=== PATIENT | female | born 1950 | race Caucasian/White ===

== ENCOUNTER 2018-01-22 10:25 | Outpatient (CLI) | payer OTHER, SELFPAY ==
--- NOTE | 2018-01-22 13:00 | SATEXT_ITS ---
Assessment: Ms. Mustafa presents for nutritional counseling s/p multiple bowel surgeries. She has had some unintentional weight loss with loss of muscle mass per Ms. Mustafa and also present on general face to face encounter. Ms. Mustafa reports that she has iron deficiency anemia. She describes that her exercise tolerance has improved but is not at her baseline. Ms. Mustafa also reports that she is working on improving her lipid ratio with her diet. Her dietary recall shows that she has cream of wheat with applesauce and a cup of coffee for breakfast. She drinks water and some jillian juice as well. Lunch varies and she may only have lunch three days per week. She may have a tomato or a yogurt. She eats her dinner meal at home with her . She reports that she is not a big eater, but she may have some protein and a vegetable or some pasta salad with a little protein in it. Ms. Mustafa has been using olive oil and eats tuna and salmon to help with her cholesterol. Nutritional Diagnosis: Inadequate protein intake as evidenced by dietary recall related to history of poor appetite. Inadequate intake of iron as evidenced by iron deficiency anemia per labs in [facility]. Intervention: Acknowledged Ms. Mustafa's excellent efforts at improving her nutritional status with all that has been going on. Reviewed her intake with her and noted that her diet is inadequate in protein. Reviewed the role of protein in healing and building muscle such that her gut will work better and she will build lean body mass. If she builds lean body mass, she will have more strength to do more walking and chores. Ms. Mustafa demonstrated a good understanding of the concepts. We came up with ideas to add protein to her current meal plans. Provided written materials. Also reviewed a high iron nutrition therapy. Suggested that she start an iron supplement in addition to a high iron diet as a high iron diet will often just maintain a good hgb/hct and iron stores but it is difficult to rebuild with a high iron diet. Monitoring and Evaluation: 1. Ms. Mustafa will self monitor her progress on her action plans. She is encouraged to contact me with any questions or concerns regarding her nutrition therapies. 2. Evaluation of her nutrition care plan will be ongoing and she may check in with me and we can adjust it as needed. Thank you for the referral.
== END 2018-01-22 10:26 ==
PROVIDERS: PCP Internal Medicine; Visit Provider Dietitian, Registered
DX: K59.00 Constipation, unspecified (principal); R19.7 Diarrhea, unspecified; Z71.3 Dietary counseling and surveillance
CPT/HCPCS: 97802

== ENCOUNTER 2018-06-04 08:00 | Emergency (ER) | payer OTHER, SELFPAY ==
[2018-06-04 08:07] VITALS: BP 148/65; PULSE 71; RESP 16; TEMP 37; O2SAT 98
--- NOTE | 2018-06-04 08:25 | W.ED.GENAD ---
Discharge Plan Disposition Patient Disposition: HOME Discharge Details Chief Complaint: Laceration Clinical Impression: Laceration of right upper arm, Neck strain Primary Care Provider: Kristen Cline ED Provider: Yong De Santiago Home Meds and New Rx's Prescriptions: Continued Slow Fe 142 mg (45 mg iron) tablet extended release 284 mg PO DAILY Qty: 180 RF: 3 celecoxib 100 mg capsule 100 mg PO BID PRN (Reason: back pain) Qty: 90 RF: 0 estradiol 0.5 mg tablet 0.5 mg PO DAILY Qty: 90 RF: 3 aspirin [Aspirin Low-Strength] 81 MG tablet,chewable 81 mg PO DAILY Qty: 100 RF: 11 nystatin-triamcinolone 15 GM ointment 2 ml Topical BID Qty: 2 RF: 2 cyclobenzaprine 5 MG tablet 5 mg PO TID PRNQty: 30 RF: 1 losartan-hydrochlorothiazide 1 EACH tablet 1 tab PO DAILY Qty: 90 RF: 3 ranitidine HCl 150 MG capsule 150 mg PO BID Qty: 180 RF: 3 dicyclomine 10 mg capsule 20 mg PO TID Qty: 90 RF: 3 ibuprofen 200 MG capsule 400 mg PO PRN PRNRF: 0 melatonin-pyridoxine (vit B6) 1 TAB tablet 2 tab PO HS PRNRF: 0 acetaminophen [Tylenol] 325 MG tablet 650 mg PO Q6H PRN PRNRF: 0 Discharge Instructions Instructions: Cervical Strain (ED), Laceration (ED) Additional Instructions: Please see your doctor return to have suture removal in 10 days. Please contact your primary care physician to arrange follow-up. Return to the ER for any worsening or new concerning symptoms. Referrals: Kristen Cline MD [Primary Care Provider] - Discharge Data Discharge Date/Time-TO BE ENTERED AT DEPARTURE: 06/04/18 09:29 Medical Decision Making 8:30 -- 68-year-old female here with laceration to her right elbow, neurovascular intact distally, no invasion of joint space. -- Wound irrigated with copious sterile saline and closed primarily. Neck nonttp midline, tenderness posterior lateral consistent with strain/sprain. Usual and customary discharge instructions provided. With plan for suture removal in 10 days. HPI General Mode of arrival: ambulatory. Date/Time Provider Initiated Documentation: 06/04/18 08:16. Limitations to Documentation: no limitations. Information obtained by: patient. HPI Narrative: 68-year-old female presents with chief complaint of laceration to her right elbow. This occurred at 530 this morning when she tripped and fell onto a wood pallet. Laceration is moderate with no modifiers. Did not bleed heavily. No associated bony pain or numbness or weakness. She did hit her head during the fall but did not lose consciousness. She has no headache. She does have some neck stiffness right neck that she describes as muscular. Related Data Home Medications Medication Instructions Recorded Confirmed aspirin [Aspirin Low-Strength] 81 mg PO DAILY #100 tab 11/10/12 06/04/18 nystatin-triamcinolone 2 ml TOPICAL BID #2 tube 01/09/16 06/04/18 ibuprofen 400 mg PO PRN PRN 12/28/16 06/04/18 melatonin-pyridoxine (vit B6) 2 tab PO HS PRN 05/21/17 06/04/18 cyclobenzaprine 5 mg PO TID PRN #30 tab-cap 07/01/17 06/04/18 losartan-hydrochlorothiazide 1 tab PO DAILY #90 tab 07/08/17 06/04/18 acetaminophen [Tylenol] 650 mg PO Q6H PRN PRN tab 07/25/17 06/04/18 ranitidine HCl 150 mg PO BID #180 tab-cap 12/16/17 06/04/18 celecoxib 100 mg capsule 100 mg PO BID PRN #90 cap 02/17/18 06/04/18 ferrous sulfate ER 142 mg (45 mg 284 mg PO DAILY #180 tab-cap 02/17/18 06/04/18 iron) tablet,extended release estradiol 0.5 mg tablet 0.5 mg PO DAILY #90 tab 02/23/18 06/04/18 dicyclomine 10 mg capsule 20 mg PO TID #90 tab-cap 05/15/18 06/04/18 Previous Rx's Medication Instructions Recorded losartan-hydrochlorothiazide 1 tab PO DAILY #90 tab 07/08/17 acetaminophen [Tylenol] 650 mg PO Q6H PRN PRN tab 07/25/17 ranitidine HCl 150 mg PO BID #180 tab-cap 12/16/17 celecoxib 100 mg capsule 100 mg PO BID PRN #90 cap 02/17/18 ferrous sulfate ER 142 mg (45 mg 284 mg PO DAILY #180 tab-cap 02/17/18 iron) tablet,extended release estradiol 0.5 mg tablet 0.5 mg PO DAILY #90 tab 02/23/18 dicyclomine 10 mg capsule 20 mg PO TID #90 tab-cap 05/15/18 Allergies Allergy/AdvReac Type Severity Reaction Status Date / Time sumatriptan Allergy Severe Anaphylaxsi Verified 06/04/18 08:10 s ciprofloxacin Allergy Unknown Skin Rash Verified 06/04/18 08:10 morphine AdvReac Severe Nausea Verified 06/04/18 08:10 doxycycline monohydrate AdvReac Intermediate vomiting Verified 06/04/18 08:10 [From Vibramycin] Penicillins AdvReac Intermediate Nausea Verified 06/04/18 08:10 tramadol AdvReac Intermediate dizzyness, Verified 06/04/18 08:10 faintness General Stated Complaint: Laceration RAHEL: 4 Review of Systems Integumentary/Breasts Reports as per HPI Neurologic Reports as per HPI [facility] Medical History Colovaginal fistula Depression Hypercholesterolemia Hypertension Incisional hernia Infertility, female Intestinal anastomotic leak Migraine Ovarian cyst, left Small bowel obstruction due to adhesions Surgical History Abdominal hysterectomy Appendectomy Arthroplasty of knee Colectomy Colostomy Oophrectomy, Both Reduction mammoplasty Right subclavian vein triple lumen central line placement (01/23/16) Rotator Cuff Repair Sigmoidoscopy (05/28/17) Tonsillectomy and adenoidectomy colostomy takedown and MIAK (11/14/15) colostomy takedown and MIKA (07/22/17) colovaginal fistula and abd wall hernia (01/23/16) hernia abdominal wall repair (01/23/16) transforaminal nerve root block (04/27/14) Family History Mother Tuberculosis Hyperlipidemia Breast cancer Father Heart disease Other Diabetes Ovarian cancer Social History Smoking/Tobacco Use Status: Never Exam Const General: cooperative and no acute distress HENMT Head: normocephalic and atraumatic Mouth: moist mucous membranes Eyes Conjunctivae: normal conjunctivae Sclera: normal sclerae EOM: EOM intact bilaterally Neck Neck: normal visual inspection, full ROM, supple, no midline deformity and tender (right posterior lateral with no midline tenderness) Cardio Rate: regular rate and not tachycardic Rhythm: regular rhythm Skin General skin exam: no rashes or lesions noted Trauma: laceration (Right posterior elbow 1 cm with no active bleeding into subcutaneous tissue) Neuro General: alert, awake, oriented x3 and tone normal Cognition: normal cognition Speech: speech normal Motor: muscle tone normal throughout Sensory Exam: no sensory deficits noted (distal RUE) Extrem General: no edema Course Vital Signs Temperature 37 C 06/04/18 08:07 Pulse 71 06/04/18 08:07 Respiratory Rate 16 06/04/18 08:07 Blood Pressure 148/65 H 06/04/18 08:07 Pulse Oximetry 98 06/04/18 08:07 Temperature 37 C 06/04/18 08:07 Temperature Source Skin 06/04/18 08:07 Pulse 71 06/04/18 08:07 Respiratory Rate 16 06/04/18 08:07 Respiratory Effort Non-Labored 06/04/18 08:07 Blood Pressure 148/65 H 06/04/18 08:07 Blood Pressure Position Sitting 06/04/18 08:07 Pulse Oximetry 98 06/04/18 08:07 Oxygen Delivery Method Room Air 06/04/18 08:07 Oxygen Flow Rate 0 06/04/18 08:07 Pain Level 6 06/04/18 08:07 Procedures Laceration Laceration 1: Site: upper extremity Side (If applicable): right Size (cm): 1 Description: linear Depth: simple, single layer Local Anesthetic: Bupivicaine 0.5% Amount of anesthesia used (mL): 1 Pre-repair: wound explored, irrigated extensively and deep structures intact Skin layer closed with: other (prolene) Size (cm): 5-0 Number of sutures: 1 Technique: horizontal mattress
--- NOTE | 2018-06-04 08:33 | ED.GENADUL_ITS ---
Discharge Plan Disposition Patient Disposition: HOME Discharge Details Chief Complaint: Laceration Clinical Impression: Laceration of right upper arm, Neck strain Primary Care Provider: Kristen Cline ED Provider: Yong De Santiago Home Meds and New Rx's Prescriptions: Continued Slow Fe 142 mg (45 mg iron) tablet extended release 284 mg PO DAILY Qty: 180 RF: 3 celecoxib 100 mg capsule 100 mg PO BID PRN (Reason: back pain) Qty: 90 RF: 0 estradiol 0.5 mg tablet 0.5 mg PO DAILY Qty: 90 RF: 3 aspirin [Aspirin Low-Strength] 81 MG tablet,chewable 81 mg PO DAILY Qty: 100 RF: 11 nystatin-triamcinolone 15 GM ointment 2 ml Topical BID Qty: 2 RF: 2 cyclobenzaprine 5 MG tablet 5 mg PO TID PRNQty: 30 RF: 1 losartan-hydrochlorothiazide 1 EACH tablet 1 tab PO DAILY Qty: 90 RF: 3 ranitidine HCl 150 MG capsule 150 mg PO BID Qty: 180 RF: 3 dicyclomine 10 mg capsule 20 mg PO TID Qty: 90 RF: 3 ibuprofen 200 MG capsule 400 mg PO PRN PRNRF: 0 melatonin-pyridoxine (vit B6) 1 TAB tablet 2 tab PO HS PRNRF: 0 acetaminophen [Tylenol] 325 MG tablet 650 mg PO Q6H PRN PRNRF: 0 Discharge Instructions Instructions: Cervical Strain (ED), Laceration (ED) Additional Instructions: Please see your doctor return to have suture removal in 10 days. Please contact your primary care physician to arrange follow-up. Return to the ER for any worsening or new concerning symptoms. Referrals: Kristen Cline MD [Primary Care Provider] - Discharge Data Discharge Date/Time-TO BE ENTERED AT DEPARTURE: 06/04/18 09:29 Medical Decision Making 8:30 -- 68-year-old female here with laceration to her right elbow, neurovascular intact distally, no invasion of joint space. -- Wound irrigated with copious sterile saline and closed primarily. Neck nonttp midline, tenderness posterior lateral consistent with strain/sprain. Usual and customary discharge instructions provided. With plan for suture removal in 10 days. HPI General Mode of arrival: ambulatory . Date/Time Provider Initiated Documentation: 06/04/18 08:16 . Limitations to Documentation: no limitations . Information obtained by: patient . HPI Narrative: 68-year-old female presents with chief complaint of laceration to her right elbow. This occurred at 530 this morning when she tripped and fell onto a wood pallet. Laceration is moderate with no modifiers. Did not bleed heavily. No associated bony pain or numbness or weakness. She did hit her head during the fall but did not lose consciousness. She has no headache. She does have some neck stiffness right neck that she describes as muscular. Related Data Home Medications Medication Instructions Recorded Confirmed aspirin [Aspirin Low-Strength] 81 mg PO DAILY #100 tab 11/10/12 06/04/18 nystatin-triamcinolone 2 ml TOPICAL BID #2 tube 01/09/16 06/04/18 ibuprofen 400 mg PO PRN PRN 12/28/16 06/04/18 melatonin-pyridoxine (vit B6) 2 tab PO HS PRN 05/21/17 06/04/18 cyclobenzaprine 5 mg PO TID PRN #30 tab-cap 07/01/17 06/04/18 losartan-hydrochlorothiazide 1 tab PO DAILY #90 tab 07/08/17 06/04/18 acetaminophen [Tylenol] 650 mg PO Q6H PRN PRN tab 07/25/17 06/04/18 ranitidine HCl 150 mg PO BID #180 tab-cap 12/16/17 06/04/18 celecoxib 100 mg capsule 100 mg PO BID PRN #90 cap 02/17/18 06/04/18 ferrous sulfate ER 142 mg (45 mg 284 mg PO DAILY #180 tab-cap 02/17/18 06/04/18 iron) tablet,extended release estradiol 0.5 mg tablet 0.5 mg PO DAILY #90 tab 02/23/18 06/04/18 dicyclomine 10 mg capsule 20 mg PO TID #90 tab-cap 05/15/18 06/04/18 Previous Rx's Medication Instructions Recorded losartan-hydrochlorothiazide 1 tab PO DAILY #90 tab 07/08/17 acetaminophen [Tylenol] 650 mg PO Q6H PRN PRN tab 07/25/17 ranitidine HCl 150 mg PO BID #180 tab-cap 12/16/17 celecoxib 100 mg capsule 100 mg PO BID PRN #90 cap 02/17/18 ferrous sulfate ER 142 mg (45 mg 284 mg PO DAILY #180 tab-cap 02/17/18 iron) tablet,extended release estradiol 0.5 mg tablet 0.5 mg PO DAILY #90 tab 02/23/18 dicyclomine 10 mg capsule 20 mg PO TID #90 tab-cap 05/15/18 Allergies Allergy/AdvReac Type Severity Reaction Status Date / Time sumatriptan Allergy Severe Anaphylaxsi Verified 06/04/18 08:10 s ciprofloxacin Allergy Unknown Skin Rash Verified 06/04/18 08:10 morphine AdvReac Severe Nausea Verified 06/04/18 08:10 doxycycline monohydrate AdvReac Intermediate vomiting Verified 06/04/18 08:10 [From Vibramycin] Penicillins AdvReac Intermediate Nausea Verified 06/04/18 08:10 tramadol AdvReac Intermediate dizzyness, Verified 06/04/18 08:10 faintness General Stated Complaint: Laceration RAHEL: 4 Review of Systems Integumentary/Breasts Reports as per HPI Neurologic Reports as per HPI [facility] Medical History Colovaginal fistula Depression Hypercholesterolemia Hypertension Incisional hernia Infertility, female Intestinal anastomotic leak Migraine Ovarian cyst, left Small bowel obstruction due to adhesions Surgical History Abdominal hysterectomy Appendectomy Arthroplasty of knee Colectomy Colostomy Oophrectomy, Both Reduction mammoplasty Right subclavian vein triple lumen central line placement (01/23/16) Rotator Cuff Repair Sigmoidoscopy (05/28/17) Tonsillectomy and adenoidectomy colostomy takedown and MIKA (11/14/15) colostomy takedown and MIKA (07/22/17) colovaginal fistula and abd wall hernia (01/23/16) hernia abdominal wall repair (01/23/16) transforaminal nerve root block (04/27/14) Family History Mother Tuberculosis Hyperlipidemia Breast cancer Father Heart disease Other Diabetes Ovarian cancer Social History Smoking/Tobacco Use Status: Never Exam Const General: cooperative and no acute distress HENMT Head: normocephalic and atraumatic Mouth: moist mucous membranes Eyes Conjunctivae: normal conjunctivae Sclera: normal sclerae EOM: EOM intact bilaterally Neck Neck: normal visual inspection, full ROM, supple, no midline deformity and tender (right posterior lateral with no midline tenderness) Cardio Rate: regular rate and not tachycardic Rhythm: regular rhythm Skin General skin exam: no rashes or lesions noted Trauma: laceration (Right posterior elbow 1 cm with no active bleeding into subcutaneous tissue) Neuro General: alert, awake, oriented x3 and tone normal Cognition: normal cognition Speech: speech normal Motor: muscle tone normal throughout Sensory Exam: no sensory deficits noted (distal RUE) Extrem General: no edema Course Vital Signs Temperature 37 C 06/04/18 08:07 Pulse 71 06/04/18 08:07 Respiratory Rate 16 06/04/18 08:07 Blood Pressure 148/65 H 06/04/18 08:07 Pulse Oximetry 98 06/04/18 08:07 Temperature 37 C 06/04/18 08:07 Temperature Source Skin 06/04/18 08:07 Pulse 71 06/04/18 08:07 Respiratory Rate 16 06/04/18 08:07 Respiratory Effort Non-Labored 06/04/18 08:07 Blood Pressure 148/65 H 06/04/18 08:07 Blood Pressure Position Sitting 06/04/18 08:07 Pulse Oximetry 98 06/04/18 08:07 Oxygen Delivery Method Room Air 06/04/18 08:07 Oxygen Flow Rate 0 06/04/18 08:07 Pain Level 6 06/04/18 08:07 Procedures Laceration Laceration 1: Site: upper extremity Side (If applicable): right Size (cm): 1 Description: linear Depth: simple, single layer Local Anesthetic: Bupivicaine 0.5% Amount of anesthesia used (mL): 1 Pre-repair: wound explored, irrigated extensively and deep structures intact Skin layer closed with: other (prolene) Size (cm): 5-0 Number of sutures: 1 Technique: horizontal mattress
[2018-06-04] MEDS: Lidocaine/Epinephri/Tetracaine Topical Gel 3 ML TP (08:35)
[2018-06-04] MEDS: Bupivacaine 0.5% Pres-Free 30 ML VIAL IJ (08:35)
== END 2018-06-04 09:29 | disposition home or self-care (01) ==
PROVIDERS: Emergency Provider Student in an Organized Health Care Education/Training Program; PCP Internal Medicine
DX: S51.011A Laceration without foreign body of right elbow, initial encounter (principal); S16.1XXA Strain of muscle, fascia and tendon at neck level, initial encounter; W01.190A Fall on same level from slipping, tripping and stumbling with subsequent striking against furniture, initial encounter; I10 Essential (primary) hypertension
CPT/HCPCS: 12001; 99282

== ENCOUNTER 2018-06-23 02:17 | Outpatient (CLI) | payer OTHER, SELFPAY ==
[2018-06-23 11:59] LABS: ALT 24 U/L (12-78); AST 18 U/L (15-37); Albumin 3.6 g/dL (3.4-5.0); Alkaline Phosphatase 87 U/L (46-116); Anion Gap 8.6 mmol/L (3-11); BUN 21 mg/dL (7-18); Bilirubin, Total 0.5 mg/dL (0.2-1.0); CO2 29.4 mmol/L (21.0-32.0); CREATININE 0.88 mg/dL (0.55-1.02); Calcium 9.1 mg/dL (8.5-10.1); Chloride 100 mmol/L (98-107); Glucose 93 mg/dL (70-100); Sodium 138 mmol/L (136-145); TSH 0.53 uIU/mL (0.358-3.74); Total Protein 6.9 g/dL (6.4-8.2)
== END 2018-06-23 02:37 ==
PROVIDERS: PCP Internal Medicine; Visit Provider Internal Medicine
DX: E88.09 Other disorders of plasma-protein metabolism, not elsewhere classified (principal); G47.19 Other hypersomnia; I10 Essential (primary) hypertension; D64.9 Anemia, unspecified
CPT/HCPCS: 36415; 80053; 84443

== ENCOUNTER 2018-07-06 00:39 | Outpatient (CLI) | payer OTHER, SELFPAY ==
--- NOTE | 2018-07-06 12:18 | DI.MAMMO_ITS ---
SYMPTOMS/DIAGNOSIS: SCREENING, Z12.31 MAMMOGRAM: Mammograms were interpreted according to the usual protocol including computer analysis with CAD system, tomosynthesis and C view imaging. Comparison is made with exams from 2012 through 2017. The breasts are composed of heterogeneously dense fibroglandular tissue, breast density Category C. No suspicious masses or suspicious microcalcifications are seen. There has been no significant change. IMPRESSION: Category IC, negative mammogram. Yearly screening mammography is recommended. [facility] ASSESSMENT OF FINDINGS: Negative. Category 1. Patient will receive a letter notifying them of these results. Bi-RADS category C. The breasts are heterogeneously dense, which may obscure small masses.
== END 2018-07-06 00:59 ==
PROVIDERS: PCP Internal Medicine; Visit Provider Nurse Practitioner Family
DX: Z12.31 Encounter for screening mammogram for malignant neoplasm of breast (principal)
CPT/HCPCS: 77063; 77067

== ENCOUNTER 2018-08-12 04:22 | Observation (INO) | payer OTHER, SELFPAY ==
[2018-08-12 04:25] VITALS: BP 147/78; PULSE 103; RESP 16; TEMP 36.3; O2SAT 99
--- NOTE | 2018-08-12 04:27 | DI.CT_ITS ---
SYMPTOM/DIAGNOSIS: ABD PAIN, ? OBSTRUCTION ABDOMEN AND PELVIC CT: A history of hernia repair and also colostomy with reversal in this patient with mid abdominal pain. The study was carried out according to the usual protocol with an intravenous administration of 84 cc's of Omnipaque 350. The lower thorax is unremarkable. There are apparent simple cysts in the left hepatic lobe. The liver is otherwise unremarkable with no evidence of a mass. The gallbladder is distended. There are no stones. There is no ductal dilatation. The pancreas, spleen and adrenals are normal. The kidneys are intact with no evidence of hydronephrosis or a mass or cyst. Evaluation of the bowel reveals suture lines in the upper pelvis to the left of the midline in the vicinity of a periventricular ventral hernia. Dilated fluid filled thickened loops of small bowel are noted in the abdomen and upper pelvis. A transition point is probably in the right lower quadrant adjacent to stasis within a dilated small bowel loop. There is no evidence of an acute appendix. The bladder is unremarkable. The reproductive organs as visualized are unremarkable. There is no evidence of free air or free fluid in the intraperitoneal space. No acute bony abnormality is seen. There are degenerative changes involving the lumbar spine with multi level disc narrowing and a vacuum disc identified at L 4-5. Note is made of a ventral hernia in the supra-umbilical wall which contains fat. A ventral hernia is noted in the tri- umbilical wall containing bowel loops with relative decompression presumably representing portions of the transverse colon. There is no abdominal aortic aneurysm. There is no lymphadenopathy or evidence of an intra-abdominal or pelvic mass. SUMMARY: Findings consistent with small bowel obstruction with a presumed transition point in the right lower quadrant. Please see the above discussion.
--- NOTE | 2018-08-12 04:31 | W.ED.GENAD ---
Discharge Plan Disposition Patient Disposition: [facility] INPATIENT Condition: Stable Discharge Details Chief Complaint: Abd Prob Clinical Impression: SBO (small bowel obstruction) Primary Care Provider: Kristen Cline ED Provider: Marlon Anne Home Meds and New Rx's Prescriptions: No Action Slow Fe 142 mg (45 mg iron) tablet extended release 284 mg PO DAILY Qty: 180 RF: 3 celecoxib 100 mg capsule 100 mg PO BID PRN (Reason: back pain) Qty: 90 RF: 0 estradiol 0.5 mg tablet 0.5 mg PO DAILY Qty: 90 RF: 3 aspirin [Aspirin Low-Strength] 81 MG tablet,chewable 81 mg PO DAILY Qty: 100 RF: 11 ranitidine HCl 150 MG capsule 150 mg PO BID Qty: 180 RF: 3 dicyclomine 10 mg capsule 20 mg PO TID Qty: 90 RF: 3 losartan-hydrochlorothiazide 50-12.5 mg tablet 1 tab PO DAILY Qty: 90 RF: 3 melatonin-pyridoxine (vit B6) 1 TAB tablet 2 tab PO HS PRNRF: 0 acetaminophen [Tylenol] 325 MG tablet 650 mg PO Q6H PRN PRNRF: 0 Medical Decision Making 68 yo female with hx of multiple priors surgeries and sbo's, comes in with complaint of I think I have another obstruction. She states she started to have abdominal cramping last night which normally indicates he is developing a sbo. She stopped eating but the symptoms continued and she has nausea, no vomit, so came here. She is in no distress on exam with mild abdominal tenderness of mid and upper abdomen. Will obtain ct to eval for sbo and labs to eval for other potential causes of pain such as pancreatitis. pt remains hd stable, sbo on ct. Spoke with Dr. way who accepts admission Differential Diagnosis sbo, ileus, pancreatitis Imaging Data Radiologic Study: Attestation: I personally reviewed and interpreted this imaging study as follows: Imaging: CT Scan Radiologist's impression: CT Abdomen and Pelvis With Contrast EXAM DATE/TIME: 08/12/2018 4:29 AM CLINICAL HISTORY: 68 years old, female; Pain; Abdominal pain; Localized; Other: Mid abd; Prior surgery; Surgery date: 6+ months; Surgery type: Colostomy and reversal, hernia repair TECHNIQUE: Axial computed tomography images of the abdomen and pelvis with intravenous contrast. All CT scans at this facility use at least one of these dose optimization techniques: automated exposure control; mA and/or kV adjustment per patient size (includes targeted exams where dose is matched to clinical indication); or iterative reconstruction. Coronal and sagittal reformatted images were created and reviewed. CONTRAST: Contrast Material: 84 ml of Omnipaque 350; Contrast Route: IV COMPARISON: CT ABD PELVIS WITH CONTRAST 12/16/2017 11:55 PM FINDINGS: Lower thorax: No acute findings. ABDOMEN: Liver: Simple cyst in the left lobe coronal image 49. Adjacent hypodensity in the left lobe measuring 8 mm is not clearly cystic Gallbladder and bile ducts: Normal. No calcified stones. No ductal dilation. Pancreas: Normal. No ductal dilation. Spleen: Normal. No splenomegaly. CHERRIE CANNON Preliminary Radiology Report REAL ESTATE RECRUITER (QA) DISCREPANCY? If there is a discrepancy between the preliminary and final interpretation, please notify [employer] via [email or web address]. If you do not have access to our QA portal, call our QA team at [phone] CONFIDENTIALITY STATEMENT This report is intended only for the use of the referring physician, and only in accordance with law, If you received this in error, call [phone] Page 2 of 2 Adrenals: Normal. No mass. Kidneys and ureters: Normal. No hydronephrosis. Stomach and bowel: Suture lines noted in the upper pelvis and to the left of midline at the level of the periumbilical ventral hernia Dilated fluid-filled mildly thickened loops of small bowel in the abdomen and upper pelvis. Transition point suspected in the right lower quadrant coronal image 49 adjacent to stasis within a dilated small bowel loop Appendix: No evidence of appendicitis. PELVIS: Bladder: Unremarkable as visualized. Reproductive: Unremarkable as visualized. ABDOMEN and PELVIS: Intraperitoneal space: No free air. No significant fluid collection. Bones/joints: No acute fracture. No dislocation. Degenerative changes in the spine Soft tissues: Ventral hernia in the supraumbilical wall containing fat. Ventral hernia in the periumbilical wall containing bowel loops with relative decompression presumably representing portions of the transverse colon and Vasculature: Normal. No abdominal aortic aneurysm. Lymph nodes: Normal. No enlarged lymph nodes. IMPRESSION: Findings in keeping with small bowel obstruction. Presumed transition point in the right lower quadrant as described Thank you for allowing us to participate in the care of your patient. Lab Data Lab results reviewed: Yes I reviewed the patient's lab results. HPI General Mode of arrival: ambulatory. Date/Time Provider Initiated Documentation: 08/12/18 04:24. Limitations to Documentation: no limitations. Information obtained by: patient. History of Present Illness 68 year old F presents to the emergency department with the chief complaint of abdominal cramping, described as moderate, with intensity rated at 6. Quality is described as sharp, and is localized to the abdomen. Patient reports no radiation. Patient started experiencing this hour(s) (10) and it has been constant. No relieving factors improve symptom(s), No exacerbating factors reported . Patient notes other (nausea). Patient did receive the following treatments prior to arrival, none Related Data Home Medications Medication Instructions Recorded Confirmed aspirin [Aspirin Low-Strength] 81 mg PO DAILY #100 tab 11/10/12 06/17/18 melatonin-pyridoxine (vit B6) 2 tab PO HS PRN 05/21/17 06/17/18 acetaminophen [Tylenol] 650 mg PO Q6H PRN PRN tab 07/25/17 06/17/18 ranitidine HCl 150 mg PO BID #180 tab-cap 12/16/17 06/17/18 celecoxib 100 mg capsule 100 mg PO BID PRN #90 cap 02/17/18 06/17/18 ferrous sulfate ER 142 mg (45 mg 284 mg PO DAILY #180 tab-cap 02/17/18 06/17/18 iron) tablet,extended release estradiol 0.5 mg tablet 0.5 mg PO DAILY #90 tab 02/23/18 06/17/18 dicyclomine 10 mg capsule 20 mg PO TID #90 tab-cap 05/15/18 06/17/18 losartan 50 mg-hydrochlorothiazide 1 tab PO DAILY #90 tab 07/14/18 12.5 mg tablet Previous Rx's Medication Instructions Recorded acetaminophen [Tylenol] 650 mg PO Q6H PRN PRN tab 07/25/17 ranitidine HCl 150 mg PO BID #180 tab-cap 12/16/17 celecoxib 100 mg capsule 100 mg PO BID PRN #90 cap 02/17/18 ferrous sulfate ER 142 mg (45 mg 284 mg PO DAILY #180 tab-cap 02/17/18 iron) tablet,extended release estradiol 0.5 mg tablet 0.5 mg PO DAILY #90 tab 02/23/18 dicyclomine 10 mg capsule 20 mg PO TID #90 tab-cap 05/15/18 losartan 50 mg-hydrochlorothiazide 1 tab PO DAILY #90 tab 07/14/18 12.5 mg tablet Allergies Allergy/AdvReac Type Severity Reaction Status Date / Time sumatriptan Allergy Severe Anaphylaxsi Verified 06/17/18 08:52 s ciprofloxacin Allergy Unknown Skin Rash Verified 06/17/18 08:52 morphine AdvReac Severe Nausea Verified 06/17/18 08:52 doxycycline monohydrate AdvReac Intermediate vomiting Verified 06/17/18 08:52 [From Vibramycin] Penicillins AdvReac Intermediate Nausea Verified 06/17/18 08:52 tramadol AdvReac Intermediate dizzyness, Verified 06/17/18 08:52 faintness General Stated Complaint: Abd Prob RAHEL: 4 Review of Systems Review of Systems All systems reviewed & are unremarkable except as noted in HPI and below Constitutional Denies chills, Denies fever(s) and Denies weakness ENT Denies change in voice Cardiovascular Denies chest pain and Denies dyspnea Respiratory Denies cough and Denies dyspnea Gastrointestinal Denies vomiting Genitourinary Denies dysuria Musculoskeletal Denies joint swelling Integumentary/Breasts Denies rash Neurologic Denies weakness [facility] Medical History Colovaginal fistula Depression Hypercholesterolemia Hypertension Incisional hernia Infertility, female Intestinal anastomotic leak Migraine Ovarian cyst, left Small bowel obstruction due to adhesions Surgical History Abdominal hysterectomy Appendectomy Arthroplasty of knee Colectomy Colostomy Oophrectomy, Both Reduction mammoplasty Right subclavian vein triple lumen central line placement (01/23/16) Rotator Cuff Repair Sigmoidoscopy (05/28/17) Tonsillectomy and adenoidectomy colostomy takedown and MKIA (11/14/15) colostomy takedown and MIKA (07/22/17) colovaginal fistula and abd wall hernia (01/23/16) hernia abdominal wall repair (01/23/16) transforaminal nerve root block (04/27/14) Family History Mother Tuberculosis Hyperlipidemia Breast cancer Father Heart disease Other Diabetes Ovarian cancer Social History Smoking and Tabacco status: Never Exam Const General: no acute distress Orientation: alert HENMT Head: normal to inspection Ears: external ears normal General nose exam: external nose normal Mouth: moist mucous membranes Eyes General: appearance normal, both eyes and all related structures Neck Neck: normal visual inspection Resp Effort & Inspection: normal respiratory effort and able to speak in complete sentences Cardio Rate: regular rate GI Palpation: soft Skin General skin exam: no rashes or lesions noted Neuro General: alert and oriented x3 Extrem General: normal to inspection Psych Mental Status: mental status grossly normal Course Vital Signs Temperature 36.3 C L 08/12/18 04:25 Pulse 103 H 08/12/18 04:25 Respiratory Rate 16 08/12/18 04:25 Blood Pressure 147/78 H 08/12/18 04:25 Pulse Oximetry 99 08/12/18 04:25 Temperature 36.3 C L 08/12/18 04:25 Temperature Source Temporal Artery Scan 08/12/18 04:25 Pulse 103 H 08/12/18 04:25 Respiratory Rate 16 08/12/18 04:25 Respiratory Effort 08/12/18 04:25 Blood Pressure 147/78 H 08/12/18 04:25 Blood Pressure Position Sitting 08/12/18 04:25 Pulse Oximetry 99 08/12/18 04:25 Oxygen Delivery Method Room Air 08/12/18 04:25 Oxygen Flow Rate 0 08/12/18 04:25
--- NOTE | 2018-08-12 04:35 | ED.GENADUL_ITS ---
Discharge Plan Disposition Patient Disposition: [facility] INPATIENT Condition: Stable Discharge Details Chief Complaint: Abd Prob Clinical Impression: SBO (small bowel obstruction) Primary Care Provider: Kristen Cline ED Provider: Marlon Anne Home Meds and New Rx's Prescriptions: No Action Slow Fe 142 mg (45 mg iron) tablet extended release 284 mg PO DAILY Qty: 180 RF: 3 celecoxib 100 mg capsule 100 mg PO BID PRN (Reason: back pain) Qty: 90 RF: 0 estradiol 0.5 mg tablet 0.5 mg PO DAILY Qty: 90 RF: 3 aspirin [Aspirin Low-Strength] 81 MG tablet,chewable 81 mg PO DAILY Qty: 100 RF: 11 ranitidine HCl 150 MG capsule 150 mg PO BID Qty: 180 RF: 3 dicyclomine 10 mg capsule 20 mg PO TID Qty: 90 RF: 3 losartan-hydrochlorothiazide 50-12.5 mg tablet 1 tab PO DAILY Qty: 90 RF: 3 melatonin-pyridoxine (vit B6) 1 TAB tablet 2 tab PO HS PRNRF: 0 acetaminophen [Tylenol] 325 MG tablet 650 mg PO Q6H PRN PRNRF: 0 Medical Decision Making 68 yo female with hx of multiple priors surgeries and sbo's, comes in with complaint of I think I have another obstruction. She states she started to have abdominal cramping last night which normally indicates he is developing a sbo. She stopped eating but the symptoms continued and she has nausea, no vomit, so came here. She is in no distress on exam with mild abdominal tenderness of mid and upper abdomen. Will obtain ct to eval for sbo and labs to eval for other potential causes of pain such as pancreatitis. pt remains hd stable, sbo on ct. Spoke with Dr. way who accepts admission Differential Diagnosis sbo, ileus, pancreatitis Imaging Data Radiologic Study: Attestation: I personally reviewed and interpreted this imaging study as follows: Imaging: CT Scan Radiologist's impression: CT Abdomen and Pelvis With Contrast EXAM DATE/TIME: 08/12/2018 4:29 AM CLINICAL HISTORY: 68 years old, female; Pain; Abdominal pain; Localized; Other: Mid abd; Prior surgery; Surgery date: 6+ months; Surgery type: Colostomy and reversal, hernia repair TECHNIQUE: Axial computed tomography images of the abdomen and pelvis with intravenous contrast. All CT scans at this facility use at least one of these dose optimization techniques: automated exposure control; mA and/or kV adjustment per patient size (includes targeted exams where dose is matched to clinical indication); or iterative reconstruction. Coronal and sagittal reformatted images were created and reviewed. CONTRAST: Contrast Material: 84 ml of Omnipaque 350; Contrast Route: IV COMPARISON: CT ABD PELVIS WITH CONTRAST 12/16/2017 11:55 PM FINDINGS: Lower thorax: No acute findings. ABDOMEN: Liver: Simple cyst in the left lobe coronal image 49. Adjacent hypodensity in the left lobe measuring 8 mm is not clearly cystic Gallbladder and bile ducts: Normal. No calcified stones. No ductal dilation. Pancreas: Normal. No ductal dilation. Spleen: Normal. No splenomegaly. CHERRIE CANNON Preliminary Radiology Report PROPERTY AND CASUALTY INSURANCE AGENT (QA) DISCREPANCY? If there is a discrepancy between the preliminary and final interpretation, please notify [employer] via [email or web address]. If you do not have access to our QA portal, call our QA team at [phone] CONFIDENTIALITY STATEMENT This report is intended only for the use of the referring physician, and only in accordance with law, If you received this in error, call [phone] Page 2 of 2 Adrenals: Normal. No mass. Kidneys and ureters: Normal. No hydronephrosis. Stomach and bowel: Suture lines noted in the upper pelvis and to the left of midline at the level of the periumbilical ventral hernia Dilated fluid-filled mildly thickened loops of small bowel in the abdomen and upper pelvis. Transition point suspected in the right lower quadrant coronal image 49 adjacent to stasis within a dilated small bowel loop Appendix: No evidence of appendicitis. PELVIS: Bladder: Unremarkable as visualized. Reproductive: Unremarkable as visualized. ABDOMEN and PELVIS: Intraperitoneal space: No free air. No significant fluid collection. Bones/joints: No acute fracture. No dislocation. Degenerative changes in the spine Soft tissues: Ventral hernia in the supraumbilical wall containing fat. Ventral hernia in the periumbilical wall containing bowel loops with relative decompression presumably representing portions of the transverse colon and Vasculature: Normal. No abdominal aortic aneurysm. Lymph nodes: Normal. No enlarged lymph nodes. IMPRESSION: Findings in keeping with small bowel obstruction. Presumed transition point in the right lower quadrant as described Thank you for allowing us to participate in the care of your patient. Lab Data Lab results reviewed: Yes I reviewed the patient's lab results. HPI General Mode of arrival: ambulatory . Date/Time Provider Initiated Documentation: 08/12/18 04:24 . Limitations to Documentation: no limitations . Information obtained by: patient . History of Present Illness 68 year old F presents to the emergency department with the chief complaint of abdominal cramping, described as moderate, with intensity rated at 6. Quality is described as sharp, and is localized to the abdomen. Patient reports no radi ation. Patient started experiencing this hour(s) (10) and it has been constant. No relieving factors improve symptom(s), No exacerbating factors reported . Patient notes other (nausea). Patient did receive the following treatments prior to arrival, none Related Data Home Medications Medication Instructions Recorded Confirmed aspirin [Aspirin Low-Strength] 81 mg PO DAILY #100 tab 11/10/12 06/17/18 melatonin-pyridoxine (vit B6) 2 tab PO HS PRN 05/21/17 06/17/18 acetaminophen [Tylenol] 650 mg PO Q6H PRN PRN tab 07/25/17 06/17/18 ranitidine HCl 150 mg PO BID #180 tab-cap 12/16/17 06/17/18 celecoxib 100 mg capsule 100 mg PO BID PRN #90 cap 02/17/18 06/17/18 ferrous sulfate ER 142 mg (45 mg 284 mg PO DAILY #180 tab-cap 02/17/18 06/17/18 iron) tablet,extended release estradiol 0.5 mg tablet 0.5 mg PO DAILY #90 tab 02/23/18 06/17/18 dicyclomine 10 mg capsule 20 mg PO TID #90 tab-cap 05/15/18 06/17/18 losartan 50 mg-hydrochlorothiazide 1 tab PO DAILY #90 tab 07/14/18 12.5 mg tablet Previous Rx's Medication Instructions Recorded acetaminophen [Tylenol] 650 mg PO Q6H PRN PRN tab 07/25/17 ranitidine HCl 150 mg PO BID #180 tab-cap 12/16/17 celecoxib 100 mg capsule 100 mg PO BID PRN #90 cap 02/17/18 ferrous sulfate ER 142 mg (45 mg 284 mg PO DAILY #180 tab-cap 02/17/18 iron) tablet,extended release estradiol 0.5 mg tablet 0.5 mg PO DAILY #90 tab 02/23/18 dicyclomine 10 mg capsule 20 mg PO TID #90 tab-cap 05/15/18 losartan 50 mg-hydrochlorothiazide 1 tab PO DAILY #90 tab 07/14/18 12.5 mg tablet Allergies Allergy/AdvReac Type Severity Reaction Status Date / Time sumatriptan Allergy Severe Anaphylaxsi Verified 06/17/18 08:52 s ciprofloxacin Allergy Unknown Skin Rash Verified 06/17/18 08:52 morphine AdvReac Severe Nausea Verified 06/17/18 08:52 doxycycline monohydrate AdvReac Intermediate vomiting Verified 06/17/18 08:52 [From Vibramycin] Penicillins AdvReac Intermediate Nausea Verified 06/17/18 08:52 tramadol AdvReac Intermediate dizzyness, Verified 06/17/18 08:52 faintness General Stated Complaint: Abd Prob RAHEL: 4 Review of Systems Review of Systems All systems reviewed & are unremarkable except as noted in HPI and below Constitutional Denies chills, Denies fever(s) and Denies weakness ENT Denies change in voice Cardiovascular Denies chest pain and Denies dyspnea Respiratory Denies cough and Denies dyspnea Gastrointestinal Denies vomiting Genitourinary Denies dysuria Musculoskeletal Denies joint swelling Integumentary/Breasts Denies rash Neurologic Denies weakness [facility] Medical History Colovaginal fistula Depression Hypercholesterolemia Hypertension Incisional hernia Infertility, female Intestinal anastomotic leak Migraine Ovarian cyst, left Small bowel obstruction due to adhesions Surgical History Abdominal hysterectomy Appendectomy Arthroplasty of knee Colectomy Colostomy Oophrectomy, Both Reduction mammoplasty Right subclavian vein triple lumen central line placement (01/23/16) Rotator Cuff Repair Sigmoidoscopy (05/28/17) Tonsillectomy and adenoidectomy colostomy takedown and MIKA (11/14/15) colostomy takedown and MIKA (07/22/17) colovaginal fistula and abd wall hernia (01/23/16) hernia abdominal wall repair (01/23/16) transforaminal nerve root block (04/27/14) Family History Mother Tuberculosis Hyperlipidemia Breast cancer Father Heart disease Other Diabetes Ovarian cancer Social History Smoking and Tabacco status: Never Exam Const General: no acute distress Orientation: alert HENMT Head: normal to inspection Ears: external ears normal General nose exam: external nose normal Mouth: moist mucous membranes Eyes General: appearance normal, both eyes and all related structures Neck Neck: normal visual inspection Resp Effort & Inspection: normal respiratory effort and able to speak in complete sentences Cardio Rate: regular rate GI Palpation: soft Skin General skin exam: no rashes or lesions noted Neuro General: alert and oriented x3 Extrem General: normal to inspection Psych Mental Status: mental status grossly normal Course Vital Signs Temperature 36.3 C L 08/12/18 04:25 Pulse 103 H 08/12/18 04:25 Respiratory Rate 16 08/12/18 04:25 Blood Pressure 147/78 H 08/12/18 04:25 Pulse Oximetry 99 08/12/18 04:25 Temperature 36.3 C L 08/12/18 04:25 Temperature Source Temporal Artery Scan 08/12/18 04:25 Pulse 103 H 08/12/18 04:25 Respiratory Rate 16 08/12/18 04:25 Respiratory Effort 08/12/18 04:25 Blood Pressure 147/78 H 08/12/18 04:25 Blood Pressure Position Sitting 08/12/18 04:25 Pulse Oximetry 99 08/12/18 04:25 Oxygen Delivery Method Room Air 08/12/18 04:25 Oxygen Flow Rate 0 08/12/18 04:25
[2018-08-12] MEDS: HYDROmorphone 2 MG/ML VIAL 0.5 MG IVP ×3 (04:55→07:20)
[2018-08-12] MEDS: Normal Saline 1,000 ML 1000 ML IV (04:55)
[2018-08-12] MEDS: Ondansetron 4 MG/2 ML VIAL IVP (04:56)
[2018-08-12 04:57] LABS: Abs Immature Grans 0.04 k/cumm (0.0-0.09); Absolute Basophil Count 0.01 k/cumm (0.0-0.2); Absolute Lymphocyte Count 1.69 k/cumm (1.2-3.4); Absolute Monocyte Count 0.77 k/cumm (0.11-0.7); Absolute Neutrophil Count 11.95 k/cumm (1.2-6.7); Basophils % 0.1; HCT 39.6 % (36.0-46.0); HGB 13.5 g/dL (12.0-15.5); Immature Grans % 0.3; Lymphocytes % 11.7; Mean Corp. HGB Concentration 34.1 g/dL (32.0-36.0); Mean Corpuscular Hemoglobin 32.1 pg (27.0-33.0); Mean Corpuscular Volume 94.1 fL (80-95); Mean Platelet Volume 10.4 fL (8.0-11.0); Monocytes % 5.3; Neutrophils % 82.6; Platelet Count 457 x1000/uL (130-400); RBC 4.21 m/cumm (4.00-5.20); RBC Distribution Width 12.2 % (11.7-14.6); White Blood Cell Count 14.47 k/cumm (4.4-10.8)
[2018-08-12 05:11] LABS: ALT 26 U/L (12-78); AST 20 U/L (15-37); Alkaline Phosphatase 81 U/L (46-116); Anion Gap 13.6 mmol/L (3-11); BUN 19 mg/dL (7-18); Bilirubin, Direct 0.09 mg/dL (0.00-0.20); Bilirubin, Total 0.4 mg/dL (0.2-1.0); CO2 27.4 mmol/L (21.0-32.0); Calcium 9.2 mg/dL (8.5-10.1); Chloride 99 mmol/L (98-107); Glucose 139 mg/dL (70-100); Lipase 163 U/L (73-393); Magnesium 1.9 mg/dL (1.8-2.4); Potassium 3.3 mmol/L (3.5-5.1); Sodium 140 mmol/L (136-145); Total Protein 7.6 g/dL (6.4-8.2)
[2018-08-12] MEDS: Omnipaque 350 MG/ML 100 ML BTL IJ (06:46)
--- NOTE | 2018-08-12 06:49 | DI.VRAD_ITS ---
Addendum created by Cullen Hernandez MD on 08/12/2018 6:51:42 AM EDT THIS REPORT CONTAINS FINDINGS THAT MAY BE CRITICAL TO PATIENT CARE. The findings were verbally communicated via telephone conference with Marlon Anne at 6:51 AM EST on 08/12/2018. The findings were acknowledged and understood. Initial report created on 08/12/2018 6:49:11 AM EDT EXAM: CT Abdomen and Pelvis With Contrast EXAM DATE/TIME: 08/12/2018 4:29 AM CLINICAL HISTORY: 68 years old, female; Pain; Abdominal pain; Localized; Other: Mid abd; Prior surgery; Surgery date: 6+ months; Surgery type: Colostomy and reversal, hernia repair TECHNIQUE: Axial computed tomography images of the abdomen and pelvis with intravenous contrast. All CT scans at this facility use at least one of these dose optimization techniques: automated exposure control; mA and/or kV adjustment per patient size (includes targeted exams where dose is matched to clinical indication); or iterative reconstruction. Coronal and sagittal reformatted images were created and reviewed. CONTRAST: Contrast Material: 84 ml of Omnipaque 350; Contrast Route: IV COMPARISON: CT ABD PELVIS WITH CONTRAST 12/16/2017 11:55 PM FINDINGS: Lower thorax: No acute findings. ABDOMEN: Liver: Simple cyst in the left lobe coronal image 49. Adjacent hypodensity in the left lobe measuring 8 mm is not clearly cystic Gallbladder and bile ducts: Normal. No calcified stones. No ductal dilation. Pancreas: Normal. No ductal dilation. Spleen: Normal. No splenomegaly. Adrenals: Normal. No mass. Kidneys and ureters: Normal. No hydronephrosis. Stomach and bowel: Suture lines noted in the upper pelvis and to the left of midline at the level of the periumbilical ventral hernia Dilated fluid-filled mildly thickened loops of small bowel in the abdomen and upper pelvis. Transition point suspected in the right lower quadrant coronal image 49 adjacent to stasis within a dilated small bowel loop Appendix: No evidence of appendicitis. PELVIS: Bladder: Unremarkable as visualized. Reproductive: Unremarkable as visualized. ABDOMEN and PELVIS: Intraperitoneal space: No free air. No significant fluid collection. Bones/joints: No acute fracture. No dislocation. Degenerative changes in the spine Soft tissues: Ventral hernia in the supraumbilical wall containing fat. Ventral hernia in the periumbilical wall containing bowel loops with relative decompression presumably representing portions of the transverse colon and Vasculature: Normal. No abdominal aortic aneurysm. Lymph nodes: Normal. No enlarged lymph nodes. IMPRESSION: Findings in keeping with small bowel obstruction. Presumed transition point in the right lower quadrant as described Dictated and Authenticated by: Cullen Hernandez MD. Ordering:CRISTY Mason MD
[2018-08-12] MEDS: Normal Saline 1,000 ML 150 ML IV (07:20)
[2018-08-12 07:40] VITALS: BP 136/79; PULSE 85; RESP 16; TEMP 36.9; O2SAT 97
[2018-08-12 07:45] VITALS: BP 120/59; PULSE 85; RESP 16; TEMP 36.3; O2SAT 96
--- NOTE | 2018-08-12 09:59 | PGE_ITS ---
Date of Service Date of service: 08/12/18 Time of Service: 09:56 Subjective Interval history since last seen: pt has long standing hx of surgery and SBO. I did spend about 30 mins reviewing all her Op reports from the last 3 yrs. 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 She has long hx of SBO and is in the hosp about every 6m. She has bentyl which she uses when she feels one coming on. last pn she started having pain and felt very nauseated. the pain progressed and she came into the ED. She had no BS last night. Thi am she does have good BS, nausea has passed. She had pain relief and has been sleeping. No flatus yet no fever chills. no CP or SOB or cough. no dysuria. no leg pain or swelling. She has had no further vaginal d/c. Objective Objective Clinical Data: Abnormal lab results 08/12/18 08/12/18 Range/Units 04:51 04:51 WBC 14.47 H (4.4-10.8) k/cumm Plt Count 457 H (130-400) x1000/uL Absolute Neutrophils 11.95 H (1.2-6.7) k/cumm Absolute Monocytes 0.77 H (0.11-0.7) k/cumm Potassium 3.3 L (3.5-5.1) mmol/L Anion Gap 13.6 H (3-11) mmol/L BUN 19 H (7-18) mg/dL Glucose 139 H (70-100) mg/dL Vital Signs Temperature 36.3 C L 08/12/18 07:45 Temperature Source Temporal Artery Scan 08/12/18 04:25 Pulse 85 08/12/18 07:45 Respiratory Rate 16 08/12/18 07:45 Respiratory Effort 08/12/18 04:25 Blood Pressure 120/59 L 08/12/18 07:45 Blood Pressure Position Sitting 08/12/18 04:25 Pulse Oximetry 96 08/12/18 07:45 Oxygen Delivery Method Room Air 08/12/18 04:25 Oxygen Flow Rate 0 08/12/18 04:25 Pain Level 2 08/12/18 07:45 Intake & Output 03/05/2008/11/18 08/12/18 11:59 23:59 11:59 Weight 58.513 kg Laboratory Results WBC 14.47 k/cumm (4.4-10.8) H 08/12/18 04:51 RBC 4.21 m/cumm (4.00-5.20) 08/12/18 04:51 Hgb 13.5 g/dL (12.0-15.5) 08/12/18 04:51 Hct 39.6 % (36.0-46.0) 08/12/18 04:51 MCV 94.1 fL (80-95) 08/12/18 04:51 MCH 32.1 pg (27.0-33.0) 08/12/18 04:51 MCHC 34.1 g/dL (32.0-36.0) 08/12/18 04:51 RDW 12.2 % (11.7-14.6) 08/12/18 04:51 Plt Count 457 x1000/uL (130-400) H 08/12/18 04:51 MPV 10.4 fL (8.0-11.0) 08/12/18 04:51 Immature Gran % 0.3 08/12/18 04:51 Neutrophils % 82.6 08/12/18 04:51 Lymphocytes % 11.7 08/12/18 04:51 Monocytes % 5.3 08/12/18 04:51 Eosinophils % 0.0 08/12/18 04:51 Basophils % 0.1 08/12/18 04:51 Absolute Neutrophils 11.95 k/cumm (1.2-6.7) H 08/12/18 04:51 Absolute Lymphocytes 1.69 k/cumm (1.2-3.4) 08/12/18 04:51 Absolute Monocytes 0.77 k/cumm (0.11-0.7) H 08/12/18 04:51 Absolute Eosinophils 0.00 k/cumm (0.0-0.7) 08/12/18 04:51 Absolute Basophils 0.01 k/cumm (0.0-0.2) 08/12/18 04:51 Sodium 140 mmol/L (136-145) 08/12/18 04:51 Potassium 3.3 mmol/L (3.5-5.1) L 08/12/18 04:51 Chloride 99 mmol/L (98-107) 08/12/18 04:51 Carbon Dioxide 27.4 mmol/L (21.0-32.0) 08/12/18 04:51 Anion Gap 13.6 mmol/L (3-11) H 08/12/18 04:51 BUN 19 mg/dL (7-18) H 08/12/18 04:51 Creatinine 1.00 mg/dL (0.55-1.02) 08/12/18 04:51 Estimated GFR/1.73 m2 55.30 (mL/min/1.73m2) 08/12/18 04:51 Glucose 139 mg/dL (70-100) H 08/12/18 04:51 Calcium 9.2 mg/dL (8.5-10.1) 08/12/18 04:51 Magnesium 1.9 mg/dL (1.8-2.4) 08/12/18 04:51 Total Bilirubin 0.4 mg/dL (0.2-1.0) 08/12/18 04:51 Conjugated Bilirubin 0.09 mg/dL (0.00-0.20) 08/12/18 04:51 AST 20 U/L (15-37) 08/12/18 04:51 ALT 26 U/L (12-78) 08/12/18 04:51 Alkaline Phosphatase 81 U/L (46-116) 08/12/18 04:51 Total Protein 7.6 g/dL (6.4-8.2) 08/12/18 04:51 Albumin 4.0 g/dL (3.4-5.0) 08/12/18 04:51 Lipase 163 U/L (73-393) 08/12/18 04:51
--- NOTE | 2018-08-12 10:04 | W.PM.HP.N ---
Assessment and Plan (1) Abdominal adhesions: Current visit: No Status: Acute pt has extensive Hx of prior Sx - chart reviewed -she is feeling better after fluids and pain meds She has no N/V currently adn would prefer not to have NGT supportive care pt encouraged to walk (2) SBO (small bowel obstruction): Current visit: Yes Status: Acute (3) Essential hypertension: Current visit: Yes Status: Acute (4) Lumbosacral neuritis: Current visit: No Status: Acute (5) GERD (gastroesophageal reflux disease): Current visit: Yes Status: Chronic History of Present Illness Chief Complaint: sbo Consults Consult date: 08/12/18 Narrative: Interval history since last seen: pt has long standing hx of surgery and SBO. I did spend about 30 mins reviewing all her Op reports from the last 3 yrs. 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 She has long hx of SBO and is in the hosp about every 6m. She has bentyl which she uses when she feels one coming on. last pn she started having pain and felt very nauseated. the pain progressed and she came into the ED. She had no BS last night. Thi am she does have good BS, nausea has passed. She had pain relief and has been sleeping. No flatus yet no fever chills. no CP or SOB or cough. no dysuria. no leg pain or swelling. She has had no further vaginal d/c. Review of Systems Review of Systems All systems reviewed & are unremarkable except as noted in HPI and below Constitutional Reports as per HPI, Reports anorexia, Denies fever(s) and Reports weakness Eyes Reports as per HPI and Denies change in vision ENT Reports system reviewed and no additional complaints, except as docu, Denies dental pain and Denies dysphagia Comments: hx of GERD Cardiovascular Reports as per HPI, Denies chest pain with activity and Denies syncope Comments: hx of htn Respiratory Denies as per HPI, Denies chest congestion and Denies cough Gastrointestinal Reports as per HPI, Reports abdominal pain, Reports cramping, Denies dysphagia and Denies vomiting Comments: no flatus no vaginal discharge Genitourinary Reports system reviewed and no additional complaints, except as docu and Denies dysuria Musculoskeletal Comments: chronic back pain- in part is due to loss of ant abdominal wall Integumentary/Breasts Comments: no lesions or breakdown Neurologic Denies syncope and Reports weakness Endocrine Comments: no DM PFSH Medical History SBO (small bowel obstruction) (Acute) Colovaginal fistula Depression Hypercholesterolemia Hypertension Incisional hernia Infertility, female Intestinal anastomotic leak Migraine Ovarian cyst, left Small bowel obstruction due to adhesions Surgical History Abdominal hysterectomy Appendectomy Arthroplasty of knee Colectomy Colostomy Oophrectomy, Both Reduction mammoplasty Right subclavian vein triple lumen central line placement (01/23/16) Rotator Cuff Repair Sigmoidoscopy (05/28/17) Tonsillectomy and adenoidectomy colostomy takedown and MIKA (11/14/15) colostomy takedown and MIKA (07/22/17) colovaginal fistula and abd wall hernia (01/23/16) hernia abdominal wall repair (01/23/16) transforaminal nerve root block (04/27/14) Family History Mother Tuberculosis Hyperlipidemia Breast cancer Father Heart disease Other Diabetes Ovarian cancer Social History Smoking and Tabacco status: Never Female Reproductive History Menstrual Menopause type: surgical Meds Home Medications Medication Instructions Recorded Confirmed Type aspirin [Aspirin Low-Strength] 81 mg PO DAILY #100 tab 11/10/12 06/17/18 History melatonin-pyridoxine (vit B6) 2 tab PO HS PRN 05/21/17 06/17/18 History acetaminophen [Tylenol] 650 mg PO Q6H PRN PRN tab 07/25/17 06/17/18 Rx ranitidine HCl 150 mg PO BID #180 tab-cap 12/16/17 06/17/18 Rx celecoxib 100 mg capsule 100 mg PO BID PRN #90 cap 02/17/18 06/17/18 Rx ferrous sulfate ER 142 mg (45 mg 284 mg PO DAILY #180 tab-cap 02/17/18 06/17/18 Rx iron) tablet,extended release estradiol 0.5 mg tablet 0.5 mg PO DAILY #90 tab 02/23/18 06/17/18 Rx dicyclomine 10 mg capsule 20 mg PO TID #90 tab-cap 05/15/18 06/17/18 Rx losartan 50 mg-hydrochlorothiazide 1 tab PO DAILY #90 tab 07/14/18 Rx 12.5 mg tablet Allergies Allergy/AdvReac Type Severity Reaction Status Date / Time sumatriptan Allergy Severe Anaphylaxsi Verified 06/17/18 08:52 s ciprofloxacin Allergy Unknown Skin Rash Verified 06/17/18 08:52 morphine AdvReac Severe Nausea Verified 06/17/18 08:52 doxycycline monohydrate AdvReac Intermediate vomiting Verified 06/17/18 08:52 [From Vibramycin] Penicillins AdvReac Intermediate Nausea Verified 06/17/18 08:52 tramadol AdvReac Intermediate dizzyness, Verified 06/17/18 08:52 faintness Exam Const General: cooperative, healthy appearing, comfortable, no acute distress and well developed Nutritional Appearance: average body habitus and well nourished Orientation: awake and oriented x3 HENMT Head: normal to inspection, normocephalic and atraumatic Ears: hearing grossly normal bilaterally General nose exam: external nose normal Face and sinus: normal facial exam Mouth: oral mucosae normal and moist mucous membranes abnormal Teeth and gingiva: dentition normal Eyes General: appearance normal, both eyes and all related structures Conjunctivae: conjunctivae normal Sclera: sclerae normal Pupils: PERRL Chest Chest: normal inspection of the chest Resp Effort & Inspection: normal respiratory effort and able to speak in complete sentences Auscultation: clear to auscultation bilaterally, no rales, no rhonchi and no wheezes Cardio Jugular venous pressure: no JVD Rate: regular rate Rhythm: regular rhythm GI Inspection: scar Palpation: soft Auscultation: abnormal bowel sounds and hyperactive bowel sounds Other: no peritonitis. no R/R/G. +BS- hyperactive. Few are high pitched. loss of domain/lg herniation/retraction of fascia on CT Skin General skin exam: no rashes or lesions noted Other: no open sores or breakdown Extrem General: normal to inspection and no clubbing, cyanosis or edema Results Labs : 08/12/18 04:51 08/12/18 04:51 Laboratory Results - last 24 hr 08/12/18 08/12/18 04:51 04:51 WBC 14.47 H RBC 4.21 Hgb 13.5 Hct 39.6 MCV 94.1 MCH 32.1 MCHC 34.1 RDW 12.2 Plt Count 457 H MPV 10.4 Immature Gran % 0.3 Neutrophils % 82.6 Lymphocytes % 11.7 Monocytes % 5.3 Eosinophils % 0.0 Basophils % 0.1 Absolute Neutrophils 11.95 H Absolute Lymphocytes 1.69 Absolute Monocytes 0.77 H Absolute Eosinophils 0.00 Absolute Basophils 0.01 Sodium 140 Potassium 3.3 L Chloride 99 Carbon Dioxide 27.4 Anion Gap 13.6 H BUN 19 H Creatinine 1.00 Estimated GFR/1.73 m2 55.30 Glucose 139 H Calcium 9.2 Magnesium 1.9 Total Bilirubin 0.4 Conjugated Bilirubin 0.09 AST 20 ALT 26 Alkaline Phosphatase 81 Total Protein 7.6 Albumin 4.0 Lipase 163 Last Vital Signs Temp 36.3 C L 08/12/18 07:45 Pulse 85 08/12/18 07:45 Resp 16 08/12/18 07:45 BP 120/59 L 08/12/18 07:45 Pulse Ox 96 08/12/18 07:45
[2018-08-12] MEDS: ACETAMINOPHEN 1,000 MG/100 ML BTL 400 MG IVPB ×2 (10:28→18:21)
[2018-08-12] MEDS: Lactated Ringers 1,000 ML 125 ML IV ×2 (10:29→19:45)
[2018-08-12] MEDS: FAMOTIDINE 20 MG/50 ML BAG 200 MG IVPB ×2 (11:02→21:41)
[2018-08-12 11:24] VITALS: BP 128/77; PULSE 75; RESP 20; TEMP 36.6; O2SAT 98
[2018-08-12] MEDS: Enoxaparin 30 MG/0.3 ML SYR SC (11:33)
[2018-08-12] MEDS: POTASSIUM CHLORIDE 10 MEQ/100 ML BAG 100 MEQ IVPB (11:34)
[2018-08-12 15:35] VITALS: BP 108/65; PULSE 67; RESP 17; TEMP 36.9; O2SAT 98
[2018-08-12 23:35] VITALS: BP 119/70; PULSE 70; RESP 17; TEMP 36.7; O2SAT 96
[2018-08-13] MEDS: ACETAMINOPHEN 1,000 MG/100 ML BTL 400 MG IVPB ×3 (01:42→19:30)
[2018-08-13] MEDS: Lactated Ringers 1,000 ML 125 ML IV ×2 (03:31→11:14)
[2018-08-13 07:45] VITALS: BP 151/75; PULSE 77; RESP 16; TEMP 36.7; O2SAT 98
--- NOTE | 2018-08-13 09:19 | PHARADMIT ---
Addendum entered by Jovon Carbajal III 08/14/18 11:43: assing Flatus & BM, trying solid foods, possible discharge later today. BP-159/89 pain: 0/10 No Labs Original Note: Admission Pharmacy Clinical Review SMALL BOWEL OBSTRUCTION Code Status Full Code Current Weight Wgt- 58.5 kg Renally Cleared and Narrow Therapeutic Index Meds CrCl~ 50.43 mL/min Meds-OK QTc Value / Action Taken QTc-422 NA BP Control, Fever BP- 151/75 Tmax- 36.7C Electrolytes reviewed Na-139 K+3.3 Mag-1.9 DVT Prophylaxis Lovenox 30MG ?? Opiate Usage / Scheduled Bowel Regimen Ordered Yes No Plt/SCr for Heparin / Enoxaparin Plts- 457 SCr-1.0 INR for Warfarin na H/H stable, WBC/Bands H&H- 13.5/39.6 WBC- 14.47 Antibiotic appropriateness none Cultures and Sensitivities none Surgical ABX d/c within 24 hr na DM control / Insulin Dosing BG- 139 Heart Failure (Check EF%) (HILARY's, B-Block, Diuretics) Losartan, IV to PO Switch No Home Meds Reviewed Yes Home Meds Not Ordered Celebrex, Flexeril, Dicyclomine, Slow-Fe,HCTZ Mycoog-II, Melatonin, Ranitidine Comments
--- NOTE | 2018-08-13 09:21 | W.PM.PROGNOT ---
Date of Service Date of service: 08/13/18 Time of Service: 09:21 Assessment and Plan (1) GERD (gastroesophageal reflux disease): Current visit: Yes Status: Chronic cont H2 blockers (2) SBO (small bowel obstruction): Current visit: Yes Status: Acute pt feeling better today. Bowels are more active and less pain. Passing gas and had a small BM. Will advance diet to CL liq. pt knows what foods she can tolerate adn how her GI system reacts. will hold am labs as no further vomiting and she has been able to tolerate liquids will see how she is tolerating liquids feeling later on this afternoon and poss s/c home is still doing well (3) Ventral hernia: Current visit: Yes Status: Chronic as above Qualifiers: Obstruction and gangrene presence: with obstruction but without gangrene Qualified Code(s): K43.6 - Other and unspecified ventral hernia with obstruction, without gangrene Subjective Patient reports: feels better, voiding w/o difficulty, flatus, bowel movement and afebrile; denies nausea, vomiting and shortness of breath Exam HENMT Head: normal to inspection Ears: hearing grossly normal bilaterally General nose exam: external nose normal Face and sinus: normal facial exam Mouth: oral mucosae normal and tongue normal Teeth and gingiva: dentition normal Eyes Conjunctivae: conjunctivae normal Sclera: sclerae normal Chest Chest: normal inspection of the chest Resp Effort & Inspection: normal respiratory effort Auscultation: clear to auscultation bilaterally, no rales, no rhonchi and no wheezes Cardio Palpation: normal PMI Rate: regular rate GI Inspection: normal to inspection, scaphoid and visible herniation Palpation: soft Auscultation: normal bowel sounds Other: pt is passing gas and had small BM Objective Objective Clinical Data: Vital Signs Temperature 36.7 C 08/13/18 07:45 Temperature Source Tympanic 08/13/18 07:45 Pulse 77 08/13/18 07:45 Pulse Rhythm Regular 08/13/18 00:08 Respiratory Rate 16 08/13/18 07:45 Respiratory Effort 08/13/18 00:08 Respiratory Depth Normal 08/13/18 00:08 Respiratory Pattern Normal 08/13/18 00:08 Blood Pressure 151/75 H 08/13/18 07:45 Blood Pressure Position Sitting 08/12/18 04:25 Pulse Oximetry 98 08/13/18 07:45 Oxygen Delivery Method Room Air 08/13/18 07:45 Oxygen Flow Rate 0 08/13/18 07:45 Pain Level 1 08/13/18 07:45 Intake & Output 08/12/18 08/12/18 08/13/18 11:59 23:59 11:59 Intake Total 625 / 1260.031 0662.333 / 1376.474 4051.833 / 1100.833 Output Total 400 / 900 500 / 900 450 / 450 Balance 225 / 918.333 693.333 / 918.333 650.833 / 650.833 Weight 58.513 kg Intake: IV 625 / 6253.317 9664.333 / 9608.673 3143.833 / 1070.833 Oral 30 / 30 Output: Urine 400 / 900 500 / 900 450 / 450 Other: Urine Color Light Kristina Straw Dark Kristina Urine Appearance Clear Clear Clear Urine Odor Normal Normal Voiding Methods Toilet Toilet Toilet Laboratory Results WBC 14.47 k/cumm (4.4-10.8) H 08/12/18 04:51 RBC 4.21 m/cumm (4.00-5.20) 08/12/18 04:51 Hgb 13.5 g/dL (12.0-15.5) 08/12/18 04:51 Hct 39.6 % (36.0-46.0) 08/12/18 04:51 MCV 94.1 fL (80-95) 08/12/18 04:51 MCH 32.1 pg (27.0-33.0) 08/12/18 04:51 MCHC 34.1 g/dL (32.0-36.0) 08/12/18 04:51 RDW 12.2 % (11.7-14.6) 08/12/18 04:51 Plt Count 457 x1000/uL (130-400) H 08/12/18 04:51 MPV 10.4 fL (8.0-11.0) 08/12/18 04:51 Immature Gran % 0.3 08/12/18 04:51 Neutrophils % 82.6 08/12/18 04:51 Lymphocytes % 11.7 08/12/18 04:51 Monocytes % 5.3 08/12/18 04:51 Eosinophils % 0.0 08/12/18 04:51 Basophils % 0.1 08/12/18 04:51 Absolute Neutrophils 11.95 k/cumm (1.2-6.7) H 08/12/18 04:51 Absolute Lymphocytes 1.69 k/cumm (1.2-3.4) 08/12/18 04:51 Absolute Monocytes 0.77 k/cumm (0.11-0.7) H 08/12/18 04:51 Absolute Eosinophils 0.00 k/cumm (0.0-0.7) 08/12/18 04:51 Absolute Basophils 0.01 k/cumm (0.0-0.2) 08/12/18 04:51 Sodium 140 mmol/L (136-145) 08/12/18 04:51 Potassium 3.3 mmol/L (3.5-5.1) L 08/12/18 04:51 Chloride 99 mmol/L (98-107) 08/12/18 04:51 Carbon Dioxide 27.4 mmol/L (21.0-32.0) 08/12/18 04:51 Anion Gap 13.6 mmol/L (3-11) H 08/12/18 04:51 BUN 19 mg/dL (7-18) H 08/12/18 04:51 Creatinine 1.00 mg/dL (0.55-1.02) 08/12/18 04:51 Estimated GFR/1.73 m2 55.30 (mL/min/1.73m2) 08/12/18 04:51 Glucose 139 mg/dL (70-100) H 08/12/18 04:51 Calcium 9.2 mg/dL (8.5-10.1) 08/12/18 04:51 Magnesium 1.9 mg/dL (1.8-2.4) 08/12/18 04:51 Total Bilirubin 0.4 mg/dL (0.2-1.0) 08/12/18 04:51 Conjugated Bilirubin 0.09 mg/dL (0.00-0.20) 08/12/18 04:51 AST 20 U/L (15-37) 08/12/18 04:51 ALT 26 U/L (12-78) 08/12/18 04:51 Alkaline Phosphatase 81 U/L (46-116) 08/12/18 04:51 Total Protein 7.6 g/dL (6.4-8.2) 08/12/18 04:51 Albumin 4.0 g/dL (3.4-5.0) 08/12/18 04:51 Lipase 163 U/L (73-393) 08/12/18 04:51
--- NOTE | 2018-08-13 09:57 | PDOC.CMIN ---
- If Service Date Differs Date of service: 08/13/18 Time of Service: 09:59 Care Management Initial Assess REASON FOR HOSPITALIZATION:: Abdominal adhesions PAST MEDICAL HISTORY/PAST SURGICAL HISTORY:: SBO (small bowel obstruction) (Acute). Colovaginal fistula. Depression. Hypercholesterolemia. Hypertension. Incisional hernia. Infertility, female. Intestinal anastomotic leak. Migraine. Ovarian cyst, left. Small bowel obstruction due to adhesions. Abdominal hysterectomy. Appendectomy. Arthroplasty of knee. Colectomy. Colostomy. Oophrectomy, Both. Reduction mammoplasty. Right subclavian vein triple lumen central line placement (01/23/16). Rotator Cuff Repair. Sigmoidoscopy (05/28/17). Tonsillectomy and adenoidectomy. colostomy takedown and MIKA (11/14/15). colostomy takedown and MIKA (07/22/17). colovaginal fistula and abd wall hernia (01/23/16). hernia abdominal wall repair (01/23/16). transforaminal nerve root block (04/27/14) PREVIOUS FUNCTIONAL STATUS/SOCIAL/FAMILY SUPPORTS:: Debo resides in [place] with her LINA Salazar. 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 She reports being independent at baseline, drives, and manages ADL's CURRENT FUNCTIONAL STATUS:: Currently Debo is ambulating in her room when this insurance underwriter visits, she is pleasant and receptive to discussion. ADVANCE DIRECTIVES:: On file - Oz Wood is agent, Riana Suazo is alternate Has patient been provided with information about the portal?: Yes Did the patient sign up for the portal?: No (Already signed up) CODE STATUS:: Full Code INSURANCE COVERAGE / FINANCIAL ISSUES:: [employer] CURRENT HOME/COMMUNITY SERVICES/EQUIPMENT:: Currently Debo has no services or medical equipment in the community. PRIMARY CARE PHYSICIAN:: Dr. Cline POTENTIAL DISCHARGE NEEDS:: F/U appointment with Dr. Dent PATIENT/FAMILY EDUCATION NEEDS:: Review DC instructions, any limitations, and ongoing DC planning discussion. Discuss 'ask me three' ANTICIPATED BARRIERS TO DISCHARGE:: None identified at this time TRANSPORTATION:: via private vehicle with LINA Salazar PLAN:: Debo will return home with no anticipated services. She will F/U with Dr. Dent and plan of care as prescribed. Her SO Martin will transport her when ready.
[2018-08-13] MEDS: Losartan 25 MG TAB 50 MG PO (10:00)
[2018-08-13] MEDS: FAMOTIDINE 20 MG/50 ML BAG 200 MG IVPB ×2 (10:00→22:04)
[2018-08-13] MEDS: Enoxaparin 30 MG/0.3 ML SYR SC (10:00)
--- NOTE | 2018-08-13 10:20 | INITIAL_ITS ---
- If Service Date Differs Date of service: 08/13/18 Time of Service: 09:59 Care Management Initial Assess REASON FOR HOSPITALIZATION:: Abdominal adhesions PAST MEDICAL HISTORY/PAST SURGICAL HISTORY:: SBO (small bowel obstruction) (Acute). Colovaginal fistula. Depression. Hypercholesterolemia. Hypertension. Incisional hernia. Infertility, female. Intestinal anastomotic leak. Migraine. Ovarian cyst, left. Small bowel obstruction due to adhesions. Abdominal hysterectomy. Appendectomy. Arthroplasty of knee. Colectomy. Colostomy. Oophrectomy, Both. Reduction mammoplasty. Right subclavian vein triple lumen central line placement (01/23/16). Rotator Cuff Repair. Sigmoidoscopy (05/28/17). Tonsillectomy and adenoidectomy. colostomy takedown and MIKA (11/14/15). colostomy takedown and MIKA (07/22/17). colovaginal fistula and abd wall hernia (01/23/16). hernia abdominal wall repair (01/23/16). transforaminal nerve root block (04/27/14) PREVIOUS FUNCTIONAL STATUS/SOCIAL/FAMILY SUPPORTS:: Debo resides in [place] with her LINA Salazar. 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 She reports being independent at baseline, drives, and manages ADL's CURRENT FUNCTIONAL STATUS:: Currently Debo is ambulating in her room when this fiction and nonfiction writer prose visits, she is pleasant and receptive to discussion. ADVANCE DIRECTIVES:: On file - Oz Wood is agent, Riana Suazo is alternate Has patient been provided with information about the portal?: Yes Did the patient sign up for the portal?: No (Already signed up) CODE STATUS:: Full Code INSURANCE COVERAGE / FINANCIAL ISSUES:: [employer] CURRENT HOME/COMMUNITY SERVICES/EQUIPMENT:: Currently Debo has no services or medical equipment in the community. PRIMARY CARE PHYSICIAN:: Dr. Cline POTENTIAL DISCHARGE NEEDS:: F/U appointment with Dr. Dent PATIENT/FAMILY EDUCATION NEEDS:: Review DC instructions, any limitations, and ongoing DC planning discussion. Discuss 'ask me three' ANTICIPATED BARRIERS TO DISCHARGE:: None identified at this time TRANSPORTATION:: via private vehicle with LINA Salazar PLAN:: Debo will return home with no anticipated services. She will F/U with Dr. Dent and plan of care as prescribed. Her SO Martin will transport her when ready.
[2018-08-13] MEDS: Normal Saline Flush 10 ML SYR IVP ×3 (15:36→22:04)
[2018-08-13] MEDS: Dicyclomine 10 MG CAP 20 MG PO ×2 (15:37→19:30)
[2018-08-13 16:06] VITALS: BP 137/71; PULSE 60; RESP 18; TEMP 36.7; O2SAT 98
[2018-08-13 20:40] VITALS: BP 137/84; PULSE 62; RESP 15; TEMP 36.7; O2SAT 98
[2018-08-14 02:52] VITALS: BP 158/97; PULSE 60; RESP 16; TEMP 36.8; O2SAT 97
[2018-08-14] MEDS: Normal Saline Flush 10 ML SYR IVP ×2 (02:52→11:03)
[2018-08-14] MEDS: ACETAMINOPHEN 1,000 MG/100 ML BTL 400 MG IVPB ×2 (02:52→09:57)
[2018-08-14 07:30] VITALS: BP 159/89; PULSE 67; RESP 18; TEMP 36.3; O2SAT 98
--- NOTE | 2018-08-14 08:09 | PGE_ITS ---
Date of Service Date of service: 08/14/18 Time of Service: 08:03 Assessment and Plan (1) SBO (small bowel obstruction): Current visit: Yes Status: Acute resolving at this point. +flatus and BM feels better will try some more solid foods and see how she feels. possible dc later on today Subjective Patient reports: feels better, pain is less, tolerating liquids well, voiding w/o difficulty, flatus, bowel movement and afebrile; denies vomiting and shortness of breath Interval history since last seen: had BM and gas. feels less bloated and nauseated. no cough. no dysuria. no leg pain or swelling. feels better Exam Const General: cooperative, healthy appearing, comfortable, no acute distress, well developed and well groomed Nutritional Appearance: average body habitus and well nourished Orientation: alert, awake and oriented x3 HENMT Head: normal to inspection, normocephalic and atraumatic Ears: hearing grossly normal bilaterally and external ears normal General nose exam: external nose normal Face and sinus: normal facial exam and sinuses nontender Mouth: oral mucosae normal, lip normal, tongue normal and moist mucous membranes Teeth and gingiva: dentition normal Eyes General: appearance normal, both eyes and all related structures Conjunctivae: conjunctivae normal Sclera: sclerae normal Pupils: PERRL Neck Neck: normal visual inspection and full ROM Chest Chest: normal inspection of the chest Resp Effort & Inspection: normal respiratory effort, able to speak in complete sentences, no cough, no nasal flaring, not tachypneic and no use of accessory muscles Auscultation: clear to auscultation bilaterally, no rales, no rhonchi and no w heezes Cardio Jugular venous pressure: no JVD Rate: regular rate Rhythm: regular rhythm GI Inspection: normal to inspection, no edema, non-distended, incision, scar and visible herniation Palpation: soft, no masses, nontender and No ascites Auscultation: normal bowel sounds Other: good bs. min pain Skin General skin exam: no rashes or lesions noted Trauma: no lacerations or abrasions Neuro General: alert, oriented x3, oriented, gait normal, moves all extremities, no focal motor deficits and CN's II-XI intact bilaterally Cognition: normal cognition Speech: speech normal Gait: normal gait Motor: muscle tone normal throughout Extrem General: normal to inspection, full ROM and no clubbing, cyanosis or edema Psych Appearance: grossly normal and well kempt Mental Status: mental status grossly normal Speech and Movement: speech and movement normal Affect: normal affect Objective Objective Clinical Data: Vital Signs Temperature 36.8 C 08/14/18 02:52 Temperature Source Tympanic 08/14/18 02:52 Pulse 60 08/14/18 02:52 Pulse Rhythm Regular 08/13/18 20:48 Respiratory Rate 16 08/14/18 02:52 Respiratory Effort Non-Labored 08/13/18 20:48 Respiratory Depth Normal 08/13/18 20:48 Respiratory Pattern Normal 08/13/18 20:48 Blood Pressure 158/97 H 08/14/18 02:52 Blood Pressure Position Sitting 08/12/18 04:25 Pulse Oximetry 97 08/14/18 02:52 Oxygen Delivery Method Room Air 08/14/18 02:52 Oxygen Flow Rate 0 08/14/18 02:52 Pain Level 0 08/14/18 07:48 Intake & Output 08/13/18 08/13/18 08/14/18 11:59 23:59 11:59 Intake Total 2115.416 / 4575.416 2460 / 4575.416 470 / 470 Output Total 800 / 1800 1000 / 1800 1150 / 1150 Balance 1315.416 / 2775.416 1460 / 2775.416 -680 / -680 Intake: IV 2085.416 / 3245.416 1160 / 3245.416 110 / 110 Oral 30 / 1330 1300 / 1330 360 / 360 Output: Urine 800 / 1800 1000 / 1800 1150 / 1150 Other: Urine Color Yellow Yellow Yellow Urine Appearance Clear Clear Cloudy Urine Odor Normal Normal Comment Pt voids ind. Voiding Methods Toilet Toilet Toilet Laboratory Results WBC 14.47 k/cumm (4.4-10.8) H 08/12/18 04:51 RBC 4.21 m/cumm (4.00-5.20) 08/12/18 04:51 Hgb 13.5 g/dL (12.0-15.5) 08/12/18 04:51 Hct 39.6 % (36.0-46.0) 08/12/18 04:51 MCV 94.1 fL (80-95) 08/12/18 04:51 MCH 32.1 pg (27.0-33.0) 08/12/18 04:51 MCHC 34.1 g/dL (32.0-36.0) 08/12/18 04:51 RDW 12.2 % (11.7-14.6) 08/12/18 04:51 Plt Count 457 x1000/uL (130-400) H 08/12/18 04:51 MPV 10.4 fL (8.0-11.0) 08/12/18 04:51 Immature Gran % 0.3 08/12/18 04:51 Neutrophils % 82.6 08/12/18 04:51 Lymphocytes % 11.7 08/12/18 04:51 Monocytes % 5.3 08/12/18 04:51 Eosinophils % 0.0 08/12/18 04:51 Basophils % 0.1 08/12/18 04:51 Absolute Neutrophils 11.95 k/cumm (1.2-6.7) H 08/12/18 04:51 Absolute Lymphocytes 1.69 k/cumm (1.2-3.4) 08/12/18 04:51 Absolute Monocytes 0.77 k/cumm (0.11-0.7) H 08/12/18 04:51 Absolute Eosinophils 0.00 k/cumm (0.0-0.7) 08/12/18 04:51 Absolute Basophils 0.01 k/cumm (0.0-0.2) 08/12/18 04:51 Sodium 140 mmol/L (136-145) 08/12/18 04:51 Potassium 3.3 mmol/L (3.5-5.1) L 08/12/18 04:51 Chloride 99 mmol/L (98-107) 08/12/18 04:51 Carbon Dioxide 27.4 mmol/L (21.0-32.0) 08/12/18 04:51 Anion Gap 13.6 mmol/L (3-11) H 08/12/18 04:51 BUN 19 mg/dL (7-18) H 08/12/18 04:51 Creatinine 1.00 mg/dL (0.55-1.02) 08/12/18 04:51 Estimated GFR/1.73 m2 55.30 (mL/min/1.73m2) 08/12/18 04:51 Glucose 139 mg/dL (70-100) H 08/12/18 04:51 Calcium 9.2 mg/dL (8.5-10.1) 08/12/18 04:51 Magnesium 1.9 mg/dL (1.8-2.4) 08/12/18 04:51 Total Bilirubin 0.4 mg/dL (0.2-1.0) 08/12/18 04:51 Conjugated Bilirubin 0.09 mg/dL (0.00-0.20) 08/12/18 04:51 AST 20 U/L (15-37) 08/12/18 04:51 ALT 26 U/L (12-78) 08/12/18 04:51 Alkaline Phosphatase 81 U/L (46-116) 08/12/18 04:51 Total Protein 7.6 g/dL (6.4-8.2) 08/12/18 04:51 Albumin 4.0 g/dL (3.4-5.0) 08/12/18 04:51 Lipase 163 U/L (73-393) 08/12/18 04:51
[2018-08-14] MEDS: Losartan 25 MG TAB 50 MG PO (08:38)
[2018-08-14] MEDS: Dicyclomine 10 MG CAP 20 MG PO ×2 (08:38→15:07)
[2018-08-14] MEDS: Enoxaparin 30 MG/0.3 ML SYR SC (09:57)
[2018-08-14] MEDS: Normal Saline 500 ML 200 ML IV (09:57)
[2018-08-14] MEDS: FAMOTIDINE 20 MG/50 ML BAG 200 MG IVPB (10:26)
--- NOTE | 2018-08-14 11:46 | PDOC.CMDIS ---
- If Service Date Differs Date of service: 08/14/18 Time of Service: 11:46 LACE Index Scoring Tool - Questions: Length of Stay (in days): 2 Acuity (Admit via E.D.?): Yes E.D. Visits: 3 - Answers: Total Score: 8 Risk of Readmission: Low Risk Care Management Discharge Reason for Hospitalization: Abdominal adhesions Discharge Plan: Debo will return home with no services. She will F/U with Dr. Dent and plan of care as prescribed. Debo's SO Martin to transport home. Patient/Family Education Needs: Review DC instructions, any limitations, and discuss 'Ask Me Three'
--- NOTE | 2018-08-14 13:27 | W.PM.PROGNOT ---
Date of Service Date of service: 08/14/18 Time of Service: 13:27 Assessment and Plan (1) SBO (small bowel obstruction): Current visit: Yes Status: Acute pt is doing well. She is tolerating a soft diet and not having any pain. no n/v. she did have a BM this am and she is passing gas. no CP or SOB or cough. no leg pain or swelling. no dysuria. She will be d/alvin to home. f/u PCP prn. same home medications. use bentyl prn for cramps- she says she has enough of this medication. Pt is given a note for work. return to ED if increase in pain/nausea Subjective Interval history since last seen: pt doing well and will be d/c to home Exam GI Inspection: normal to inspection Other: soft and non tender. multiple herniations. Objective Objective Clinical Data: Vital Signs Temperature 36.3 C L 08/14/18 07:30 Temperature Source Tympanic 08/14/18 07:30 Pulse 67 08/14/18 07:30 Pulse Rhythm Regular 08/14/18 07:48 Respiratory Rate 18 08/14/18 07:30 Respiratory Effort Non-Labored 08/14/18 07:48 Respiratory Depth Normal 08/14/18 07:48 Respiratory Pattern Normal 08/14/18 07:48 Blood Pressure 159/89 H 08/14/18 07:30 Blood Pressure Position Sitting 08/12/18 04:25 Pulse Oximetry 98 08/14/18 07:30 Oxygen Delivery Method Room Air 08/14/18 07:30 Oxygen Flow Rate 0 08/14/18 07:30 Pain Level 0 08/14/18 09:57 Intake & Output 08/13/18 08/14/18 08/14/18 23:59 11:59 23:59 Intake Total 2460 / 4575.416 1113.333 / 1353.333 240 / 1353.333 Output Total 1000 / 1800 1650 / 1650 Balance 1460 / 2775.416 -536.667 / -296.667 240 / -296.667 Intake: IV 1160 / 3245.416 393.333 / 393.333 Oral 1300 / 1330 720 / 960 240 / 960 Output: Urine 1000 / 1800 1650 / 1650 Other: Urine Color Yellow Straw Urine Appearance Clear Clear Urine Odor None Comment Pt voids ind. Void x1 in the toilet. Voiding Methods Toilet Toilet Laboratory Results WBC 14.47 k/cumm (4.4-10.8) H 08/12/18 04:51 RBC 4.21 m/cumm (4.00-5.20) 08/12/18 04:51 Hgb 13.5 g/dL (12.0-15.5) 08/12/18 04:51 Hct 39.6 % (36.0-46.0) 08/12/18 04:51 MCV 94.1 fL (80-95) 08/12/18 04:51 MCH 32.1 pg (27.0-33.0) 08/12/18 04:51 MCHC 34.1 g/dL (32.0-36.0) 08/12/18 04:51 RDW 12.2 % (11.7-14.6) 08/12/18 04:51 Plt Count 457 x1000/uL (130-400) H 08/12/18 04:51 MPV 10.4 fL (8.0-11.0) 08/12/18 04:51 Immature Gran % 0.3 08/12/18 04:51 Neutrophils % 82.6 08/12/18 04:51 Lymphocytes % 11.7 08/12/18 04:51 Monocytes % 5.3 08/12/18 04:51 Eosinophils % 0.0 08/12/18 04:51 Basophils % 0.1 08/12/18 04:51 Absolute Neutrophils 11.95 k/cumm (1.2-6.7) H 08/12/18 04:51 Absolute Lymphocytes 1.69 k/cumm (1.2-3.4) 08/12/18 04:51 Absolute Monocytes 0.77 k/cumm (0.11-0.7) H 08/12/18 04:51 Absolute Eosinophils 0.00 k/cumm (0.0-0.7) 08/12/18 04:51 Absolute Basophils 0.01 k/cumm (0.0-0.2) 08/12/18 04:51 Sodium 140 mmol/L (136-145) 08/12/18 04:51 Potassium 3.3 mmol/L (3.5-5.1) L 08/12/18 04:51 Chloride 99 mmol/L (98-107) 08/12/18 04:51 Carbon Dioxide 27.4 mmol/L (21.0-32.0) 08/12/18 04:51 Anion Gap 13.6 mmol/L (3-11) H 08/12/18 04:51 BUN 19 mg/dL (7-18) H 08/12/18 04:51 Creatinine 1.00 mg/dL (0.55-1.02) 08/12/18 04:51 Estimated GFR/1.73 m2 55.30 (mL/min/1.73m2) 08/12/18 04:51 Glucose 139 mg/dL (70-100) H 08/12/18 04:51 Calcium 9.2 mg/dL (8.5-10.1) 08/12/18 04:51 Magnesium 1.9 mg/dL (1.8-2.4) 08/12/18 04:51 Total Bilirubin 0.4 mg/dL (0.2-1.0) 08/12/18 04:51 Conjugated Bilirubin 0.09 mg/dL (0.00-0.20) 08/12/18 04:51 AST 20 U/L (15-37) 08/12/18 04:51 ALT 26 U/L (12-78) 08/12/18 04:51 Alkaline Phosphatase 81 U/L (46-116) 08/12/18 04:51 Total Protein 7.6 g/dL (6.4-8.2) 08/12/18 04:51 Albumin 4.0 g/dL (3.4-5.0) 08/12/18 04:51 Lipase 163 U/L (73-393) 08/12/18 04:51
--- NOTE | 2018-08-20 09:47 | DSE_ITS ---
DS: Diagnosis Discharge Diagnosis (1) SBO (small bowel obstruction): Status: Acute Discharge Plan Disposition Patient Disposition: HOME Condition: Stable Discharge Details Chief Complaint: Abd Prob Reason For Visit: SMALL BOWEL OBSTRUCTION Admit Date/Time: 08/12/18 06:56 Admit Provider: Lia Dent Attending Provider: Lia Dent Primary Care Provider: Kristen Cline ED Provider: Marlon Anne Hospital Course Hospital Course: pt admitted for hydraton and pain control. After 48 hrs she is able to tolerate a soft diet. She had a BM. no cp or sob. no productive cough. no leg pain or swelling. no dysuria. able to tolerate food and no abdom pain. Home Meds and New Rx's Prescriptions: Continued celecoxib 100 mg capsule 100 mg PO BID PRN (Reason: back pain) Qty: 90 RF: 0 estradiol 0.5 mg tablet 0.5 mg PO DAILY Qty: 90 RF: 3 aspirin [Aspirin Low-Strength] 81 MG tablet,chewable 81 mg PO DAILY Qty: 100 RF: 11 ranitidine HCl 150 MG capsule 150 mg PO BID Qty: 180 RF: 3 dicyclomine 10 mg capsule 20 mg PO TID Qty: 90 RF: 3 losartan-hydrochlorothiazide 50-12.5 mg tablet 1 tab PO DAILY Qty: 90 RF: 3 melatonin-pyridoxine (vit B6) 1 TAB tablet 2 tab PO HS PRNRF: 0 acetaminophen [Tylenol] 325 MG tablet 650 mg PO Q6H PRN PRNRF: 0 Discharge Instructions Instructions: Bowel Obstruction (DC) Additional Instructions: push fluids soft diet return to ED if any vomiting Stand Alone Forms: Nursing Discharge Form Referrals: Lia Dent DO [OSTEOPATHIC DOCTOR] - (Call office on Friday for a Follow- up appt) Activity:: Activity as Tolerated Equipment/Supplies:: No Equipment Needed Diet:: soft diet Discharge Orders Discharge Orders: Discharge Order (Routine); Ordered 08/14/18 Ordered By: Lia Dent Discharge Data Discharge Date/Time-TO BE ENTERED AT DEPARTURE: 08/14/18 15:30 Exam Const General: cooperative, healthy appearing, comfortable, no acute distress, well developed and well groomed Nutritional Appearance: average body habitus and well nourished Orientation: alert, awake and oriented x3 HENMT Head: normal to inspection, normocephalic and atraumatic Ears: hearing grossly normal bilaterally and external ears normal General nose exam: external nose normal Face and sinus: normal facial exam and sinuses nontender Mouth: oral mucosae normal, lip normal, tongue normal and moist mucous membranes Teeth and gingiva: dentition normal Eyes General: appearance normal, both eyes and all related structures Conjunctivae: conjunctivae normal Sclera: sclerae normal Pupils: PERRL Neck Neck: normal visual inspection and full ROM Chest Chest: normal inspection of the chest Resp Effort & Inspection: normal respiratory effort, able to speak in complete sentences, no cough, no nasal flaring, not tachypneic and no use of accessory muscles Auscultation: clear to auscultation bilaterally, no rales, no rhonchi and no wheezes Cardio Jugular venous pressure: no JVD Rate: regular rate Rhythm: regular rhythm GI Inspection: normal to inspection, no edema, non-distended and visible herniation Palpation: soft, no masses, nontender and No ascites Auscultation: normal bowel sounds Skin General skin exam: no rashes or lesions noted Trauma: no lacerations or abrasions Neuro General: alert, oriented x3, oriented, gait normal, moves all extremities, no focal motor deficits and CN's II-XI intact bilaterally Cognition: normal cognition Speech: speech normal Gait: normal gait Motor: muscle tone normal throughout Extrem General: normal to inspection, full ROM and no clubbing, cyanosis or edema Psych Appearance: grossly normal and well kempt Mental Status: mental status grossly normal Speech and Movement: speech and movement normal Affect: normal affect DS: Data Vitals/I&O Vitals and I&O: Vital Signs Temperature 36.3 C L 08/14/18 07:30 Temperature Source Tympanic 08/14/18 07:30 Pulse 67 08/14/18 07:30 Pulse Rhythm Regular 08/14/18 07:48 Respiratory Rate 18 08/14/18 07:30 Respiratory Effort Non-Labored 08/14/18 07:48 Respiratory Depth Normal 08/14/18 07:48 Respiratory Pattern Normal 08/14/18 07:48 Blood Pressure 159/89 H 08/14/18 07:30 Blood Pressure Position Sitting 08/12/18 04:25 Pulse Oximetry 98 08/14/18 07:30 Oxygen Delivery Method Room Air 08/14/18 07:30 Oxygen Flow Rate 0 08/14/18 07:30 Pain Level 0 08/14/18 09:57 PFSH Medical History Ventral hernia (Chronic) GERD (gastroesophageal reflux disease) (Chronic) SBO (small bowel obstruction) (Acute) Colovaginal fistula Depression Hypercholesterolemia Hypertension Incisional hernia Infertility, female Intestinal anastomotic leak Migraine Ovarian cyst, left Small bowel obstruction due to adhesions Surgical History Abdominal hysterectomy Appendectomy Arthroplasty of knee Colectomy Colostomy Oophrectomy, Both Reduction mammoplasty Right subclavian vein triple lumen central line placement (01/23/16) Rotator Cuff Repair Sigmoidoscopy (05/28/17) Tonsillectomy and adenoidectomy colostomy takedown and MIKA (11/14/15) colostomy takedown and MIKA (07/22/17) colovaginal fistula and abd wall hernia (01/23/16) hernia abdominal wall repair (01/23/16) transforaminal nerve root block (04/27/14) Family History Mother Tuberculosis Hyperlipidemia Breast cancer Father Heart disease Other Diabetes Ovarian cancer Social History Smoking/Tobacco Use Status: Never Alcohol Intake: never Drug use: Never Substance use type: does not use Do you feel safe at home: Yes Do you feel safe in your relationship?: Yes Female Reproductive History Menstrual Menopause type: surgical
== END 2018-08-14 15:30 | disposition home or self-care (01) ==
LOC: ER 07:17 → MS 07:43
PROVIDERS: Admitting Provider Surgery; Emergency Provider Emergency Medicine; PCP Internal Medicine; Visit Provider Surgery
DX: K56.50 Intestinal adhesions [bands], unspecified as to partial versus complete obstruction (principal); I10 Essential (primary) hypertension; M54.17 Radiculopathy, lumbosacral region; K21.9 Gastro-esophageal reflux disease without esophagitis; K43.6 Other and unspecified ventral hernia with obstruction, without gangrene
CPT/HCPCS: 36415; 80048; 80053; 80076; 83690; 96361; 96374; 99222; 99232; 99238; 99285; NC; 74177; 83735; 85025; 99284; G0378; J0131; J1650; J2405; J3480; J3490

== ENCOUNTER 2018-08-16 11:28 | Emergency (ER) | payer OTHER, SELFPAY ==
[2018-08-16] VITALS (18 sets, daily range): BP systolic 125–177; BP diastolic 67–101; PULSE 60–79; RESP 16; TEMP 37.1; O2SAT 90–99
--- NOTE | 2018-08-16 11:32 | NUR.NOTE ---
pt was seen for and admitted for a bowl obstruction last week at [facility]. PT presents today with nausea and 10/10 abdominal pain URQ ULQ
[2018-08-16 12:05] LABS: Abs Immature Grans 0.02 k/cumm (0.0-0.09); Absolute Basophil Count 0.02 k/cumm (0.0-0.2); Absolute Lymphocyte Count 1.62 k/cumm (1.2-3.4); Absolute Monocyte Count 0.49 k/cumm (0.11-0.7); Absolute Neutrophil Count 9.68 k/cumm (1.2-6.7); Basophils % 0.2; HCT 37.4 % (36.0-46.0); HGB 12.6 g/dL (12.0-15.5); Immature Grans % 0.2; Lymphocytes % 13.7; Mean Corp. HGB Concentration 33.7 g/dL (32.0-36.0); Mean Corpuscular Hemoglobin 32.1 pg (27.0-33.0); Mean Corpuscular Volume 95.2 fL (80-95); Mean Platelet Volume 10.6 fL (8.0-11.0); Monocytes % 4.1; Neutrophils % 81.8; Platelet Count 496 x1000/uL (130-400); RBC 3.93 m/cumm (4.00-5.20); RBC Distribution Width 12.5 % (11.7-14.6); White Blood Cell Count 11.83 k/cumm (4.4-10.8)
--- NOTE | 2018-08-16 12:13 | DI.RAD_ITS ---
SYMPTOM/DIAGNOSIS: ABD PAIN ACUTE ABDOMINAL SERIES; Heart size and pulmonary vasculature are within normal limits. The lungs are clear. No evidence of bowel obstruction, organomegaly or pneumoperitoneum is seen. No acute osseous abnormality is identified. IMPRESSION: No evidence of an acute abdomen.
[2018-08-16 12:15] LABS: ALT 46 U/L (12-78); AST 28 U/L (15-37); Albumin 4.1 g/dL (3.4-5.0); Alkaline Phosphatase 94 U/L (46-116); Anion Gap 9.1 mmol/L (3-11); BUN 13 mg/dL (7-18); Bilirubin, Total 0.4 mg/dL (0.2-1.0); CO2 27.9 mmol/L (21.0-32.0); CREATININE 1.02 mg/dL (0.55-1.02); Calcium 9.8 mg/dL (8.5-10.1); Chloride 102 mmol/L (98-107); Estimated GFR 54.05 (mL/min/1.73m2); Glucose 117 mg/dL (70-100); Lipase 105 U/L (73-393); Potassium 4.4 mmol/L (3.5-5.1); Sodium 139 mmol/L (136-145); Total Protein 7.6 g/dL (6.4-8.2)
--- NOTE | 2018-08-16 12:16 | ED.GENADUL_ITS ---
Discharge Plan Disposition Patient Disposition: [facility] Condition: Serious Discharge Details Chief Complaint: Abd Prob Clinical Impression: Small bowel obstruction Primary Care Provider: Kristen Cline ED Provider: Yong De Santiago Home Meds and New Rx's Prescriptions: No Action celecoxib 100 mg capsule 100 mg PO BID PRN (Reason: back pain) Qty: 90 RF: 0 estradiol 0.5 mg tablet 0.5 mg PO DAILY Qty: 90 RF: 3 aspirin [Aspirin Low-Strength] 81 MG tablet,chewable 81 mg PO DAILY Qty: 100 RF: 11 ranitidine HCl 150 MG capsule 150 mg PO BID Qty: 180 RF: 3 dicyclomine 10 mg capsule 20 mg PO TID Qty: 90 RF: 3 losartan-hydrochlorothiazide 50-12.5 mg tablet 1 tab PO DAILY Qty: 90 RF: 3 melatonin-pyridoxine (vit B6) 1 TAB tablet 2 tab PO HS PRNRF: 0 acetaminophen [Tylenol] 325 MG tablet 650 mg PO Q6H PRN PRNRF: 0 Discharge Data Discharge Date/Time-TO BE ENTERED AT DEPARTURE: 08/16/18 16:05 Medical Decision Making 12:20 --68-year-old female with complicated past surgical history including multiple ostomies with 3 anastomosis, episodic small bowel obstructions, last small bowel obstruction was last week, here today with recurrent diffuse abdominal pain. Tender mid abdomen. Concern for acute surgical pathology including small bowel obstruction versus other pathology. Plan to obtain xray abdominal series. Dilaudid 0.5 mg IV administered for pain. Zofran 4 mg IV administered for pain. IV fluid initiated. I called and spoke with Dr. Horne who knows the patient from prior treatment. She agrees with xray and plan to admit the patient. 14:00 --x-ray of the abdomen reviewed and interpreted by radiology: No acute abnormality. Patient reassessed and notes pain again returned and worsening. We will give a second dose of Dilaudid IV. Plan to CT abdomen and pelvis to assess for acute surgical pathology. --CT interpreted by radiology: IMPRESSION: 1. Small bowel obstruction. Possibility of a closed-loop obstruction. 2. Ventral hernia containing transverse colon without colonic obstruction. Labs reviewed: Leukocytosis noted. Normal lactate 0.7. --Spoke with Dr. Ko and reviewed CT results and she recommends transfer to [facility] [place] given findings and patient complexity. --Patient reassessed and having recurrent pain requiring additional dose of Dilaudid. 15:30 -- Spoke with Dr. Bergman at [facility] [place] who will accept patient in transfer. HPI General Mode of arrival: ambulatory . Date/Time Provider Initiated Documentation: 08/16/18 11:31 . Limitations to Documentation: no limitations . Information obtained by: patient . HPI Narrative: 68-year-old female with complicated surgical history including multiple ostomies and re-anastomosis, seen here last week for small bowel obstruction that was treated nonoperatively, returns today with severe abdominal pain and concern for recurrence of small bowel obstruction. Pain feels similar to prior flare of SBO. Pain is severe. Sharp. Localized mid abdomen. She is associated nausea. She did vomit once this morning. She did have a soft nonbloody bowel movement this morning. Related Data Home Medications Medication Instructions Recorded Confirmed aspirin [Aspirin Low-Strength] 81 mg PO DAILY #100 tab 11/10/12 08/28/18 melatonin-pyridoxine (vit B6) 2 tab PO HS PRN 05/21/17 08/28/18 acetaminophen [Tylenol] 650 mg PO Q6H PRN PRN tab 07/25/17 08/28/18 ranitidine HCl 150 mg PO BID #180 tab-cap 12/16/17 08/28/18 celecoxib 100 mg capsule 100 mg PO BID PRN #90 cap 02/17/18 08/28/18 estradiol 0.5 mg tablet 0.5 mg PO DAILY #90 tab 02/23/18 08/28/18 dicyclomine 10 mg capsule 20 mg PO TID #90 tab-cap 05/15/18 08/28/18 losartan 50 mg-hydrochlorothiazide 1 tab PO DAILY #90 tab 07/14/18 08/28/18 12.5 mg tablet Previous Rx's Medication Instructions Recorded acetaminophen [Tylenol] 650 mg PO Q6H PRN PRN tab 07/25/17 ranitidine HCl 150 mg PO BID #180 tab-cap 12/16/17 celecoxib 100 mg capsule 100 mg PO BID PRN #90 cap 02/17/18 estradiol 0.5 mg tablet 0.5 mg PO DAILY #90 tab 02/23/18 dicyclomine 10 mg capsule 20 mg PO TID #90 tab-cap 05/15/18 losartan 50 mg-hydrochlorothiazide 1 tab PO DAILY #90 tab 07/14/18 12.5 mg tablet Allergies Allergy/AdvReac Type Severity Reaction Status Date / Time sumatriptan Allergy Severe Anaphylaxsi Verified 08/28/18 11:29 s ciprofloxacin Allergy Unknown Skin Rash Verified 08/28/18 11:29 morphine AdvReac Severe Nausea Verified 08/28/18 11:29 doxycycline monohydrate AdvReac Intermediate vomiting Verified 08/28/18 11:29 [From Vibramycin] Penicillins AdvReac Intermediate Nausea Verified 08/28/18 11:29 tramadol AdvReac Intermediate dizzyness, Verified 08/28/18 11:29 faintness General Stated Complaint: Abd Prob RAHEL: 3 Review of Systems Review of Systems All systems reviewed & are unremarkable except as noted in HPI and below Constitutional Denies fever(s) Cardiovascular Denies dyspnea Respiratory Denies cough and Denies dyspnea Gastrointestinal Reports abdominal pain, Reports nausea and Reports vomiting PFSH Medical History Ventral hernia (Chronic) GERD (gastroesophageal reflux disease) (Chronic) SBO (small bowel obstruction) (Acute) Colovaginal fistula Depression Hypercholesterolemia Hypertension Incisional hernia Infertility, female Intestinal anastomotic leak Migraine Ovarian cyst, left Small bowel obstruction due to adhesions Surgical History Abdominal hysterectomy Appendectomy Arthroplasty of knee Colectomy Colostomy Oophrectomy, Both Reduction mammoplasty Right subclavian vein triple lumen central line placement (01/23/16) Rotator Cuff Repair Sigmoidoscopy (05/28/17) Tonsillectomy and adenoidectomy colostomy takedown and MIKA (11/14/15) colostomy takedown and MIKA (07/22/17) colovaginal fistula and abd wall hernia (01/23/16) hernia abdominal wall repair (01/23/16) transforaminal nerve root block (04/27/14) Family History Mother Tuberculosis Hyperlipidemia Breast cancer Father Heart disease Other Diabetes Ovarian cancer Social History Smoking/Tobacco Use Status: Never Alcohol Intake: never Drug use: Never Substance use type: does not use Do you feel safe at home: Yes Do you feel safe in your relationship?: Yes Female Reproductive History Menstrual Menopause type: surgical Exam Const General: cooperative and no acute distress HENOR Head: normocephalic Mouth: moist mucous membranes Eyes Conjunctivae: normal conjunctivae Sclera: normal sclerae Neck Neck: trachea midline and supple Resp Auscultation: clear to auscultation bilaterally, no rales, no rhonchi and no wheezes Cardio Jugular venous pressure: no JVD Rate: regular rate and not tachycardic Rhythm: regular rhythm GI Inspection: non-distended Palpation: soft, not firm, no guarding, no masses, not rigid and tender (mid abdomen) with no rebound tenderness Auscultation: hypoactive bowel sounds Skin General skin exam: no rashes or lesions noted Neuro General: alert, awake and tone normal Extrem General: no edema Course Vital Signs Temperature 37.1 C 08/16/18 11:33 Pulse 70 08/16/18 11:33 Respiratory Rate 16 08/16/18 11:33 Blood Pressure 177/74 H 08/16/18 11:33 Pulse Oximetry 99 08/16/18 11:33 Temperature 37.1 C 08/16/18 11:33 Temperature Source Skin 08/16/18 11:33 Pulse 70 08/16/18 11:33 Respiratory Rate 16 08/16/18 11:33 Respiratory Effort 08/16/18 12:07 Blood Pressure 177/74 H 08/16/18 11:33 Blood Pressure Position Sitting 08/16/18 11:33 Pulse Oximetry 99 08/16/18 11:33 Oxygen Delivery Method Room Air 08/16/18 11:33 Oxygen Flow Rate 0 08/16/18 11:33 Pain Level 10 08/16/18 11:33 Lab/Test Results Lab/Test Results: Laboratory Tests Range/Units 08/16/18 11:50 WBC (4.4-10.8) k/cumm 11.83 H RBC (4.00-5.20) m/cumm 3.93 L Hgb (12.0-15.5) g/dL 12.6 Hct (36.0-46.0) % 37.4 MCV (80-95) fL 95.2 H MCH (27.0-33.0) pg 32.1 MCHC (32.0-36.0) g/dL 33.7 RDW (11.7-14.6) % 12.5 Plt Count (130-400) x1000/uL 496 H MPV (8.0-11.0) fL 10.6 Immature Gran % 0.2 Neutrophils % 81.8 Lymphocytes % 13.7 Monocytes % 4.1 Eosinophils % 0.0 Basophils % 0.2 Absolute Neutrophils (1.2-6.7) k/cumm 9.68 H Absolute Lymphocytes (1.2-3.4) k/cumm 1.62 Absolute Monocytes (0.11-0.7) k/cumm 0.49 Absolute Eosinophils (0.0-0.7) k/cumm 0.00 Absolute Basophils (0.0-0.2) k/cumm 0.02
[2018-08-16] MEDS: HYDROmorphone 2 MG/ML VIAL 0.5 MG IVP ×2 (12:18→13:49)
[2018-08-16] MEDS: Normal Saline 1,000 ML 1000 ML IV (12:19)
[2018-08-16] MEDS: Ondansetron 4 MG/2 ML VIAL IVP (12:19)
--- NOTE | 2018-08-16 13:02 | DI.VRAD_ITS ---
EXAM: XR Abdomen 2 Views with XR Chest 1 View EXAM DATE/TIME: 08/16/2018 12:14 PM CLINICAL HISTORY: 68 years old, female; Signs and symptoms; Other: Abdominal pain; Patient HX: Patient states long history of bowel obstructions TECHNIQUE: XR of the abdomen (2 views) with XR chest (1 view). COMPARISON: CR PORTABLE CHEST ONE VIEW 01/23/2016 3:30 PM FINDINGS: Lungs: No acute lung consolidation or pulmonary edema. Pleural space: No pleural effusion or pneumothorax. Heart/Mediastinum: The heart is not enlarged. The mediastinal contours are normal. Gastrointestinal tract: No dilated gas-filled loops of bowel. No suspicious air-fluid levels. Intraperitoneal space: No pneumoperitoneum. Organs: No radiopaque renal or ureteral calculi. Bones/joints: No acute osseous abnormality. Multilevel facet arthropathy is present in the lower lumbar spine. Soft tissues: Normal. IMPRESSION: No acute abnormality. Dictated and Authenticated by: Santiago Lehman MD. Ordering:NATALIE Beach MD
[2018-08-16] MEDS: Omnipaque 350 MG/ML 100 ML BTL IJ (14:02)
--- NOTE | 2018-08-16 14:10 | DI.CT_ITS ---
SYMPTOM/DIAGNOSIS: ABD PAIN, TENDER MID ABDOMEN ABDOMEN AND PELVIC CT: CT scan of the abdomen and pelvis was performed following the uneventful administration of intravenous contrast material. Comparison is made with 08/12/18. The visualized lung bases are clear. The liver is normal in size. There are hepatic cysts. No suspicious hepatic masses are seen. The portal, superior mesenteric and splenic veins are patent. The gallbladder is negative. No biliary ductal dilatation is seen. The pancreas, spleen and adrenal glands are unremarkable. The kidneys show normal and symmetric enhancement. No evidence of a solid renal mass or obstruction. The urinary bladder is intact. The reproductive organs are unremarkable. The abdominal aorta is of normal caliber without evidence of aneurysmal dilatation. No significant abdominal or pelvic adenopathy, ascites or pneumoperitoneum is seen. Post surgical changes are seen in the small bowel. There are dilated loops of small bowel seen predominantly in the lower abdomen and pelvis. The proximal small bowel appears of relatively normal caliber. The distal ileum is of normal caliber. There are a few areas of bowel wall thickening seen in the distal ileum. The colon is of normal caliber with a moderate amount of stool. There is again seen an anterior abdominal wall hernia containing an unremarkable loop of transverse colon. No acute osseous abnormality is seen. Degenerative changes are present in the spine. IMPRESSION: Findings most suspicious for a small bowel obstruction with moderately dilated loops of bowel predominantly in the lower abdomen and pelvis. Mild bowel wall thickening seen in several loops of small bowel and an inflammatory or infectious enteritis cannot be excluded. Ventral hernia containing an unremarkable loop of transverse colon.
--- NOTE | 2018-08-16 14:37 | DI.VRAD_ITS ---
Addendum created by Santiago Lehman MD on 08/16/2018 2:52:25 PM EDT THIS REPORT CONTAINS FINDINGS THAT MAY BE CRITICAL TO PATIENT CARE. The findings were verbally communicated via telephone conference with Yong De Santiago at 2:50 PM EDT on 08/16/2018. The findings were acknowledged and understood. Initial report created on 08/16/2018 2:36:53 PM EDT EXAM: CT Abdomen and Pelvis With Contrast EXAM DATE/TIME: 08/16/2018 2:05 PM CLINICAL HISTORY: 68 years old, female; Pain; Abdominal pain; Generalized; Patient HX: Abdominal pain, tender mid abd. TECHNIQUE: Axial computed tomography images of the abdomen and pelvis with intravenous contrast. All CT scans at this facility use at least one of these dose optimization techniques: automated exposure control; mA and/or kV adjustment per patient size (includes targeted exams where dose is matched to clinical indication); or iterative reconstruction. Coronal and sagittal reformatted images were created and reviewed. CONTRAST: Contrast Material: 100 ml of omnipaque 350; Contrast Route: iv COMPARISON: CT ABDOMEN PELVIS W 08/12/2018 5:04 AM FINDINGS: Lower thorax: No acute basilar lung consolidation. ABDOMEN: Liver: The liver is not enlarged. There are hepatic cysts. Gallbladder and bile ducts: No calcified gallstones, gallbladder wall thickening, or pericholecystic inflammation. No biliary ductal dilation. Pancreas: No peripancreatic inflammation or pancreatic ductal dilation. Spleen: The spleen is homogeneous and is not enlarged. Adrenals: No adrenal mass. Kidneys and ureters: No hydronephrosis. Cannot exclude nonobstructing renal calculi as there is excreted contrast in the collecting systems. No renal mass. Stomach and bowel: Prior bowel surgery with bowel sutures involving the small bowel in the left pelvis and the distal transverse colon. There are dilated fluid-filled loops of small bowel in the lower abdomen and pelvis. There is a small bowel feces sign compatible with small bowel stasis. The proximal small bowel is not distended. The distal small bowel likewise is not distended. Some of the loops of small bowel have a radial or U-shaped appearance. There are some loops of small bowel with thickened low. There is associated mesenteric edema or inflammation. No pneumatosis intestinalis. The colon is not obstructed. No diverticulitis. Appendix: The appendix is not visualized. PELVIS: Bladder: No urinary bladder calculus or wall thickening. Reproductive: Unremarkable as visualized. ABDOMEN and PELVIS: Intraperitoneal space: No ascites or pneumoperitoneum. Bones/joints: There is disc degeneration with vacuum disc at L4-L5. There is multilevel facet arthropathy in the lumbar spine. Soft tissues: A wide-mouth ventral hernia is redemonstrated. This contains primarily transverse colon and the near edge of one or 2 loops of small bowel. Vasculature: No abdominal aortic aneurysm. No iliac or common femoral artery aneurysm. The mesenteric arteries are patent. The mesenteric, portal, and hepatic veins are patent. Lymph nodes: No pathologically enlarged lymph nodes. IMPRESSION: 1. Small bowel obstruction. Possibility of a closed-loop obstruction. 2. Ventral hernia containing transverse colon without colonic obstruction. Dictated and Authenticated by: Santiago Lehman MD. Ordering:NATALIE Beach MD
[2018-08-16 15:15] LABS: Lactate-non-spesis 0.7 mmol/l (0.6-1.4)
[2018-08-16] MEDS: HYDROmorphone 2 MG/ML VIAL (15:41)
[2018-08-16] MEDS: Lactated Ringers 1,000 ML 125 ML IV (15:41)
== END 2018-08-16 16:05 | disposition short-term general hospital (02) ==
PROVIDERS: Emergency Provider Student in an Organized Health Care Education/Training Program; PCP Internal Medicine
DX: K56.609 Unspecified intestinal obstruction, unspecified as to partial versus complete obstruction (principal); Z93.2 Ileostomy status; I10 Essential (primary) hypertension
CPT/HCPCS: 36415; 80053; 83690; 96361; 96374; 96375; 96376; 99285; 74022; 74177; 83605; 85025; J2405; J3490

== ENCOUNTER 2018-11-06 16:50 | Observation (INO) | payer OTHER, SELFPAY ==
[2018-11-06] VITALS (8 sets, daily range): BP systolic 124–156; BP diastolic 70–84; PULSE 73–98; RESP 16–20; TEMP 36.6–36.7; O2SAT 96–99
--- NOTE | 2018-11-06 17:13 | W.ED.GENAD ---
Discharge Plan Disposition Patient Disposition: [facility] INPATIENT Condition: Fair Discharge Details Chief Complaint: Abd Prob Clinical Impression: Small bowel obstruction due to adhesions Admit Date/Time: 11/06/18 19:11 Admit Provider: Bora Schulte Attending Provider: Bora Schulte Primary Care Provider: Kristen Cline ED Provider: Norma Sanches Discharge Instructions Activity:: Activity as Tolerated Equipment/Supplies:: No Equipment Needed Diet:: Low residue Discharge Orders Discharge Orders: Discharge Order (Routine); Ordered 11/07/18 Ordered By: Bora Schulte Discharge Data Discharge Date/Time-TO BE ENTERED AT DEPARTURE: 11/06/18 20:20 Medical Decision Making Patient is 68-year-old female presenting today with concern for small bowel obstruction. Patient has had multiple obstructions in the past, reports that typically she has been every 4 to 6 months. Last obstruction was in July of this year. At that time, she was transferred to [facility] with concern for surgical abdomen. She reports that she did not in fact undergo surgery while there and cleared while in the hospital. She denies any fevers or chills. Reported symptoms against a few hours ago. States that typically her obstructions begin more on the right side but this is more central abdomen. She reports that otherwise this feels classic for 1 of her small bowel obstructions. Patient endorses nausea but no vomiting. States that she had multiple loose bowel movements a day which is typical for her on the onset of her obstructions. Patient I discussed approach to treatment and she prefers to be more conservative. We will begin with KUB and labs. Reviewed labs, labs are reassuring. She does have some blood cells in the urine. No leukocytosis, lactate is normal. Reexamined the patient. She reports that her pain is increasing. She is having some tenderness in the left lower quadrant. She reports that this is typical for her SBO she is experienced in the past. Denies any history of diverticulitis or diverticulosis. Again, the patient I discussed imaging and she would continue to prefer to hold off on this at this time. Patient I discussed treatment options. With her history, despite a reassuring gas pattern on x-ray and reassuring laboratory evaluation, I remain concern for possible developing SBO. Consulted with Dr. Schulte who agrees to admit the patient for observation. I discussed this plan with the patient who is in agreement. Patient is receiving IV hydration. Pain persists and has responded well to narcotics. HPI General Mode of arrival: ambulatory. Date/Time Provider Initiated Documentation: 11/06/18 17:12. Limitations to Documentation: no limitations. Information obtained by: patient, family and RN notes reviewed. History of Present Illness 68 year old F presents to the emergency department with the chief complaint of abdominal pain, described as moderate and similar to prior episodes, with intensity rated at 8. Quality is described as other (cramping), and is localized to the abdomen. Patient reports no radiation. Patient started experiencing this hour(s) (2) and it has been constant. No relieving factors improve symptom(s), No exacerbating factors reported . Patient notes loss of appetite and nausea/vomiting; denies chest pain, cough, fever/chills, headaches, rash, shortness of breath and weakness. Patient did receive the following treatments prior to arrival, none Related Data Home Medications Medication Instructions Recorded Confirmed aspirin [Aspirin Low-Strength] 81 mg PO DAILY #100 tab 11/10/12 11/06/18 melatonin-pyridoxine (vit B6) 2 tab PO HS PRN 05/21/17 11/06/18 acetaminophen [Tylenol] 650 mg PO Q6H PRN PRN tab 07/25/17 11/06/18 ranitidine HCl 150 mg PO BID #180 tab-cap 12/16/17 11/06/18 celecoxib 100 mg capsule 100 mg PO BID PRN #90 cap 02/17/18 08/28/18 estradiol 0.5 mg tablet 0.5 mg PO DAILY #90 tab 02/23/18 11/06/18 losartan 50 mg-hydrochlorothiazide 1 tab PO DAILY #90 tab 07/14/18 11/06/18 12.5 mg tablet dicyclomine 10 mg capsule 20 mg PO TID #90 tab-cap 10/30/18 11/06/18 sulfamethoxazole-trimethoprim 1 tab PO Q12H #6 tab 11/07/18 Previous Rx's Medication Instructions Recorded acetaminophen [Tylenol] 650 mg PO Q6H PRN PRN tab 07/25/17 ranitidine HCl 150 mg PO BID #180 tab-cap 12/16/17 celecoxib 100 mg capsule 100 mg PO BID PRN #90 cap 09/18/18 estradiol 0.5 mg tablet 0.5 mg PO DAILY #90 tab 02/23/18 losartan 50 mg-hydrochlorothiazide 1 tab PO DAILY #90 tab 07/14/18 12.5 mg tablet dicyclomine 10 mg capsule 20 mg PO TID #90 tab-cap 10/30/18 sulfamethoxazole-trimethoprim 1 tab PO Q12H #6 tab 11/07/18 Allergies Allergy/AdvReac Type Severity Reaction Status Date / Time sumatriptan Allergy Severe Anaphylaxsi Verified 11/06/18 17:02 s ciprofloxacin Allergy Unknown Skin Rash Verified 11/06/18 17:02 morphine AdvReac Severe Nausea Verified 11/06/18 17:02 doxycycline monohydrate AdvReac Intermediate vomiting Verified 11/06/18 17:02 [From Vibramycin] Penicillins AdvReac Intermediate Nausea Verified 11/06/18 17:02 tramadol AdvReac Intermediate dizzyness, Verified 11/06/18 17:02 faintness General Stated Complaint: Abd Prob RAHEL: 3 Review of Systems Constitutional Reports as per HPI, Denies chills, Denies fatigue, Denies fever(s) and Denies headache(s) ENT Denies headache(s) Cardiovascular Reports as per HPI, Denies chest pain and Denies dyspnea Respiratory Reports as per HPI, Denies cough and Denies dyspnea Gastrointestinal Reports as per HPI Genitourinary Reports system reviewed and no additional complaints, except as docu (Patient denies change in urinary habit) Musculoskeletal Reports as per HPI and Denies back pain Integumentary/Breasts Reports as per HPI and Denies rash Neurologic Reports as per HPI and Denies headache(s) Endocrine Denies fatigue [facility] Medical History Ventral hernia (Chronic) GERD (gastroesophageal reflux disease) (Chronic) SBO (small bowel obstruction) (Acute) Colovaginal fistula Depression Hypercholesterolemia Hypertension Incisional hernia Infertility, female Intestinal anastomotic leak Migraine Ovarian cyst, left Small bowel obstruction due to adhesions Surgical History Abdominal hysterectomy Appendectomy Arthroplasty of knee Colectomy Colostomy Oophrectomy, Both Reduction mammoplasty Right subclavian vein triple lumen central line placement (01/23/16) Rotator Cuff Repair Sigmoidoscopy (05/28/17) Tonsillectomy and adenoidectomy colostomy takedown and MIKA (11/14/15) colostomy takedown and MIKA (07/22/17) colovaginal fistula and abd wall hernia (01/23/16) hernia abdominal wall repair (01/23/16) transforaminal nerve root block (04/27/14) Family History Mother Tuberculosis Hyperlipidemia Breast cancer Father Heart disease Other Diabetes Ovarian cancer Social History Smoking/Tobacco Use Status: Never Alcohol Intake: current Alcohol Intake frequency: a few times a week Alcohol type: wine Drug use: Never Substance use type: does not use Do you feel safe at home: Yes Do you feel safe in your relationship?: Yes Female Reproductive History Menstrual Menopause type: surgical Exam Const General: cooperative, healthy appearing, comfortable, no acute distress and well developed Nutritional Appearance: average body habitus and well nourished Orientation: alert and awake HENMO Head: normal to inspection Mouth: mucous membranes dry (appears slightly dry) Resp Effort & Inspection: normal respiratory effort, able to speak in complete sentences and no respiratory distress Auscultation: clear to auscultation bilaterally, no rales, no rhonchi and no wheezes Cardio Rate: regular rate Rhythm: regular rhythm Heart Sounds: S1 normal and S2 normal GI Inspection: distended and no large pannus Palpation: soft, no hepatosplenomegaly and guarding (periumbilical) in the LLQ Percussion: dullness to percussion Auscultation: hypoactive bowel sounds Back/Spine/Pelvis Back: no CVA tenderness Skin General skin exam: no rashes or lesions noted Trauma: no lacerations or abrasions Neuro General: alert and awake Cognition: normal cognition Speech: speech normal Gait: normal gait Extrem General: no pedal edema and no calf tenderness Psych Appearance: grossly normal and well kempt Mental Status: mental status grossly normal Speech and Movement: speech and movement normal Course Vital Signs Temperature 36.6 C 11/06/18 16:58 Pulse 98 H 11/06/18 16:58 Respiratory Rate 20 11/06/18 16:58 Blood Pressure 156/84 H 11/06/18 16:58 Pulse Oximetry 98 11/06/18 16:58 Temperature 36.6 C 11/06/18 16:58 Temperature Source Skin 11/06/18 16:58 Pulse 98 H 11/06/18 16:58 Respiratory Rate 20 11/06/18 16:58 Blood Pressure 156/84 H 11/06/18 16:58 Blood Pressure Position Supine 11/06/18 16:58 Pulse Oximetry 98 11/06/18 16:58 Oxygen Delivery Method Room Air 11/06/18 16:58 Oxygen Flow Rate 0 11/06/18 16:58 Pain Level 8 11/06/18 16:58
[2018-11-06] MEDS: Normal Saline 1,000 ML 500 ML IV (17:40)
--- NOTE | 2018-11-06 17:41 | ED.GENADUL_ITS ---
Discharge Plan Disposition Patient Disposition: [facility] INPATIENT Condition: Fair Discharge Details Chief Complaint: Abd Prob Clinical Impression: Small bowel obstruction due to adhesions Admit Date/Time: 11/06/18 19:11 Admit Provider: Bora Schulte Attending Provider: Bora Schulte Primary Care Provider: Kristen Cline ED Provider: Norma Sanches Discharge Instructions Activity:: Activity as Tolerated Equipment/Supplies:: No Equipment Needed Diet:: Low residue Discharge Orders Discharge Orders: Discharge Order (Routine); Ordered 11/07/18 Ordered By: Bora Schulte Discharge Data Discharge Date/Time-TO BE ENTERED AT DEPARTURE: 11/06/18 20:20 Medical Decision Making Patient is 68-year-old female presenting today with concern for small bowel obstruction. Patient has had multiple obstructions in the past, reports that typically she has been every 4 to 6 months. Last obstruction was in July of this year. At that time, she was transferred to [facility] with concern for surgical abdomen. She reports that she did not in fact undergo surgery while there and cleared while in the hospital. She denies any fevers or chills. Reported symptoms against a few hours ago. States that typically her obstructions begin more on the right side but this is more central abdomen. She reports that otherwise this feels classic for 1 of her small bowel obstructions. Patient endorses nausea but no vomiting. States that she had multiple loose bowel movements a day which is typical for her on the onset of her obstructions. Patient I discussed approach to treatment and she prefers to be more conservative. We will begin with KUB and labs. Reviewed labs, labs are reassuring. She does have some blood cells in the urine. No leukocytosis, lactate is normal. Reexamined the patient. She reports that her pain is increasing. She is having some tenderness in the left lower quadrant. She reports that this is typical for her SBO she is experienced in the past. Denies any history of diverticulitis or diverticulosis. Again, the patient I discussed imaging and she would continue to prefer to hold off on this at this time. Patient I discussed treatment options. With her history, despite a reassuring gas pattern on x-ray and reassuring laboratory evaluation, I remain concern for possible developing SBO. Consulted with Dr. Schulte who agrees to admit the patient for observation. I discussed this plan with the patient who is in agreement. Patient is receiving IV hydration. Pain persists and has responded well to narcotics. HPI General Mode of arrival: ambulatory . Date/Time Provider Initiated Documentation: 11/06/18 17:12 . Limitations to Documentation: no limitations . Information obtained by: patient, family and RN notes reviewed . History of Present Illness 68 year old F presents to the emergency department with the chi ef complaint of abdominal pain, described as moderate and similar to prior episodes, with intensity rated at 8. Quality is described as other (cramping), and is localized to the abdomen. Patient reports no radiation. Patient started experiencing this hour(s) (2) and it has been constant. No relieving factors improve symptom(s), No exacerbating factors reported . Patient notes loss of appetite and nausea/vomiting; denies chest pain, cough, fever/chills, headaches, rash, shortness of breath and weakness. Patient did receive the following treatments prior to arrival, none Related Data Home Medications Medication Instructions Recorded Confirmed aspirin [Aspirin Low-Strength] 81 mg PO DAILY #100 tab 11/10/12 11/06/18 melatonin-pyridoxine (vit B6) 2 tab PO HS PRN 05/21/17 11/06/18 acetaminophen [Tylenol] 650 mg PO Q6H PRN PRN tab 07/25/17 11/06/18 ranitidine HCl 150 mg PO BID #180 tab-cap 12/16/17 11/06/18 celecoxib 100 mg capsule 100 mg PO BID PRN #90 cap 02/17/18 08/28/18 estradiol 0.5 mg tablet 0.5 mg PO DAILY #90 tab 02/23/18 11/06/18 losartan 50 mg-hydrochlorothiazide 1 tab PO DAILY #90 tab 07/14/18 11/06/18 12.5 mg tablet dicyclomine 10 mg capsule 20 mg PO TID #90 tab-cap 10/30/18 11/06/18 sulfamethoxazole-trimethoprim 1 tab PO Q12H #6 tab 11/07/18 Previous Rx's Medication Instructions Recorded acetaminophen [Tylenol] 650 mg PO Q6H PRN PRN tab 07/25/17 ranitidine HCl 150 mg PO BID #180 tab-cap 12/16/17 celecoxib 100 mg capsule 100 mg PO BID PRN #90 cap 02/17/18 estradiol 0.5 mg tablet 0.5 mg PO DAILY #90 tab 02/23/18 losartan 50 mg-hydrochlorothiazide 1 tab PO DAILY #90 tab 07/14/18 12.5 mg tablet dicyclomine 10 mg capsule 20 mg PO TID #90 tab-cap 10/30/18 sulfamethoxazole-trimethoprim 1 tab PO Q12H #6 tab 11/07/18 Allergies Allergy/AdvReac Type Severity Reaction Status Date / Time sumatriptan Allergy Severe Anaphylaxsi Verified 11/06/18 17:02 s ciprofloxacin Allergy Unknown Skin Rash Verified 11/06/18 17:02 morphine AdvReac Severe Nausea Verified 11/06/18 17:02 doxycycline monohydrate AdvReac Intermediate vomiting Verified 11/06/18 17:02 [From Vibramycin] Penicillins AdvReac Intermediate Nausea Verified 11/06/18 17:02 tramadol AdvReac Intermediate dizzyness, Verified 11/06/18 17:02 faintness General Stated Complaint: Abd Prob RAHEL: 3 Review of Systems Constitutional Reports as per HPI, Denies chills, Denies fatigue, Denies fever(s) and Denies headache(s) ENT Denies headache(s) Cardiovascular Reports as per HPI, Denies chest pain and Denies dyspnea Respiratory Reports as per HPI, Denies cough and Denies dyspnea Gastrointestinal Reports as per HPI Genitourinary Reports system reviewed and no additional complaints, except as docu (Patient denies change in urinary habit) Musculoskeletal Reports as per HPI and Denies back pain Integumentary/Breasts Reports as per HPI and Denies rash Neurologic Reports as per HPI and Denies headache(s) Endocrine Denies fatigue [facility] Medical History Ventral hernia (Chronic) GERD (gastroesophageal reflux disease) (Chronic) SBO (small bowel obstruction) (Acute) Colovaginal fistula Depression Hypercholesterolemia Hypertension Incisional hernia Infertility, female Intestinal anastomotic leak Migraine Ovarian cyst, left Small bowel obstruction due to adhesions Surgical History Abdominal hysterectomy Appendectomy Arthroplasty of knee Colectomy Colostomy Oophrectomy, Both Reduction mammoplasty Right subclavian vein triple lumen central line placement (01/23/16) Rotator Cuff Repair Sigmoidoscopy (05/28/17) Tonsillectomy and adenoidectomy colostomy takedown and MIKA (11/14/15) colostomy takedown and MIKA (07/22/17) colovaginal fistula and abd wall hernia (01/23/16) hernia abdominal wall repair (01/23/16) transforaminal nerve root block (04/27/14) Family History Mother Tuberculosis Hyperlipidemia Breast cancer Father Heart disease Other Diabetes Ovarian cancer Social History Smoking/Tobacco Use Status: Never Alcohol Intake: current Alcohol Intake frequency: a few times a week Alcohol type: wine Drug use: Never Substance use type: does not use Do you feel safe at home: Yes Do you feel safe in your relationship?: Yes Female Reproductive History Menstrual Menopause type: surgical Exam Const General: cooperative, healthy appearing, comfortable, no acute distress and well developed Nutritional Appearance: average body habitus and well nourished Orientation: alert and awake HENKY Head: normal to inspection Mouth: mucous membranes dry (appears slightly dry) Resp Effort & Inspection: normal respiratory effort, able to speak in complete sentences and no respiratory distress Auscultation: clear to auscultation bilaterally, no rales, no rhonchi and no wheezes Cardio Rate: regular rate Rhythm: regular rhythm Heart Sounds: S1 normal and S2 normal GI Inspection: distended and no large pannus Palpation: soft, no hepatosplenomegaly and guarding (periumbilical) in the LLQ Percussion: dullness to percussion Auscultation: hypoactive bowel sounds Back/Spine/Pelvis Back: no CVA tenderness Skin General skin exam: no rashes or lesions noted Trauma: no lacerations or abrasions Neuro General: alert and awake Cognition: normal cognition Speech: speech normal Gait: normal gait Extrem General: no pedal edema and no calf tenderness Psych Appearance: grossly normal and well kempt Mental Status: mental status grossly normal Speech and Movement: speech and movement normal Course Vital Signs Temperature 36.6 C 11/06/18 16:58 Pulse 98 H 11/06/18 16:58 Respiratory Rate 20 11/06/18 16:58 Blood Pressure 156/84 H 11/06/18 16:58 Pulse Oximetry 98 11/06/18 16:58 Temperature 36.6 C 11/06/18 16:58 Temperature Source Skin 11/06/18 16:58 Pulse 98 H 11/06/18 16:58 Respiratory Rate 20 11/06/18 16:58 Blood Pressure 156/84 H 11/06/18 16:58 Blood Pressure Position Supine 11/06/18 16:58 Pulse Oximetry 98 11/06/18 16:58 Oxygen Delivery Method Room Air 11/06/18 16:58 Oxygen Flow Rate 0 11/06/18 16:58 Pain Level 8 11/06/18 16:58
[2018-11-06] MEDS: Ondansetron 4 MG/2 ML VIAL IVP (17:42)
[2018-11-06 17:44] LABS: Bilirubin Negative (Negative); Blood Small (Negative); Clarity Clear; Glucose Negative (Negative); Ketones Negative (Negative); Leukocyte Esterase Negative (Negative); Nitrite Negative (Negative); Specific Gravity <= 1.005 (1.005-1.025); Urobilinogen 0.2 EU/dL (Up TO 0.2); pH 5.5 (5-8)
[2018-11-06 17:51] LABS: Lactate-non-spesis 1.4 mmol/l (0.6-1.4)
[2018-11-06 18:05] LABS: ALT 21 U/L (12-78); AST 17 U/L (15-37); Albumin 3.8 g/dL (3.4-5.0); Alkaline Phosphatase 77 U/L (46-116); Anion Gap 10.5 mmol/L (3-11); BUN 21 mg/dL (7-18); Bilirubin, Total 0.1 mg/dL (0.2-1.0); CO2 29.5 mmol/L (21.0-32.0); CREATININE 0.81 mg/dL (0.55-1.02); Chloride 99 mmol/L (98-107); Glucose 107 mg/dL (70-100); Lipase 172 U/L (73-393); Potassium 3.8 mmol/L (3.5-5.1); Sodium 139 mmol/L (136-145); Total Protein 7.1 g/dL (6.4-8.2); Troponin I < 0.02 ng/mL (0.00-0.06)
[2018-11-06 18:09] LABS: Bacteria Few HPF (Negative); Epithelial Cells Few HPF (Negative); RBC 0-2 (0-2)
[2018-11-06 18:10] LABS: C & S Indicated? Yes; Casts Negative LPF (Negative); Crystals Negative HPF (Negative); Mucus Negative (Negative)
--- NOTE | 2018-11-06 18:15 | DI.RAD_ITS ---
SYMPTOM/DIAGNOSIS: ? OBSTRUCTION, ABD PAIN FLAT AND UPRIGHT ABDOMEN: Comparison is made with 08/16/18. The visualized lung bases are clear. No evidence of bowel obstruction, organomegaly or pneumoperitoneum is seen. The bones appear intact with mild degenerative changes in the lumbar spine. IMPRESSION: No evidence of an acute abdomen.
[2018-11-06 18:16] LABS: Abs Immature Grans 0.02 k/cumm (0.0-0.09); Absolute Basophil Count 0.03 k/cumm (0.0-0.2); Absolute Monocyte Count 0.47 k/cumm (0.11-0.7); Absolute Neutrophil Count 7.68 k/cumm (1.2-6.7); Basophils % 0.3; HCT 38.2 % (36.0-46.0); HGB 12.7 g/dL (12.0-15.5); Immature Grans % 0.2; Lymphocytes % 13.7; Mean Corp. HGB Concentration 33.2 g/dL (32.0-36.0); Mean Corpuscular Hemoglobin 31.7 pg (27.0-33.0); Mean Corpuscular Volume 95.3 fL (80-95); Monocytes % 4.9; Neutrophils % 80.9; Platelet Count 385 x1000/uL (130-400); RBC 4.01 m/cumm (4.00-5.20); RBC Distribution Width 13.1 % (11.7-14.6)
[2018-11-06] MEDS: HYDROmorphone 2 MG/ML VIAL 0.5 MG IVP (18:40)
[2018-11-06] MEDS: Lactated Ringers 1,000 ML 125 ML IV (18:49)
--- NOTE | 2018-11-06 19:00 | DI.VRAD_ITS ---
EXAM: XR Abdomen, 2 Views EXAM DATE/TIME: 11/06/2018 6:16 PM CLINICAL HISTORY: 68 years old, female; Pain and signs and symptoms; Other: Obstruction? ; Abdominal pain TECHNIQUE: Imaging protocol: Frontal view of the abdomen/pelvis with upright view of the abdomen. COMPARISON: CR XR ABD FLAT UPRIGHT PA CHEST 08/16/2018 12:31 PM FINDINGS: Gastrointestinal tract: This a normal bowel gas pattern present. Intraperitoneal space: Normal. No free air. Bones/joints: Degenerative changes of lower lumbar spine without evidence of acute osseous abnormality. IMPRESSION: Currently normal bowel gas pattern. Dictated and Authenticated by: Benji Phillips MD. Ordering:EVELYN Green MD
[2018-11-06] MEDS: Ondansetron 4 MG/2 ML VIAL (20:19)
--- NOTE | 2018-11-06 21:15 | HPE_ITS ---
Date of service: 11/06/18 Time of Service: 21:13 Assessment and Plan (1) SBO (small bowel obstruction): Current visit: No Status: Acute 68 y/o female with symptoms suggestive of early, recurrent SBO. Labs and imaging reviewed and essentially unremarkable on this admit. Her previous episodes have all resolved with conservative management per records. Hold off on NG. Encouraged ambulation. Bowel rest. May have ice chips. Hold off on additional imaging unless she is not improving. Follow-up in am. Discussed plans with patient. She is agreeable. History of Present Illness Chief Complaint: Abdominal pain Narrative: 68 y/o female who presented to the ED this afternoon with crampy abdominal pain which began around 2 pm. The crampiness worsened and was associated with nausea but no emesis. (+) chills associated with the pain but no fever. She has an extensive history of prior abdominal surgeries and small bowel obstructions. She notes that this is how her bowel obstructions usually present. She was passing flatus and having some bowel movements this afternoon. She notes that her abdomen has been making whooshing sounds. She had unremarkable labs and AXR in the ED. She was last hospitalized for this in July and her symptoms resolved with conservative management. Her last surgery was in July 2017. Her first surgery was as a child for a ruptured appendicitis. In the interim, she has had numerous surgeries including a total hysterectomy, ventral hernia repair, excision of cystic mass, colon resection and colostomy with subsequent reversal, diverting colostomy for colovaginal fistula with subsequent reversal, and ventral hernia repair. She has a known recurrent ventral hernia. Review of Systems Review of Systems All systems reviewed & are unremarkable except as noted in HPI and below Constitutional Reports chills (with cramping) and Denies fever(s) Cardiovascular Denies chest pain, Denies rapid heart rate and Denies dyspnea Respiratory Denies cough and Denies dyspnea Gastrointestinal Reports cramping, Reports nausea and Denies vomiting Genitourinary Denies hematuria and Denies dysuria [facility] Medical History Ventral hernia (Chronic) GERD (gastroesophageal reflux disease) (Chronic) SBO (small bowel obstruction) (Acute) Colovaginal fistula Depression Hypercholesterolemia Hypertension Incisional hernia Infertility, female Intestinal anastomotic leak Migraine Ovarian cyst, left Small bowel obstruction due to adhesions Surgical History Abdominal hysterectomy Appendectomy Arthroplasty of knee Colectomy Colostomy Oophrectomy, Both Reduction mammoplasty Right subclavian vein triple lumen central line placement (01/23/16) Rotator Cuff Repair Sigmoidoscopy (05/28/17) Tonsillectomy and adenoidectomy colostomy takedown and MIKA (11/14/15) colostomy takedown and MIKA (07/22/17) colovaginal fistula and abd wall hernia (01/23/16) hernia abdominal wall repair (01/23/16) transforaminal nerve root block (04/27/14) Family History Mother Tuberculosis Hyperlipidemia Breast cancer Father Heart disease Other Diabetes Ovarian cancer Social History Smoking/Tobacco Use Status: Never Alcohol Intake: current Alcohol Intake frequency: a few times a week Alcohol type: wine Drug use: Never Substance use type: does not use Do you feel safe at home: Yes Do you feel safe in your relationship?: Yes Female Reproductive History Menstrual Menopause type: surgical Meds Home Medications Medication Instructions Recorded Confirmed Type aspirin [Aspirin Low-Strength] 81 mg PO DAILY #100 tab 11/10/12 11/06/18 History melatonin-pyridoxine (vit B6) 2 tab PO HS PRN 05/21/17 11/06/18 History acetaminophen [Tylenol] 650 mg PO Q6H PRN PRN tab 07/25/17 11/06/18 Rx ranitidine HCl 150 mg PO BID #180 tab-cap 12/16/17 11/06/18 Rx celecoxib 100 mg capsule 100 mg PO BID PRN #90 cap 02/17/18 08/28/18 Rx estradiol 0.5 mg tablet 0.5 mg PO DAILY #90 tab 02/23/18 11/06/18 Rx losartan 50 mg-hydrochlorothiazide 1 tab PO DAILY #90 tab 07/14/18 11/06/18 Rx 12.5 mg tablet dicyclomine 10 mg capsule 20 mg PO TID #90 tab-cap 10/30/18 11/06/18 Rx Allergies Allergy/AdvReac Type Severity Reaction Status Date / Time sumatriptan Allergy Severe Anaphylaxsi Verified 11/06/18 17:02 s ciprofloxacin Allergy Unknown Skin Rash Verified 11/06/18 17:02 morphine AdvReac Severe Nausea Verified 11/06/18 17:02 doxycycline monohydrate AdvReac Intermediate vomiting Verified 11/06/18 17:02 [From Vibramycin] Penicillins AdvReac Intermediate Nausea Verified 11/06/18 17:02 tramadol AdvReac Intermediate dizzyness, Verified 11/06/18 17:02 faintness Exam Const General: cooperative, comfortable and no acute distress Nutritional Appearance: average body habitus Orientation: alert and oriented x3 HENMT Head: normocephalic and atraumatic Eyes Sclera: sclerae normal Neck Neck: trachea midline and no JVD Resp Effort & Inspection: normal respiratory effort and able to speak in complete sentences Auscultation: clear to auscultation bilaterally Cardio Jugular venous pressure: no JVD Rate: regular rate Rhythm: regular rhythm GI Inspection: non-distended and scar (multiple abdominal scars from previous surgeries) Palpation: soft, not firm, no guarding and hernia (soft, reducible midline ventral hernia) Auscultation: normal bowel sounds Skin General skin exam: no rashes or lesions noted and no jaundice Neuro General: alert and oriented x3 Speech: speech normal Results Imaging Abdominal x-ray: report reviewed and image reviewed Imaging Studies: Patient Name: Del CANNON #: [id number]: ER Ordering Provider: : [facility] Primary Care Provider: Kristen Cline M.D.Date of Exam: 11/06/18Sex: F : 1Age: 68 Exam(s) EXAM: XR Abdomen, 2 Views EXAM DATE/TIME: 11/06/2018 6:16 PM CLINICAL HISTORY: 68 years old, female; Pain and signs and symptoms; Other: Obstruction? ; Abdominal pain TECHNIQUE: Imaging protocol: Frontal view of the abdomen/pelvis with upright view of the abdomen. COMPARISON: CR XR ABD FLAT UPRIGHT PA CHEST 08/16/2018 12:31 PM FINDINGS: Gastrointestinal tract: This a normal bowel gas pattern present. Intraperitoneal space: Normal. No free air. Bones/joints: Degenerative changes of lower lumbar spine without evidence of acute osseous abnormality. IMPRESSION: Currently normal bowel gas pattern. Dictated and Authenticated by: Benji Phillips MD. Ordering:EVELYN Green MD Ordered By: CC: Dictated By: Reports vrad 11/06/18 1816 11/06/18 1900 Transcribed By: Tereza Monsivais This is privileged, confidential information intended only for the provider [facility]. Any use or distribution by any person other than this provider is strictly prohibited. If you receive this report in error, please notify us immediately at [phone] and return the original report to us at the address above. Thank- you. Labs : 11/06/18 17:45 11/06/18 17:12 Laboratory Results - last 24 hr 11/06/18 11/06/18 11/06/18 17:12 17:35 17:45 WBC 9.50 RBC 4.01 Hgb 12.7 Hct 38.2 MCV 95.3 H MCH 31.7 MCHC 33.2 RDW 13.1 Plt Count 385 MPV 11.0 Immature Gran % 0.2 Neutrophils % 80.9 Lymphocytes % 13.7 Monocytes % 4.9 Eosinophils % 0.0 Basophils % 0.3 Absolute Neutrophils 7.68 H Absolute Lymphocytes 1.30 Absolute Monocytes 0.47 Absolute Eosinophils 0.00 Absolute Basophils 0.03 Sodium 139 Potassium 3.8 Chloride 99 Carbon Dioxide 29.5 Anion Gap 10.5 BUN 21 H Creatinine 0.81 Estimated GFR/1.73 m2 >= 60.00 Glucose 107 H Lactate Calcium 10.0 Magnesium 2.0 Total Bilirubin 0.1 L AST 17 ALT 21 Alkaline Phosphatase 77 Troponin I < 0.02 Total Protein 7.1 Albumin 3.8 Lipase 172 Urine Color Straw Urine Clarity Clear Urine pH 5.5 Ur Specific [place] <= 1.005 Urine Protein Negative Urine Ketones Negative Urine Blood Small H Urine Nitrite Negative Urine Bilirubin Negative Urine Urobilinogen 0.2 Ur Leukocyte Esterase Negative Urine RBC 0-2 Urine WBC 3-5 Ur Epithelial Cells Few Urine Crystals Negative Urine Bacteria Few Urine Casts Negative Urine Mucus Negative Urine Other Ur Culture Indicated? Yes Urine Glucose Negative 11/06/18 17:45 WBC RBC Hgb Hct MCV MCH MCHC RDW Plt Count MPV Immature Gran % Neutrophils % Lymphocytes % Monocytes % Eosinophils % Basophils % Absolute Neutrophils Absolute Lymphocytes Absolute Monocytes Absolute Eosinophils Absolute Basophils Sodium Potassium Chloride Carbon Dioxide Anion Gap BUN Creatinine Estimated GFR/1.73 m2 Glucose Lactate 1.4 Calcium Magnesium Total Bilirubin AST ALT Alkaline Phosphatase Troponin I Total Protein Albumin Lipase Urine Color Urine Clarity Urine pH Ur Specific [place] Urine Protein Urine Ketones Urine Blood Urine Nitrite Urine Bilirubin Urine Urobilinogen Ur Leukocyte Esterase Urine RBC Urine WBC Ur Epithelial Cells Urine Crystals Urine Bacteria Urine Casts Urine Mucus Urine Other Ur Culture Indicated? Urine Glucose Last Vital Signs Temp 36.7 C 11/06/18 20:33 Pulse 73 11/06/18 20:38 Resp 16 11/06/18 20:38 BP 147/83 H 11/06/18 20:38 Pulse Ox 96 11/06/18 20:38
[2018-11-06] MEDS: Ketorolac 15 MG/ML VIAL IVP (22:24)
[2018-11-06] MEDS: Normal Saline Flush 10 ML SYR IVP (22:25)
[2018-11-07] MEDS: Lactated Ringers 1,000 ML 125 ML IV ×2 (01:15→09:05)
[2018-11-07 04:38] VITALS: BP 128/80; PULSE 74; RESP 16; TEMP 36.2; O2SAT 98
[2018-11-07 07:10] VITALS: BP 145/77; PULSE 68; RESP 18; TEMP 36.4; O2SAT 98
--- NOTE | 2018-11-07 09:33 | PGE_ITS ---
Date of Service Date of service: 11/07/18 Time of Service: 09:31 Assessment and Plan (1) SBO (small bowel obstruction): Current visit: No Status: Acute 68 y/o female with symptoms suggestive of early, recurrent SBO. which have now resolved. Resume oral diet as tolerated. If able to tolerate soft diet, then plan on d/c home after lunch. Discussed recurrent SBO with patient. Bautista mmend decreasing diet to liquids at home if she feels onset of recurrent symptoms and return to ED if worsening or not improving. Patient agreeable with discharge plans. Subjective Interval history since last seen: Patient feels well this morning. Denies any abdominal pain or cramping. Denies nausea. Passing flatus this am. Exam Const General: cooperative, comfortable and no acute distress Nutritional Appearance: average body habitus Orientation: alert and oriented x3 HENMT Head: normocephalic and atraumatic Resp Effort & Inspection: normal respiratory effort and able to speak in complete sentences GI Inspection: non-distended and scar (multiple abdominal scars) Palpation: soft, not firm, no guarding and not rigid Auscultation: normal bowel sounds Skin General skin exam: no rashes or lesions noted and no jaundice Neuro General: alert and oriented x3 Speech: speech normal Objective Objective Clinical Data: Abnormal lab results 11/06/18 11/06/18 11/06/18 Range/Units 17:12 17:35 17:45 MCV 95.3 H (80-95) fL Absolute Neutrophils 7.68 H (1.2-6.7) k/cumm BUN 21 H (7-18) mg/dL Glucose 107 H (70-100) mg/dL Total Bilirubin 0.1 L (0.2-1.0) mg/dL Urine Blood Small H (Negative) Vital Signs Temperature 36.4 C L 11/07/18 07:10 Temperature Source Tympanic 11/07/18 07:10 Pulse 68 11/07/18 07:10 Pulse Rhythm Regular 11/07/18 07:21 Respiratory Rate 18 11/07/18 07:10 Respiratory Effort Non-Labored 11/07/18 07:21 Respiratory Depth Normal 11/07/18 07:21 Respiratory Pattern Normal 11/07/18 07:21 Blood Pressure 145/77 H 11/07/18 07:10 Blood Pressure Mean 82 11/06/18 18:40 Blood Pressure Position Supine 11/06/18 16:58 Pulse Oximetry 98 11/07/18 07:10 Oxygen Delivery Method Room Air 11/07/18 07:10 Oxygen Flow Rate 0 11/07/18 07:10 Pain Level 0 11/07/18 07:10 Intake & Output 11/06/18 11/06/18 11/07/18 11:59 23:59 11:59 Intake Total 1010 / 1010 1954.167 / 1954.167 Output Total 400 / 400 Balance 1010 / 1010 1554.167 / 1554.167 Weight 58.06 kg Intake: IV 1010 / 1010 1704.167 / 1704.167 Oral 250 / 250 Output: Urine 400 / 400 Other: Urine Color Yellow Urine Appearance Clear Clear Urine Odor Normal Comment pt voids independently in the bathroom. Voiding Methods Toilet Laboratory Results WBC 9.50 k/cumm (4.4-10.8) 11/06/18 17:45 RBC 4.01 m/cumm (4.00-5.20) 11/06/18 17:45 Hgb 12.7 g/dL (12.0-15.5) 11/06/18 17:45 Hct 38.2 % (36.0-46.0) 11/06/18 17:45 MCV 95.3 fL (80-95) H 11/06/18 17:45 MCH 31.7 pg (27.0-33.0) 11/06/18 17:45 MCHC 33.2 g/dL (32.0-36.0) 11/06/18 17:45 RDW 13.1 % (11.7-14.6) 11/06/18 17:45 Plt Count 385 x1000/uL (130-400) 11/06/18 17:45 MPV 11.0 fL (8.0-11.0) 11/06/18 17:45 Immature Gran % 0.2 11/06/18 17:45 Neutrophils % 80.9 11/06/18 17:45 Lymphocytes % 13.7 11/06/18 17:45 Monocytes % 4.9 11/06/18 17:45 Eosinophils % 0.0 11/06/18 17:45 Basophils % 0.3 11/06/18 17:45 Absolute Neutrophils 7.68 k/cumm (1.2-6.7) H 11/06/18 17:45 Absolute Lymphocytes 1.30 k/cumm (1.2-3.4) 11/06/18 17:45 Absolute Monocytes 0.47 k/cumm (0.11-0.7) 11/06/18 17:45 Absolute Eosinophils 0.00 k/cumm (0.0-0.7) 11/06/18 17:45 Absolute Basophils 0.03 k/cumm (0.0-0.2) 11/06/18 17:45 Sodium 139 mmol/L (136-145) 11/06/18 17:12 Potassium 3.8 mmol/L (3.5-5.1) 11/06/18 17:12 Chloride 99 mmol/L (98-107) 11/06/18 17:12 Carbon Dioxide 29.5 mmol/L (21.0-32.0) 11/06/18 17:12 Anion Gap 10.5 mmol/L (3-11) 11/06/18 17:12 BUN 21 mg/dL (7-18) H 11/06/18 17:12 Creatinine 0.81 mg/dL (0.55-1.02) 11/06/18 17:12 Estimated GFR/1.73 m2 >= 60.00 (mL/min/1.73m2) 11/06/18 17:12 Glucose 107 mg/dL (70-100) H 11/06/18 17:12 Lactate 1.4 mmol/l (0.6-1.4) 11/06/18 17:45 Calcium 10.0 mg/dL (8.5-10.1) 11/06/18 17:12 Magnesium 2.0 mg/dL (1.8-2.4) 11/06/18 17:12 Total Bilirubin 0.1 mg/dL (0.2-1.0) L 11/06/18 17:12 AST 17 U/L (15-37) 11/06/18 17:12 ALT 21 U/L (12-78) 11/06/18 17:12 Alkaline Phosphatase 77 U/L (46-116) 11/06/18 17:12 Troponin I < 0.02 ng/mL (0.00-0.06) 11/06/18 17:12 Total Protein 7.1 g/dL (6.4-8.2) 11/06/18 17:12 Albumin 3.8 g/dL (3.4-5.0) 11/06/18 17:12 Lipase 172 U/L (73-393) 11/06/18 17:12 Urine Color Straw (Yellow) 11/06/18 17:35 Urine Clarity Clear 11/06/18 17:35 Urine pH 5.5 (5-8) 11/06/18 17:35 Ur Specific [place] <= 1.005 (1.005-1.025) 11/06/18 17:35 Urine Protein Negative mg/dL (Negative) 11/06/18 17:35 Urine Ketones Negative mg/dL (Negative) 11/06/18 17:35 Urine Blood Small (Negative) H 11/06/18 17:35 Urine Nitrite Negative (Negative) 11/06/18 17:35 Urine Bilirubin Negative (Negative) 11/06/18 17:35 Urine Urobilinogen 0.2 EU/dL (Up TO 0.2) 11/06/18 17:35 Ur Leukocyte Esterase Negative (Negative) 11/06/18 17:35 Urine RBC 0-2 (0-2) 11/06/18 17:35 Urine WBC 3-5 HPF (0-5) 11/06/18 17:35 Ur Epithelial Cells Few HPF (Negative) 11/06/18 17:35 Urine Crystals Negative HPF (Negative) 11/06/18 17:35 Urine Bacteria Few HPF (Negative) 11/06/18 17:35 Urine Casts Negative LPF (Negative) 11/06/18 17:35 Urine Mucus Negative (Negative) 11/06/18 17:35 Urine Other (Negative) 11/06/18 17:35 Ur Culture Indicated? Yes 11/06/18 17:35 Urine Glucose Negative mg/dL (Negative) 11/06/18 17:35
--- NOTE | 2018-11-07 11:04 | PHARADMIT ---
Admission Pharmacy Clinical Review ABDOMINAL PAIN, CONCERN FOR SBO Code Status Full Code Current Weight 58.06 kg Renally Cleared and Narrow Therapeutic Index Meds CRCL ~53ML/MIN QTc Value / Action Taken 422 BP Control, Fever 145/77 AFEBRILE Electrolytes reviewed OK DVT Prophylaxis NO, Opiate Usage / Scheduled Bowel Regimen Ordered NO/NO Plt/SCr for Heparin / Enoxaparin 385/0.81 INR for Warfarin NA H/H stable, WBC/Bands 12.7/38.2 WBC 9.5 Antibiotic appropriateness NA Cultures and Sensitivities NA Surgical ABX d/c within 24 hr NA DM control / Insulin Dosing NA Heart Failure (Check EF%) (HILARY's, B-Block, Diuretics) IV to PO Switch Home Meds Reviewed Home Meds Not Ordered aspirin [Aspirin Low-Strength] 81 mg PO DAILY #100 tab melatonin-pyridoxine (vit B6) 2 tab PO HS PRN acetaminophen [Tylenol] 650 mg PO Q6H PRN PRN tab celecoxib 100 mg capsule 100 mg PO BID PRN #90 cap estradiol 0.5 mg tablet 0.5 mg PO DAILY #90 tab dicyclomine 10 mg capsule 20 mg PO TID #90 tab-cap Comments
[2018-11-07 11:15] VITALS: BP 127/73; PULSE 74; RESP 18; TEMP 36.7; O2SAT 98
--- NOTE | 2018-11-07 12:58 | W.PM.DS.N ---
Date of service: 11/07/18 Time of Service: 12:59 DS: Diagnosis Discharge Diagnosis (1) SBO (small bowel obstruction): Status: Acute Discharge Plan Disposition Patient Disposition: HOME Condition: Good Discharge Details Reason For Visit: ABDOMINAL PAIN,CONCERN FOR SBO Admit Date/Time: 11/06/18 19:11 Admit Provider: Bora Schulte Attending Provider: Bora Schulte Primary Care Provider: Kristen Cline Hospital Course Hospital Course: 68 y/o female admitted for abdominal cramping and nausea concerning for early recurrent SBO. Abdominal symptoms resolved with IVF hydration and bowel rest overnight. AXR on admission were unremarkable. Urine culture clean catch sent from ED on admission grew >100,000 E. coli. Patient denies dysuria or hematuria but notes that her urine has been smelly. She notes that she is not allergic to Bactrim and will be discharged with a 3 day prescription. She is tolerating a soft diet without any nausea or abdominal pain. She agrees with dischartge plans. Home Meds and New Rx's Prescriptions: New sulfamethoxazole-trimethoprim 800-160 mg tablet 1 tab PO Q12H Qty: 6 RF: 0 Continued celecoxib 100 mg capsule 100 mg PO BID PRN (Reason: back pain) Qty: 90 RF: 0 estradiol 0.5 mg tablet 0.5 mg PO DAILY Qty: 90 RF: 3 aspirin [Aspirin Low-Strength] 81 MG tablet,chewable 81 mg PO DAILY Qty: 100 RF: 11 ranitidine HCl 150 MG capsule 150 mg PO BID Qty: 180 RF: 3 losartan-hydrochlorothiazide 50-12.5 mg tablet 1 tab PO DAILY Qty: 90 RF: 3 dicyclomine 10 mg capsule 20 mg PO TID Qty: 90 RF: 3 melatonin-pyridoxine (vit B6) 1 TAB tablet 2 tab PO HS PRNRF: 0 acetaminophen [Tylenol] 325 MG tablet 650 mg PO Q6H PRN PRNRF: 0 Discharge Instructions Referrals: Kristen Cline MD [Primary Care Provider] - (Hospital follow-up/ UTI. 1-2 weeks.) Activity:: Activity as Tolerated Equipment/Supplies:: No Equipment Needed Diet:: Low residue Discharge Orders Discharge Orders: Discharge Order (Routine); Ordered 11/07/18 Ordered By: Quynhanh H Schulte Exam Const General: cooperative, comfortable and no acute distress Nutritional Appearance: average body habitus Orientation: alert and oriented x3 HENMT Head: normocephalic and atraumatic Eyes Sclera: sclerae normal Resp Effort & Inspection: normal respiratory effort and able to speak in complete sentences Cardio Jugular venous pressure: no JVD GI Inspection: non-distended and scar (multiple abdominal scars) Palpation: soft, not firm, no guarding, hernia (soft, reducible midline ventral hernia) and not rigid Skin General skin exam: no rashes or lesions noted and no jaundice Neuro General: alert and oriented x3 Speech: speech normal DS: Data Vitals/I&O Vitals and I&O: Vital Signs Temperature 36.7 C 11/07/18 11:15 Temperature Source Tympanic 11/07/18 11:15 Pulse 74 11/07/18 11:15 Pulse Rhythm Regular 11/07/18 07:21 Respiratory Rate 18 11/07/18 11:15 Respiratory Effort Non-Labored 11/07/18 07:21 Respiratory Depth Normal 11/07/18 07:21 Respiratory Pattern Normal 11/07/18 07:21 Blood Pressure 127/73 11/07/18 11:15 Blood Pressure Mean 82 11/06/18 18:40 Blood Pressure Position Supine 11/06/18 16:58 Pulse Oximetry 98 11/07/18 11:15 Oxygen Delivery Method Room Air 11/07/18 11:15 Oxygen Flow Rate 0 11/07/18 11:15 Pain Level 0 11/07/18 11:15 Intake & Output 11/06/18 11/07/18 11/07/18 23:59 11:59 23:59 Intake Total 1010 / 1010 5.417 / 2515.417 480 / 2515.417 Output Total 500 / 500 Balance 1010 / 1010 1535.417 / 2015.417 480 / 2014.417 Weight 58.06 kg Intake: IV 1010 / 1010 1785.417 / 1785.417 Oral 250 / 730 480 / 730 Output: Urine 500 / 500 Other: Urine Color Yellow Urine Appearance Clear Clear Urine Odor Strong Comment pt voids independently in the bathroom. Voiding Methods Toilet Labs on day of discharge: Labs from last 24 hours 11/06/18 11/06/18 11/06/18 17:45 17:45 17:35 WBC 9.50 RBC 4.01 Hgb 12.7 Hct 38.2 MCV 95.3 H MCH 31.7 MCHC 33.2 RDW 13.1 Plt Count 385 MPV 11.0 Immature Gran % 0.2 Neutrophils % 80.9 Lymphocytes % 13.7 Monocytes % 4.9 Eosinophils % 0.0 Basophils % 0.3 Absolute Neutrophils 7.68 H Absolute Lymphocytes 1.30 Absolute Monocytes 0.47 Absolute Eosinophils 0.00 Absolute Basophils 0.03 Sodium Potassium Chloride Carbon Dioxide Anion Gap BUN Creatinine Estimated GFR/1.73 m2 Glucose Lactate 1.4 Calcium Magnesium Total Bilirubin AST ALT Alkaline Phosphatase Troponin I Total Protein Albumin Lipase Urine Color Straw Urine Clarity Clear Urine pH 5.5 Ur Specific [place] <= 1.005 Urine Protein Negative Urine Ketones Negative Urine Blood Small H Urine Nitrite Negative Urine Bilirubin Negative Urine Urobilinogen 0.2 Ur Leukocyte Esterase Negative Urine RBC 0-2 Urine WBC 3-5 Ur Epithelial Cells Few Urine Crystals Negative Urine Bacteria Few Urine Casts Negative Urine Mucus Negative Urine Other Ur Culture Indicated? Yes Urine Glucose Negative 11/06/18 17:12 WBC RBC Hgb Hct MCV MCH MCHC RDW Plt Count MPV Immature Gran % Neutrophils % Lymphocytes % Monocytes % Eosinophils % Basophils % Absolute Neutrophils Absolute Lymphocytes Absolute Monocytes Absolute Eosinophils Absolute Basophils Sodium 139 Potassium 3.8 Chloride 99 Carbon Dioxide 29.5 Anion Gap 10.5 BUN 21 H Creatinine 0.81 Estimated GFR/1.73 m2 >= 60.00 Glucose 107 H Lactate Calcium 10.0 Magnesium 2.0 Total Bilirubin 0.1 L AST 17 ALT 21 Alkaline Phosphatase 77 Troponin I < 0.02 Total Protein 7.1 Albumin 3.8 Lipase 172 Urine Color Urine Clarity Urine pH Ur Specific [place] Urine Protein Urine Ketones Urine Blood Urine Nitrite Urine Bilirubin Urine Urobilinogen Ur Leukocyte Esterase Urine RBC Urine WBC Ur Epithelial Cells Urine Crystals Urine Bacteria Urine Casts Urine Mucus Urine Other Ur Culture Indicated? Urine Glucose Preliminary micro results at discharge 11/06/18 17:35 Urine Culture - Preliminary Urine - Clean Catch Escherichia coli [facility] Medical History Ventral hernia (Chronic) GERD (gastroesophageal reflux disease) (Chronic) SBO (small bowel obstruction) (Acute) Colovaginal fistula Depression Hypercholesterolemia Hypertension Incisional hernia Infertility, female Intestinal anastomotic leak Migraine Ovarian cyst, left Small bowel obstruction due to adhesions Surgical History Abdominal hysterectomy Appendectomy Arthroplasty of knee Colectomy Colostomy Oophrectomy, Both Reduction mammoplasty Right subclavian vein triple lumen central line placement (01/23/16) Rotator Cuff Repair Sigmoidoscopy (05/28/17) Tonsillectomy and adenoidectomy colostomy takedown and MIKA (11/14/15) colostomy takedown and MIKA (07/22/17) colovaginal fistula and abd wall hernia (01/23/16) hernia abdominal wall repair (01/23/16) transforaminal nerve root block (04/27/14) Family History Mother Tuberculosis Hyperlipidemia Breast cancer Father Heart disease Other Diabetes Ovarian cancer Social History Smoking/Tobacco Use Status: Never Alcohol Intake: current Alcohol Intake frequency: a few times a week Alcohol type: wine Drug use: Never Substance use type: does not use Do you feel safe at home: Yes Do you feel safe in your relationship?: Yes Female Reproductive History Menstrual Menopause type: surgical
--- NOTE | 2018-11-07 13:15 | PDOC.CMDIS ---
LACE Index Scoring Tool - Questions: Length of Stay (in days): 1 Acuity (Admit via E.D.?): Yes E.D. Visits: 2 - Answers: Total Score: 6 Risk of Readmission: Low Risk Care Management Discharge Reason for Hospitalization: Abdominal pain, concern for SBO Discharge Plan: Dawna will return home today. No services needed. Shop Director, Oz, will transport by car. Patient/Family Education Needs: Discharge instructions
--- NOTE | 2018-11-07 13:19 | CMDISCH_ITS ---
LACE Index Scoring Tool - Questions: Length of Stay (in days): 1 Acuity (Admit via E.D.?): Yes E.D. Visits: 2 - Answers: Total Score: 6 Risk of Readmission: Low Risk Care Management Discharge Reason for Hospitalization: Abdominal pain, concern for SBO Discharge Plan: Dawna will return home today. No services needed. Model Maker Plaster, [employer], will transport by car. Patient/Family Education Needs: Discharge instructions
== END 2018-11-07 13:55 | disposition home or self-care (01) ==
LOC: ER 19:21 → MS 20:21
PROVIDERS: Admitting Provider Surgery; Emergency Provider Physician Assistant; PCP Internal Medicine; Visit Provider Surgery
DX: K56.50 Intestinal adhesions [bands], unspecified as to partial versus complete obstruction (principal); R10.13 Epigastric pain; R11.0 Nausea; R68.83 Chills (without fever); N39.0 Urinary tract infection, site not specified; B96.20 Unspecified Escherichia coli [E. coli] as the cause of diseases classified elsewhere; I10 Essential (primary) hypertension; K43.2 Incisional hernia without obstruction or gangrene; Z98.890 Other specified postprocedural states
CPT/HCPCS: 36415; 80053; 83690; 87077; 96361; 96374; 96375; 96376; 99217; 99219; 99222; 99232; 99285; 74019; 81003; 81015; 83605; 83735; 84484; 85025; 87086; 87186; 99284; G0378; J1885; J2405

== ENCOUNTER 2018-11-10 16:51 | Outpatient (REF) | payer OTHER, SELFPAY | END 2018-11-10 17:11 | LOC: LBO 16:51 | PROVIDERS: PCP Internal Medicine; Visit Provider Internal Medicine | DX: R82.71 Bacteriuria (principal) | CPT/HCPCS: 87077; 87086; 87186 ==

== ENCOUNTER 2018-12-09 01:41 | Outpatient (CLI) | payer OTHER, SELFPAY ==
[2018-12-09 11:09] LABS: Calculated LDL 134 mg/dL; Cholesterol 228 mg/dL (50-200); HDL Cholesterol 60 mg/dL (40-60); Triglyceride 174 mg/dL (30-150)
== END 2018-12-09 02:01 ==
PROVIDERS: PCP Internal Medicine; Visit Provider Internal Medicine
DX: I10 Essential (primary) hypertension (principal)
CPT/HCPCS: 36415; 80061; 83721

== ENCOUNTER 2019-01-05 00:52 | Outpatient (CLI) | payer OTHER, SELFPAY ==
--- NOTE | 2019-01-05 13:24 | DI.RAD_ITS ---
SYMPTOMS/DIAGNOSIS: ASYMPTOMATIC MENOPAUSAL STATE, Z78.0, SCREENING FOR OSTEOPOROSIS, Z13.820 DEXA SCAN WITH SIDNEY: The SIDNEY image shows no evidence of compression fractures. Bone mineral density measurements of the lumbar spine correspond to a total T score of 2.9, in the normal range. Bone mineral density measurements of the left hip correspond to a total T score of 0.7 and a femoral neck T score of -0.1, in the normal range. Bone density measurements of the left forearm correspond to a T score of the distal third of -0.2, in the normal range. IMPRESSION: Normal bone mineral density.
== END 2019-01-05 01:12 ==
PROVIDERS: PCP Internal Medicine; Visit Provider Internal Medicine
DX: Z13.820 Encounter for screening for osteoporosis (principal); Z78.0 Asymptomatic menopausal state
CPT/HCPCS: 77080

== ENCOUNTER 2019-04-19 14:49 | Outpatient (CLI) | payer OTHER, SELFPAY | END 2019-04-19 15:09 | PROVIDERS: PCP Internal Medicine; Visit Provider Nurse Practitioner Family | DX: R30.0 Dysuria (principal) | CPT/HCPCS: 87077; 87086; 87186 ==

== ENCOUNTER 2019-08-03 03:51 | Outpatient (CLI) | payer OTHER, SELFPAY ==
[2019-08-03 10:58] LABS: Anion Gap 10.9 mmol/L (3-11); BUN 21 mg/dL (7-18); CO2 27.1 mmol/L (21.0-32.0); Calculated LDL 143 mg/dL (<100); Chloride 101 mmol/L (98-107); Cholesterol 228 mg/dL (<200); Glucose 103 mg/dL (74-106); HDL Cholesterol 58 mg/dL (40-60); Potassium 3.5 mmol/L (3.5-5.1); Sodium 139 mmol/L (136-145); Triglyceride 139 mg/dL (<150)
== END 2019-08-03 04:11 ==
PROVIDERS: PCP Internal Medicine; Visit Provider Internal Medicine
DX: I10 Essential (primary) hypertension (principal)
CPT/HCPCS: 36415; 80048; 80061

== ENCOUNTER 2019-08-10 00:15 | Outpatient (CLI) | payer OTHER, SELFPAY ==
--- NOTE | 2019-08-10 12:48 | DI.MAMMO_ITS ---
EXAM: MG MAMMO SCREENING CLINICAL HISTORY: SCREENING, Z12.39 TECHNIQUE: Bilateral full field digital CC and MLO mammographic images were obtained with 3D tomosyn thesis and utilizing computer aided detection (CAD). COMPARISON: Available for comparison. FINDINGS: Masses/Architectural Distortion: There is an asymmetric density in the upper central left breast on t he mediolateral oblique view. This appears more prominent compared to the prior examination. Microcalcifications: No suspicious pleomorphic-type are seen. Skin Thickening/Nipple Retraction: None. IMPRESSION: 1. Asymmetric density in the upper central left breast. 2. Spot compression view and left breast ultrasound are recommended for further evaluation. BI-RADS Cat 0 - Assessment Incomplete: Need additional imaging evaluation Breast Density - Category C - Heterogeneously dense The mammogram demonstrates the patient's breast tissue is dense. Dense breast tissue is very common a nd is not abnormal but dense breast tissue can make it harder to find cancer on a mammogram. Also, de nse breast tissue may increase their breast cancer risk. This information about the result of the [facility] mogram report was provided to the patient to raise their awareness. Use this report when you speak wi th the patient about their risks for breast cancer, which includes their family history. At that time , you may recommend for more screening tests (Ultrasound or MRI) as they might be useful based on the ir risk. A negative radiographic report should not delay biopsy if a dominant or clinically suspicious mass is present. Up to ten percent of cancers are not identified on mammography. A negative report may reinforce clinical impression. Adenosis and dense breasts may obscure an underlying neoplasm. False positive reports average 6 to 10%. Patient will receive a letter notifying them of these results.
== END 2019-08-10 00:35 ==
PROVIDERS: PCP Internal Medicine; Visit Provider Nurse Practitioner Family
DX: Z12.31 Encounter for screening mammogram for malignant neoplasm of breast (principal); R92.8 Other abnormal and inconclusive findings on diagnostic imaging of breast
CPT/HCPCS: 77063; 77067

== ENCOUNTER 2019-08-12 02:18 | Outpatient (CLI) | payer OTHER, SELFPAY ==
--- NOTE | 2019-08-12 14:57 | DI.MAMMO_ITS ---
EXAM: MG MAMMO SCREEN CALL BACK UNI AND US BREAST LT LIMITED CLINICAL HISTORY: F/U ABNL MAMMO, ASYMMETRIC DENSITY IN UPPER CENTRAL LT BREAST TECHNIQUE: Ultrasound left breast performed using standard protocol. COMPARISON: SCREENING [facility] MAMMO W/CAD DIGI from 04/26/2013 Screening Bilat Mammo from 11/14/2014 Screening Bilat Mammo from 05/08/2017 MG mammo screening from 07/06/2018 MG MAMMO SCREENING from 08/10/2019 FINDINGS: Additional views of the left breast: An MLO spot compression view with tomography was performed of th e superior breast for a small asymmetric density. No persistent abnormality is seen on the additiona l view performed. The findings are consistent with overlying fibroglandular tissue. Left breast ultrasound: No solid or cystic masses, hypoechoic foci, areas of abnormal shadowing, or a reas of skin thickening. There is no evidence of dilated ducts. IMPRESSION: ACR BI-RADS CATEGORY 1: Negative. Yearly screening mammography is recommended. Breast Density - Category C - Heterogeneously dense DATA REPOSITORY:
== END 2019-08-12 02:38 ==
PROVIDERS: PCP Internal Medicine; Visit Provider Nurse Practitioner Family
DX: Z12.31 Encounter for screening mammogram for malignant neoplasm of breast (principal); R92.8 Other abnormal and inconclusive findings on diagnostic imaging of breast; N64.59 Other signs and symptoms in breast
CPT/HCPCS: 76642; 77063; 77067

== ENCOUNTER 2020-04-02 14:47 | Observation (INO) | payer OTHER, SELFPAY ==
--- NOTE | 2020-04-02 14:48 | ED.GENADUL_ITS ---
Discharge Plan Disposition Patient Disposition: OTHER Condition: Serious Discharge Details Chief Complaint: Abd Prob Clinical Impression: Bowel obstruction Primary Care Provider: Kristen Cline ED Provider: Jeremy Urena Home Meds and New Rx's Prescriptions: No Action Shingrix (PF) 50 mcg/0.5 mL suspension for reconstitution 0.5 ml IM ONCE Qty: 1 RF: 1 fluticasone propionate 50 mcg/actuation spray,suspension 50 mcg NS DAILY PRN (Reason: allergy symptoms) Qty: 1 RF: 5 aspirin [Aspirin Low-Strength] 81 MG tablet,chewable 81 mg PO DAILY Qty: 100 RF: 11 losartan-hydrochlorothiazide 50-12.5 mg tablet 1 tab PO DAILY Qty: 90 RF: 3 estradiol 0.5 mg tablet 0.5 mg PO DAILY Qty: 90 RF: 3 dicyclomine 10 mg capsule 20 mg PO TID Qty: 90 RF: 3 omeprazole 20 mg capsule,delayed release(DR/EC) 20 mg PO DAILY Qty: 90 RF: 3 melatonin-pyridoxine (vit B6) 1 TAB tablet 2 tab PO HS PRNRF: 0 acetaminophen [Tylenol] 325 MG tablet 650 mg PO Q6H PRN PRNRF: 0 Medical Decision Making <KENDRA Faust - Last Filed: 04/02/20 16:18> Patient is pleasant 69 year old male presenting today with c/c of left sided abdominal pain that began yesterday. She states that last night, after eating, she had a sudden onset of severe left sided abdominal pain. Sounds that the pain is somewhat improved. She states that she has had diarrhea throughout the day, no blood in her stool. No recent abx, no recent travel. States that she has also had N/V, no hematemesis. Denies fevers/chills. PMH significant for SBO, states this feels similar. Hx GERD, HTN. Surgical hx includes hysterectomy, appendectomy, colectomy, colovaginal fistula repair. On exam, she appears nontoxic. She has hypoactive bowel sounds. Tenderness in LUQ, LLQ. No hx of ETOH use. She has responded well to toradol in the past. Will give Toradol, zofran and hydrate. She has had diarrhea so do not have reason to suspect recurrent SBO. More concerned for diverticulitis. Also considered pancreatis, colitis vs. other abdominal pathology. Will obtain CT. Discussed with patient who is in agreement. At the end of my shift, care transitioned to Jeremy Urena PA-C, with imaging and reassessment pending. <KENDRA Neal - Last Filed: 04/02/20 17:10> I assumed care of this 69-year-old female at shift change from my colleague KENDRA Sanches, please see her original HPI and examination. At time of shift change CT imaging is pending. Patient has a complicated past medical history as she presents today with nausea and vomiting, diarrhea, abdominal pain, concern for small bowel obstruction. Patient has been given IV fluids, Toradol, Zofran and at shift change she is resting comfortably and reports that she feels quite well at the moment. I received a call from virtual radiology with the CT abdomen pelvis with contrast, multiple dilated loops of bowel are concentrated in the anterior aspect of the pelvis. Some of the dilated loops of bowel contain sutures. This may represent internal hernia or closed-loop obstruction. Some loops of bowel in the right pelvis have bowel wall thickening and may represent enteritis including infectious and inflammatory etiologies. Given her presentation and CT findings I believe that admission is reasonable, will discuss case with our surgical team. I discussed the case with Dr. Dent. She is agreeable to admit the patient and will write admission orders. She recommends IV fluid, patient is already receiving IV fluids at the moment. She also recommends NG tube. I discussed these recommendations with patient who politely declines NG tube. She reports that she has not vomited since late last night early this morning. She has had multiple bowel obstructions in the past and only one time required an NG tube. She understands that if her symptoms worsen or evolve the NG tube may be required. Patient understands this but at this time still declines NG tube. Medical Records Medical records reviewed: Yes I reviewed the patient's medical records. Lab Data Lab results reviewed: Yes I reviewed the patient's lab results. Labs: Laboratory Tests Range/Units 04/02/20 04/02/20 15:10 15:10 WBC (4.4-10.8) 10^3/uL 10.84 H RBC (3.93-5.22) 10^6/uL 4.49 Hgb (11.2-15.7) g/dL 10.2 L Hct (36.0-46.0) % 34.3 L MCV (80-95) fL 76.4 L MCH (27.0-33.0) pg 22.7 L MCHC (32.0-36.0) % 29.7 L RDW (11.7-14.6) % 17.5 H Plt Count (130-400) 10^3/uL 503 H MPV (8.0-11.0) fL 10.1 Immature Gran % 0.4 Neutrophils % 80.5 Lymphocytes % 12.9 Monocytes % 5.9 Eosinophils % 0.0 Basophils % 0.3 Nucleated RBC % % 0 Absolute Neutrophils (1.2-6.7) 10^3/uL 8.73 H Absolute Lymphocytes (1.2-3.4) 10^3/uL 1.40 Absolute Monocytes (0.1-0.8) 10^3/uL 0.64 Absolute Eosinophils (0.0-0.7) 10^3/uL 0.00 Absolute Basophils (0.0-0.2) 10^3/uL 0.03 Sodium (136-145) mmol/L 136 Potassium (3.5-5.1) mmol/L 3.5 Chloride (98-107) mmol/L 100 Carbon Dioxide (21.0-32.0) mmol/L 25.9 Anion Gap (3-11) mmol/L 10.1 BUN (7-18) mg/dL 21 H Creatinine (0.55-1.02) mg/dL 1.22 H Estimated GFR/1.73 m2 (mL/min/1.73m2) 43.83 Glucose (74-106) mg/dL 134 H Calcium (8.5-10.1) mg/dL 9.0 Magnesium (1.8-2.4) mg/dL 1.8 Total Bilirubin (0.2-1.0) mg/dL 0.3 AST (15-37) U/L 15 ALT (14-59) U/L 17 Alkaline Phosphatase (46-116) U/L 86 Total Protein (6.4-8.2) g/dL 7.4 Albumin (3.4-5.0) g/dL 3.6 Lipase (73-393) U/L 84 HPI <KENDRA Faust - Last Filed: 04/02/20 16:18> General Mode of arrival: ambulatory . Date/Time Provider Initiated Documentation: 04/02/20 14:48 . Limitations to Documentation: no limitations . Information obtained by: patient, RN notes reviewed and old records reviewed . History of Present Illness 69 year old F presents to the emergency department with the chief complaint of left sided abdominal pain, N/V/D, described as moderate and similar to prior episodes, with intensity rated at 4. Quality is described as aching, and is localized to the abdomen. Patient reports no radiation. Patient started experiencing this day(s) (last night) and it has been constant. No relieving factors improve symptom(s), Eating worsens symptoms . Patient notes loss of appetite and nausea/vomiting; denies chest pain, cough, diaphoresis, fever/chills, rash and shortness of breath. Patient did receive the following treatments prior to arrival, none Related Data Home Medications Medication Instructions Recorded Confirmed aspirin [Aspirin Low-Strength] 81 mg PO DAILY #100 tab 11/10/12 04/02/20 melatonin-pyridoxine (vit B6) 2 tab PO HS PRN 05/21/17 04/02/20 acetaminophen [Tylenol] 650 mg PO Q6H PRN PRN tab 07/25/17 04/02/20 varicella-zoster glycoE [id number] 0.5 ml IM ONCE #1 each 07/21/19 04/02/20 adj(PF) 50 mcg/0.5 mL IM susp, kit losartan 50 mg-hydrochlorothiazide 1 tab PO DAILY #90 tab 07/27/19 04/02/20 12.5 mg tablet estradiol 0.5 mg tablet 0.5 mg PO DAILY #90 tab 08/02/19 04/02/20 dicyclomine 10 mg capsule 20 mg PO TID #90 tab-cap 11/09/19 04/02/20 omeprazole 20 mg capsule,delayed 20 mg PO DAILY #90 cap 12/14/19 04/02/20 release fluticasone propionate 50 50 mcg NS DAILY PRN #1 inh 03/15/20 04/02/20 mcg/actuation nasal spray,suspension Previous Rx's Medication Instructions Recorded acetaminophen [Tylenol] 650 mg PO Q6H PRN PRN tab 07/25/17 varicella-zoster glycoE [id number] 0.5 ml IM ONCE #1 each 07/21/19 adj(PF) 50 mcg/0.5 mL IM susp, kit losartan 50 mg-hydrochlorothiazide 1 tab PO DAILY #90 tab 07/27/19 12.5 mg tablet estradiol 0.5 mg tablet 0.5 mg PO DAILY #90 tab 08/02/19 dicyclomine 10 mg capsule 20 mg PO TID #90 tab-cap 11/09/19 omeprazole 20 mg capsule,delayed 20 mg PO DAILY #90 cap 12/14/19 release fluticasone propionate 50 50 mcg NS DAILY PRN #1 inh 03/15/20 mcg/actuation nasal spray,suspension Allergies Allergy/AdvReac Type Severity Reaction Status Date / Time sumatriptan Allergy Severe Anaphylaxsi Verified 04/02/20 14:55 s ciprofloxacin Allergy Unknown Skin Rash Verified 04/02/20 14:55 morphine AdvReac Severe Nausea Verified 04/02/20 14:55 doxycycline monohydrate AdvReac Intermediate vomiting Verified 04/02/20 14:55 [From Vibramycin] Penicillins AdvReac Intermediate Nausea Verified 04/02/20 14:55 tramadol AdvReac Intermediate dizzyness, Verified 04/02/20 14:55 faintness General RAHEL: 3 Review of Systems <KENDRA Faust - Last Filed: 04/02/20 16:18> Constitutional Constitutional: Reports as per HPI, Denies chills, Denies fatigue, Denies fever(s) and Denies headache(s) ENT Ears, Nose, Mouth, and Throat: Denies headache(s) Cardiovascular Cardiovascular: Reports as per HPI, Denies chest pain and Denies dyspnea Respiratory Respiratory: Reports as per HPI, Denies cough and Denies dyspnea Gastrointestinal Gastrointestinal: Reports as per HPI Musculoskeletal Musculoskeletal: Reports as per HPI and Denies back pain Integumentary/Breasts Skin/Breast: Reports as per HPI and Denies rash Neurologic Neurologic: Reports as per HPI and Denies headache(s) Endocrine Endocrine: Denies fatigue PFSH <KENDRA Faust - Last Filed: 04/02/20 16:18> Medical History Colovaginal fistula Depression GERD (gastroesophageal reflux disease) Hypercholesterolemia Hypertension Incisional hernia Infertility, female Intestinal anastomotic leak Migraine Ovarian cyst, left SBO (small bowel obstruction) Small bowel obstruction due to adhesions Ventral hernia Surgical History Abdominal hysterectomy Appendectomy Arthroplasty of knee right Colectomy and removal of left ovarian cyst 2014 Colostomy 201401/23/16 diverting transverse loop colostomy Dr Camargo colostomy takedown and MIKA (11/14/15) colostomy takedown and MIKA (07/22/17) colovaginal fistula and abd wall hernia (01/23/16) hernia abdominal wall repair (01/23/16) Dr Camargo Oophrectomy, Both Reduction mammoplasty Right subclavian vein triple lumen central line placement (01/23/16) by Dr Horne, access needed for colovaginal fistula repair Rotator Cuff Repair left shoulder Sigmoidoscopy (05/28/17) Tonsillectomy and adenoidectomy transforaminal nerve root block (04/27/14) Dr White steroid injection Family History Mother , Alzheimers Tuberculosis Hyperlipidemia Breast cancer Father Heart disease Other Diabetes Ovarian cancer Social History Smoking/Tobacco Use Status: Never Smoking risk assessment performed?: Yes Alcohol Intake: current Alcohol Intake frequency: a few times a week Alcohol type: wine Drug use: Never Substance use type: does not use Household members: significant other Housing: house Number of Children: 1 number of grandchildren: 0 Communication Needs: Corrective Lenses 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 [employer] 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: female What is your relationship status?: living with partner Panel score (0-1 are the most socially isolated patients): 1 What type of physical activity do you participate in: regular exercise and other Details: physically active daily Seatbelt use: always 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 Working smoke detector in home: Yes Fire extinguisher in home: Yes Carbon monox detector in home: Yes Do you feel safe at home: Yes Do you feel safe in your relationship?: Yes Female Reproductive History Menstrual Menopause type: surgical Exam <KENDRA Faust - Last Filed: 04/02/20 16:18> Const General: cooperative, healthy appearing, comfortable, no acute distress and well developed Nutritional Appearance: average body habitus and well nourished Orientation: alert and awake [facility] Head: normal to inspection Mouth: moist mucous membranes Resp Effort & Inspection: normal respiratory effort, able to speak in complete sentences and no respiratory distress Auscultation: clear to auscultation bilaterally, no rales, no rhonchi and no wheezes Cardio Rate: regular rate Rhythm: regular rhythm Heart Sounds: S1 normal and S2 normal GI Inspection: normal to inspection, scar (well healed midline incision), no visible herniation, no visible pulsation and No visible peristalsis Palpation: soft, no hepatosplenomegaly, not firm, no guarding, no hernias, no masses, no pulsatile masses, not rigid and tender in the LLQ and in the LUQ; with no rebound tenderness Percussion: normal to percussion Auscultation: hypoactive bowel sounds Back/Spine/Pelvis Back: no CVA tenderness Skin General skin exam: no rashes or lesions noted Trauma: no lacerations or abrasions Neuro General: patient alert and patient awake Cognition: normal cognition Speech: speech normal Gait: normal gait Psych Appearance: grossly normal and well kempt Mental Status: mental status grossly normal Speech and Movement: speech and movement normal Sign Out <KENDRA Faust - Last Filed: 04/02/20 16:18> Sign Out Data: Sign Out Comment: Care transitioned to Jeremy Urena PA-C with imaging pending. Last updated by Norma Sanches PA at 04/02/20 15:46
[2020-04-02 14:52] VITALS: BP 147/81; PULSE 103; RESP 16; TEMP 36.7; O2SAT 96
--- NOTE | 2020-04-02 15:00 | DI.CT_ITS ---
EXAM: CT ABDOMEN PELVIS W CLINICAL HISTORY: left sided abdominal pain TECHNIQUE: Imaging Protocol: Axial computed tomography images with coronal and sagittal reformatted images were created and reviewed CONTRAST MATERIAL: Intravenous: Omnipaque 350 Contrast volume:100 mL Oral: yes / no COMPARISON: CT CT ABDOMEN PELVIS W from 08/16/2018 FINDINGS: ABDOMEN: Lung Bases: Normal where visualized. Liver: Normal density. No measurable mass. Stable hepatic cysts. Portal, Superior Mesenteric, and Splenic Veins: Unremarkable. Gallbladder and Biliary Tract: No radiodense calculus or dilation. Pancreas: Normal density, no abnormal calcifications or inflammatory process. Spleen: Normal. Adrenals: No masses seen. Kidneys: Normal size, contour and axis. No radiodense stones or obstructive uropathy. No masses seen. Abdominal Aorta: Abdominal portion non-dilated. Bowel: There are moderately dilated loops of small bowel seen in the anterior pelvis. There are sutu res seen in a loop of transverse colon. Sutures are also seen in the small bowel loops in the pelvis . No evidence of acute appendicitis. Mild bowel wall thickening seen in loops of small bowel in the right pelvis. This may represent an infectious or inflammatory enteritis. Peritoneal Cavity: No ascites, collection or mesenteric inflammatory response. No pneumoperitoneum. Lymph Nodes: Within normal limits. Bones: Unremarkable. Soft Tissues: Unremarkable. PELVIS: Bladder: Symmetric distention, no gross wall thickening. Reproductive Organs: Unremarkable as visualized. Lymph Nodes: Within normal limits. Bones: Within normal limits. IMPRESSION: Multiple dilated loops of bowel seen in the anterior pelvis. Findings may represent an internal kenyetta ia or closed loop obstruction. Dilated loops occur there are areas of small and large bowel anastomo tic sutures. Mild bowel wall thickening in small bowel loops in the right pelvis which may represent infectious or inflammatory enteritis. RADIATION DOSE DELIVERED: 607.83mGy.cm Total DLP DATA REPOSITORY: All CT scans at this facility are submitted to the National Radiology Data Registry (NRDR) Dose Index Registry (DIR) with the [employer] (A[employer]). RADIATION OPTIMIZATION: All CT scans at this facility use at least one of these dose optimization te chniques: automated exposure control; mA and/or kV adjustment per patient size (includes targeted exa ms where dose is matched to clinical indication); or iterative reconstruction.
[2020-04-02] MEDS: Ketorolac 15 MG/ML VIAL IVP ×2 (15:18→21:54)
[2020-04-02] MEDS: Normal Saline 1,000 ML 1000 ML IV (15:18)
[2020-04-02] MEDS: Ondansetron 4 MG/2 ML VIAL IVP (15:18)
[2020-04-02 15:22] LABS: Abs Immature Grans 0.04 10^3/uL (0.0-0.06); Absolute Basophil Count 0.03 10^3/uL (0.0-0.2); Absolute Monocyte Count 0.64 10^3/uL (0.1-0.8); Absolute Neutrophil Count 8.73 10^3/uL (1.2-6.7); Basophils % 0.3; HCT 34.3 % (36.0-46.0); HGB 10.2 g/dL (11.2-15.7); Immature Grans % 0.4; Lymphocytes % 12.9; MCH 22.7 pg (27.0-33.0); MCHC 29.7 % (32.0-36.0); MCV 76.4 fL (80-95); MPV 10.1 fL (8.0-11.0); Monocytes % 5.9; Neutrophils % 80.5; Nucleated RBC 0 %; Platelet Count 503 10^3/uL (130-400); RBC 4.49 10^6/uL (3.93-5.22); RDW 17.5 % (11.7-14.6); RDW-SD 48.2 fL; WBC 10.84 10^3/uL (4.4-10.8)
[2020-04-02 15:39] LABS: ALT 17 U/L (14-59); AST 15 U/L (15-37); Albumin 3.6 g/dL (3.4-5.0); Alkaline Phosphatase 86 U/L (46-116); Anion Gap 10.1 mmol/L (3-11); BUN 21 mg/dL (7-18); Bilirubin, Total 0.3 mg/dL (0.2-1.0); CO2 25.9 mmol/L (21.0-32.0); CREATININE 1.22 mg/dL (0.55-1.02); Chloride 100 mmol/L (98-107); Estimated GFR 43.83 (mL/min/1.73m2); Glucose 134 mg/dL (74-106); Lipase 84 U/L (73-393); Magnesium 1.8 mg/dL (1.8-2.4); Potassium 3.5 mmol/L (3.5-5.1); Sodium 136 mmol/L (136-145); Total Protein 7.4 g/dL (6.4-8.2)
[2020-04-02] MEDS: Omnipaque 350 MG/ML 100 ML BTL IJ (15:58)
[2020-04-02] MEDS: Normal Saline - Diluent 50 ML VIAL IV (15:58)
[2020-04-02] MEDS: Normal Saline Flush 10 ML SYR IVP (16:00)
--- NOTE | 2020-04-02 16:32 | DI.VRAD_ITS ---
PROCEDURE INFORMATION: Exam: CT Abdomen And Pelvis With Contrast Exam date and time: 04/02/2020 3:56 PM Age: 69 years old Clinical indication: Abdominal pain; Prior surgery TECHNIQUE: Imaging protocol: Computed tomography of the abdomen and pelvis with intravenous contrast. COMPARISON: CT ABDOMEN PELVIS W 08/16/2018 2:02 PM FINDINGS: Liver: 16 mm simple hepatic cyst and 14 mm simple hepatic cyst.No follow-up imaging required . Gallbladder and bile ducts: Normal. No calcified stones. No ductal dilation. Pancreas: Normal. No ductal dilation. Spleen: Normal. No splenomegaly. Adrenal glands: Normal. No mass. Kidneys and ureters: Normal. No hydronephrosis. Stomach and bowel: Multiple dilated loops of bowel are concentrated in the anterior aspect of the pelvis. Some of the dilated loops of bowel contains sutures This may represent internal hernia or closed loop obstruction . Some loops of bowel in the right the pelvis have bowel wall thickening and may represent enteritis including infectious and inflammatory etiologies Appendix: No evidence of appendicitis. Intraperitoneal space: Unremarkable. No free air. No significant fluid collection. Vasculature: Unremarkable. No abdominal aortic aneurysm. Lymph nodes: Unremarkable. No enlarged lymph nodes. Urinary bladder: Unremarkable as visualized. Reproductive: Unremarkable as visualized. Bones/joints: Unremarkable. No acute fracture. Soft tissues: Unremarkable. IMPRESSION: Multiple dilated loops of bowel are concentrated in the anterior aspect of the pelvis. Some of the dilated loops of bowel contains sutures This may represent internal hernia or closed loop obstruction . Some loops of bowel in the right the pelvis have bowel wall thickening and may represent enteritis including infectious and inflammatory etiologies THIS REPORT CONTAINS FINDINGS THAT MAY BE CRITICAL TO PATIENT CARE. The findings were verbally communicated via telephone conference with Jeremy GARDNER at 4:30 PM EST on 04/02/2020. The findings were acknowledged and understood. Dictated and Authenticated by: John Oleary MD. Ordering:EVELYN Green MD
[2020-04-02] MEDS: Normal Saline 1,000 ML 500 ML IV (16:53)
[2020-04-02 17:03] VITALS: BP 135/58; PULSE 77; RESP 17; TEMP 36.7; O2SAT 100
[2020-04-02 17:49] LABS: Bilirubin Negative (Negative); Blood Trace-intact (Negative); Clarity Clear (Clear); Glucose Negative (Negative); Ketones Negative (Negative); Leukocyte Esterase Negative (Negative); Nitrite Negative (Negative); Urobilinogen 0.2 EU/dL (Up TO 0.2); pH 6.5 (5-8)
[2020-04-02 17:54] VITALS: BP 151/80; PULSE 88; RESP 18; TEMP 36.7; O2SAT 98
[2020-04-02 17:57] LABS: Epithelial Cells Few HPF (Negative); Other Cells Few Yeast (Negative); RBC 0-2 HPF (0-2)
[2020-04-02 17:58] LABS: Bacteria Rare HPF (Negative); C & S Indicated? No; Casts Negative LPF (Negative); Crystals Negative HPF (Negative); Mucus Negative (Negative)
[2020-04-02] MEDS: Lactated Ringers 1,000 ML 125 ML IV (19:10)
--- NOTE | 2020-04-02 19:18 | W.PM.HP.N ---
Date of service: 04/03/20 Time of Service: 09:00 Assessment and Plan Assessment and plan (1) SBO (small bowel obstruction): Status: Acute Assessment and plan: -pt refuses NGT. No n/v at this time. hydration pain management supportive care walk (2) Obstructive sleep apnea syndrome, moderate: Status: Acute (3) Anemia: Status: Chronic (4) GERD (gastroesophageal reflux disease): Status: Chronic (5) Acquired absence of both cervix and uterus: Status: Acute (6) Abdominal adhesions: Status: Acute (7) S/P colostomy takedown: Status: Chronic History of Present Illness Consults Consult date: 04/02/20 Requesting physician: Jeremy Urena Narrative: From re examiner. 04/20. Pt is S/P Hyst for fibroids at age 49. Part of one ovary remains. Had her ostomy repaired 2 yrs ago. 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 Had her abdominal herina repaired in 01/2019 at [facility]. Feels much better and is happy she had the surgery. Pt continues on PO Estradiol 0.5 mg daily. Feels well and wishes to continue. She has been on the ET for 1-15 yrs. We discussed the potential increased risk for breast cancer after the 10 yr time period. Pt acknowledges the risk and wants to continue on the Med. Her Mom did have breast cancer. Her repaired 02/[address] mesh.underlay intraperitoneal fashion. s/p sigmoid resection adn repair of vaginal fisutla. x2 colostomy's and x2 prior hernias repairs. She had mult. SBO's prior to her hernia repair. This was done at [facility] 02/18. They spent 2hrs removing the sm B from the hernia sack. They did an intraperitoneal underlay. Pt came into the ED last pm c/o nausea and abdominal pain. She was having profuse diarrhea. No bleeding. She denies trauma or eating anything unsual or any unsual activity or travel. I did review her CT- She does have a mass of small bowel adherent to the mesh on the ant. abdominal wall. Post Sx changes noted. Lg volume of stool. I did review her old Op repots from [facility] as well. 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 Review of Systems All systems reviewed & are unremarkable except as noted in HPI and below [facility] Medical History (Updated 04/02/20 @ 19:47 by Lia Dent DO) Anemia Colovaginal fistula Depression GERD (gastroesophageal reflux disease) Hypercholesterolemia Hypertension Incisional hernia Infertility, female Intestinal anastomotic leak Migraine Ovarian cyst, left SBO (small bowel obstruction) SBO (small bowel obstruction) Small bowel obstruction due to adhesions Ventral hernia Surgical History Abdominal hysterectomy Appendectomy Arthroplasty of knee right Colectomy and removal of left ovarian cyst 2014 Colostomy 201401/23/16 diverting transverse loop colostomy Dr Camargo colostomy takedown and MIKA (11/14/15) colostomy takedown and MIKA (07/22/17) colovaginal fistula and abd wall hernia (01/23/16) hernia abdominal wall repair (01/23/16) Dr Camargo Oophrectomy, Both Reduction mammoplasty Right subclavian vein triple lumen central line placement (01/23/16) by Dr Horne, access needed for colovaginal fistula repair Rotator Cuff Repair left shoulder Sigmoidoscopy (05/28/17) Tonsillectomy and adenoidectomy transforaminal nerve root block (04/27/14) Dr White steroid injection Family History Mother , Alzheimers Tuberculosis Hyperlipidemia Breast cancer Father Heart disease Other Diabetes Ovarian cancer Social History Smoking/Tobacco Use Status: Never Smoking risk assessment performed?: Yes Alcohol Intake: current Alcohol Intake frequency: a few times a week Alcohol type: wine Drug use: Never Substance use type: does not use Household members: significant other Housing: house Number of Children: 1 number of grandchildren: 0 Communication Needs: Corrective Lenses 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 Working smoke detector in home: Yes Fire extinguisher in home: Yes Carbon monox detector in home: Yes Do you feel safe at home: Yes Do you feel safe in your relationship?: Yes Female Reproductive History Menstrual Menopause type: surgical Meds Home Medications and Allergies Home Medications Medication Instructions Recorded Confirmed Type aspirin [Aspirin Low-Strength] 81 mg PO DAILY #100 tab 11/10/12 04/02/20 History melatonin-pyridoxine (vit B6) 2 tab PO HS PRN 05/21/17 04/02/20 History acetaminophen [Tylenol] 650 mg PO Q6H PRN PRN tab 07/25/17 04/02/20 Rx varicella-zoster glycoE [id number] 0.5 ml IM ONCE #1 each 07/21/19 04/02/20 Rx adj(PF) 50 mcg/0.5 mL IM susp, kit losartan 50 mg-hydrochlorothiazide 1 tab PO DAILY #90 tab 07/27/19 04/02/20 Rx 12.5 mg tablet estradiol 0.5 mg tablet 0.5 mg PO DAILY #90 tab 08/02/19 04/02/20 Rx dicyclomine 10 mg capsule 20 mg PO TID #90 tab-cap 11/09/19 04/02/20 Rx omeprazole 20 mg capsule,delayed 20 mg PO DAILY #90 cap 12/14/19 04/02/20 Rx release fluticasone propionate 50 50 mcg NS DAILY PRN #1 inh 03/15/20 04/02/20 Rx mcg/actuation nasal spray,suspension Allergies Allergy/AdvReac Type Severity Reaction Status Date / Time sumatriptan Allergy Severe Anaphylaxsi Verified 04/02/20 14:55 s ciprofloxacin Allergy Unknown Skin Rash Verified 04/02/20 14:55 morphine AdvReac Severe Nausea Verified 04/02/20 14:55 doxycycline monohydrate AdvReac Intermediate vomiting Verified 04/02/20 14:55 [From Vibramycin] Penicillins AdvReac Intermediate Nausea Verified 04/02/20 14:55 tramadol AdvReac Intermediate dizzyness, Verified 04/02/20 14:55 faintness Exam Narrative Exam Narrative: PHYSICAL EXAM GENERAL APPEARANCE: Alert, healthy appearance, oriented, in no acute distress HYDRATION: Well hydrated HEAD, EYES, EARS, NECK, AND THROAT: Head is normocephalic, pupils equal, round, reactive to light and accommodation, ocular movement intact, sclera clear and no jaundice. Dentition intact. LUNGS: normal respiration, clear to auscultation HEART: Regular rate and rhythm, EXTREMITY: No edema or cyanosis ABDOMEN: non tender to palpation, no masses or distention, no hernias defects. Normal bowel sounds today. extensive post surgical changes noted. NEURO: no focal neuro deficits. Results Labs Result diagrams: 04/02/20 15:10 04/03/20 06:36 Labs: Laboratory Results - last 24 hr 04/02/20 04/02/20 04/02/20 15:10 15:10 17:45 WBC 10.84 H RBC 4.49 Hgb 10.2 L Hct 34.3 L MCV 76.4 L MCH 22.7 L MCHC 29.7 L RDW 17.5 H Plt Count 503 H MPV 10.1 Immature Gran % 0.4 Neutrophils % 80.5 Band Neutrophils % Lymphocytes % 12.9 Atypical Lymphs % Monocytes % 5.9 Eosinophils % 0.0 Basophils % 0.3 Metamyelocytes % Myelocytes % Promyelocytes % Other Cells % Nucleated RBC % 0 Absolute Neutrophils 8.73 H Absolute Lymphocytes 1.40 Absolute Monocytes 0.64 Absolute Eosinophils 0.00 Absolute Basophils 0.03 RBC Morphology Polychromasia Hypochromasia Poikilocytosis Basophilic Stippling Anisocytosis Microcytosis Macrocytosis Spherocytes Tear Drop Cells Ovalocytes Stomatocytes [place] Bodies Qasim Cells/Echinocytes Acanthocytes (Spur) Schistocytes Sodium 136 Potassium 3.5 Chloride 100 Carbon Dioxide 25.9 Anion Gap 10.1 BUN 21 H Creatinine 1.22 H Estimated GFR/1.73 m2 43.83 Glucose 134 H Calcium 9.0 Magnesium 1.8 Total Bilirubin 0.3 AST 15 ALT 17 Alkaline Phosphatase 86 Total Protein 7.4 Albumin 3.6 Lipase 84 Urine Color Yellow Urine Clarity Clear Urine pH 6.5 Ur Specific [place] 1.010 Urine Protein Negative Urine Ketones Negative Urine Blood Trace-intact H Urine Nitrite Negative Urine Bilirubin Negative Urine Urobilinogen 0.2 Ur Leukocyte Esterase Negative Urine RBC 0-2 Urine WBC 3-5 Ur Epithelial Cells Few Urine Crystals Negative Urine Bacteria Rare Urine Casts Negative Urine Mucus Negative Urine Other Few yeast Ur Culture Indicated? No Urine Glucose Negative 04/02/20 04/02/20 Unknown Unknown WBC Cancelled RBC Cancelled Hgb Cancelled Hct Cancelled MCV Cancelled MCH Cancelled MCHC Cancelled RDW Cancelled Plt Count Cancelled MPV Cancelled Immature Gran % Cancelled Neutrophils % Cancelled Band Neutrophils % Cancelled Lymphocytes % Cancelled Atypical Lymphs % Cancelled Monocytes % Cancelled Eosinophils % Cancelled Basophils % Cancelled Metamyelocytes % Cancelled Myelocytes % Cancelled Promyelocytes % Cancelled Other Cells % Cancelled Nucleated RBC % Cancelled Absolute Neutrophils Cancelled Absolute Lymphocytes Cancelled Absolute Monocytes Cancelled Absolute Eosinophils Cancelled Absolute Basophils Cancelled RBC Morphology Cancelled Polychromasia Cancelled Hypochromasia Cancelled Poikilocytosis Cancelled Basophilic Stippling Cancelled Anisocytosis Cancelled Microcytosis Cancelled Macrocytosis Cancelled Spherocytes Cancelled Tear Drop Cells Cancelled Ovalocytes Cancelled Stomatocytes Cancelled [place] Bodies Cancelled [place] Cells/Echinocytes Cancelled Acanthocytes (Spur) Cancelled Schistocytes Cancelled Sodium Potassium Chloride Carbon Dioxide Anion Gap BUN Creatinine Estimated GFR/1.73 m2 Glucose Calcium Magnesium Total Bilirubin AST ALT Alkaline Phosphatase Total Protein Albumin Lipase Cancelled Urine Color Urine Clarity Urine pH Ur Specific [place] Urine Protein Urine Ketones Urine Blood Urine Nitrite Urine Bilirubin Urine Urobilinogen Ur Leukocyte Esterase Urine RBC Urine WBC Ur Epithelial Cells Urine Crystals Urine Bacteria Urine Casts Urine Mucus Urine Other Ur Culture Indicated? Urine Glucose Last Vital Signs Temp 36.7 C 04/02/20 17:54 Pulse 88 04/02/20 17:54 Resp 18 04/02/20 17:54 BP 151/80 H 04/02/20 17:54 Pulse Ox 98 04/02/20 17:54 COVID-19 Screening Have you,or household,traveled outside [place] in last 14 days?: No Had IN PERSON contact w/suspected or confirmed C-19 person: No
[2020-04-02] MEDS: ACETAMINOPHEN 1,000 MG/100 ML BTL 400 MG IVPB (19:19)
[2020-04-02] MEDS: Pantoprazole 40 MG VIAL IVP (19:24)
[2020-04-02] MEDS: Enoxaparin 40 MG/0.4 ML SYR SC (19:24)
[2020-04-03 00:08] VITALS: BP 152/78; PULSE 86; RESP 17; TEMP 36.6; O2SAT 95
[2020-04-03] MEDS: HYDROmorphone 2 MG/ML VIAL 0.5 MG IVP ×2 (01:32→10:31)
[2020-04-03] MEDS: Ketorolac 15 MG/ML VIAL IVP ×4 (04:22→21:46)
[2020-04-03] MEDS: ACETAMINOPHEN 1,000 MG/100 ML BTL 400 MG IVPB ×3 (04:23→19:59)
[2020-04-03] MEDS: Lactated Ringers 1,000 ML 125 ML IV ×3 (04:23→19:21)
--- NOTE | 2020-04-03 07:00 | DI.RAD_ITS ---
EXAM: 2D digital imaging was performed. CLINICAL HISTORY: sbo. COMPARISON: No exams were available for comparison TECHNIQUE: Supine views of the abdomen performed. FINDINGS: BOWEL GAS PATTERN: Nondistended. CALCIFICATIONS: No radiopaque calcifications. OSSEOUS STRUCTURES: Normal for age. OTHER FINDINGS: None. IMPRESSION: 1. Nonobstructive bowel gas pattern. DATA REPOSITORY: RADIATION DOSE DELIVERED:
[2020-04-03 07:50] LABS: ALT 12 U/L (14-59); AST 13 U/L (15-37); Albumin 2.7 g/dL (3.4-5.0); Alkaline Phosphatase 60 U/L (46-116); Anion Gap 7.1 mmol/L (3-11); BUN 13 mg/dL (7-18); Bilirubin, Total 0.4 mg/dL (0.2-1.0); CO2 25.9 mmol/L (21.0-32.0); CREATININE 0.98 mg/dL (0.55-1.02); Calcium 7.7 mg/dL (8.5-10.1); Chloride 104 mmol/L (98-107); Estimated GFR 56.44 (mL/min/1.73m2); Ferritin 6 ng/mL (8-252); Glucose 99 mg/dL (74-106); Magnesium 1.6 mg/dL (1.8-2.4); Potassium 3.1 mmol/L (3.5-5.1); Sodium 137 mmol/L (136-145); Total Protein 5.7 g/dL (6.4-8.2)
--- NOTE | 2020-04-03 07:55 | W.PM.PROGNOT ---
Documented by User: KENDRA Kam 04/03/20 08:04 Date of Service Date of service: 04/03/20 Time of Service: 07:55 Assessment and Plan Assessment and plan (1) SBO (small bowel obstruction): Status: Acute Assessment and plan: Denies any BMs or flatus. Continue NPO status Hypoactive bowel sounds Pain is currently well controlled. Requested Zofran to be administered, secondary to patient's complaints of nausea. If she begins to have vomiting will consider NG tube placement. Subjective Subjective Interval history since last seen: Patient reports feeling nauseous this morning, which she relates to receiving Dilaudid. She states that has occurred in the past when being treated for previous SBO. She reports that her last BM was yesterday afternoon prior to going to the ER. She states that the night prior she had several BMs, I was cleaned out. No BMs since that time. Exam Const General: cooperative, healthy appearing and comfortable Orientation: alert and oriented x3 Resp Effort & Inspection: normal respiratory effort, no audible wheezes and no cough GI Inspection: normal to inspection and scar (Midline. ) Palpation: no guarding and tender Auscultation: hypoactive bowel sounds Objective Last Vital Signs Temp 36.6 C 04/03/20 00:08 Pulse 86 04/03/20 00:08 Resp 17 04/03/20 00:08 BP 152/78 H 04/03/20 00:08 Pulse Ox 95 04/03/20 00:08 Laboratory Results - last 24 hr 04/02/20 04/02/20 04/02/20 15:10 15:10 17:45 WBC 10.84 H RBC 4.49 Hgb 10.2 L Hct 34.3 L MCV 76.4 L MCH 22.7 L MCHC 29.7 L RDW 17.5 H Plt Count 503 H MPV 10.1 Immature Gran % 0.4 Neutrophils % 80.5 Band Neutrophils % Lymphocytes % 12.9 Atypical Lymphs % Monocytes % 5.9 Eosinophils % 0.0 Basophils % 0.3 Metamyelocytes % Myelocytes % Promyelocytes % Other Cells % Nucleated RBC % 0 Absolute Neutrophils 8.73 H Absolute Lymphocytes 1.40 Absolute Monocytes 0.64 Absolute Eosinophils 0.00 Absolute Basophils 0.03 RBC Morphology Polychromasia Hypochromasia Poikilocytosis Basophilic Stippling Anisocytosis Microcytosis Macrocytosis Spherocytes Tear Drop Cells Ovalocytes Stomatocytes [place] Bodies [place] Cells/Echinocytes Acanthocytes (Spur) Schistocytes Sodium 136 Potassium 3.5 Chloride 100 Carbon Dioxide 25.9 Anion Gap 10.1 BUN 21 H Creatinine 1.22 H Estimated GFR/1.73 m2 43.83 Glucose 134 H Calcium 9.0 Magnesium 1.8 Ferritin Total Bilirubin 0.3 AST 15 ALT 17 Alkaline Phosphatase 86 Total Protein 7.4 Albumin 3.6 Lipase 84 Urine Color Yellow Urine Clarity Clear Urine pH 6.5 Ur Specific [place] 1.010 Urine Protein Negative Urine Ketones Negative Urine Blood Trace-intact H Urine Nitrite Negative Urine Bilirubin Negative Urine Urobilinogen 0.2 Ur Leukocyte Esterase Negative Urine RBC 0-2 Urine WBC 3-5 Ur Epithelial Cells Few Urine Crystals Negative Urine Bacteria Rare Urine Casts Negative Urine Mucus Negative Urine Other Few yeast Ur Culture Indicated? No Urine Glucose Negative 04/02/20 04/02/20 04/03/20 Unknown Unknown 06:36 WBC Cancelled RBC Cancelled Hgb Cancelled Hct Cancelled MCV Cancelled MCH Cancelled MCHC Cancelled RDW Cancelled Plt Count Cancelled MPV Cancelled Immature Gran % Cancelled Neutrophils % Cancelled Band Neutrophils % Cancelled Lymphocytes % Cancelled Atypical Lymphs % Cancelled Monocytes % Cancelled Eosinophils % Cancelled Basophils % Cancelled Metamyelocytes % Cancelled Myelocytes % Cancelled Promyelocytes % Cancelled Other Cells % Cancelled Nucleated RBC % Cancelled Absolute Neutrophils Cancelled Absolute Lymphocytes Cancelled Absolute Monocytes Cancelled Absolute Eosinophils Cancelled Absolute Basophils Cancelled RBC Morphology Cancelled Polychromasia Cancelled Hypochromasia Cancelled Poikilocytosis Cancelled Basophilic Stippling Cancelled Anisocytosis Cancelled Microcytosis Cancelled Macrocytosis Cancelled Spherocytes Cancelled Tear Drop Cells Cancelled Ovalocytes Cancelled Stomatocytes Cancelled [place] Bodies Cancelled [place] Cells/Echinocytes Cancelled Acanthocytes (Spur) Cancelled Schistocytes Cancelled Sodium 137 Potassium 3.1 L Chloride 104 Carbon Dioxide 25.9 Anion Gap 7.1 BUN 13 D Creatinine 0.98 Estimated GFR/1.73 m2 56.44 Glucose 99 Calcium 7.7 L Magnesium 1.6 L Ferritin 6 L Total Bilirubin 0.4 AST 13 L ALT 12 L Alkaline Phosphatase 60 Total Protein 5.7 L Albumin 2.7 L Lipase Cancelled Urine Color Urine Clarity Urine pH Ur Specific [place] Urine Protein Urine Ketones Urine Blood Urine Nitrite Urine Bilirubin Urine Urobilinogen Ur Leukocyte Esterase Urine RBC Urine WBC Ur Epithelial Cells Urine Crystals Urine Bacteria Urine Casts Urine Mucus Urine Other Ur Culture Indicated? Urine Glucose Documented by User: Lia Dent, DO 04/03/20 20:48 Assessment and Plan Assessment and plan (1) SBO (small bowel obstruction): Status: Acute Assessment and plan: pt seen and examined. Pt slept most of the day and says she feels much better. SHe has good BS and has had a BM. no more pain or nausea. She is hungry and would like to try clears. She has been walking. cont conservative medical management. I did d/w her case w/ Dr. Horne- if she requires any further surgery, she would need to go down to [facility].
[2020-04-03 08:04] LABS: Iron 52 ug/dL (50-170); Total Iron Binding Capacity 371 ug/dL (250-450); Transferrin Sat 14 % (15-50)
[2020-04-03] MEDS: Ondansetron 4 MG/2 ML VIAL IVP (08:11)
[2020-04-03 08:23] LABS: Folate > 20.0 ng/mL (8.6-20.0)
--- NOTE | 2020-04-03 08:32 | PDOC.CMIN ---
- If Service Date Differs Date of service: 04/03/20 Time of Service: 08:32 Care Management Initial Assess REASON FOR HOSPITALIZATION:: SBO PAST MEDICAL HISTORY/PAST SURGICAL HISTORY:: Medical History . Colovaginal fistula. Depression. GERD (gastroesophageal reflux disease). Hypercholesterolemia. Hypertension. Incisional hernia. Infertility, female. Intestinal anastomotic leak. Migraine. Ovarian cyst, left. SBO (small bowel obstruction). Small bowel obstruction due to adhesions. Ventral hernia. Surgical History . Abdominal hysterectomy. Appendectomy. Arthroplasty of knee. right. Colectomy. and removal of left ovarian cyst. 2015. Colostomy. 2015. 01/23/16 diverting transverse loop colostomy Dr Camargo. colostomy takedown and MIKA (11/14/15). colostomy takedown and MIKA (07/22/17). colovaginal fistula and abd wall hernia (01/23/16). hernia abdominal wall repair (01/23/16). Dr Camargo. Oophrectomy, Both. Reduction mammoplasty. Right subclavian vein triple lumen central line placement (01/23/16). by Dr Horne, access needed for colovaginal fistula repair. Rotator Cuff Repair. left shoulder. Sigmoidoscopy (05/28/17). Tonsillectomy and adenoidectomy. transforaminal nerve root block (04/27/14). Dr White. steroid injection PREVIOUS FUNCTIONAL STATUS/SOCIAL/FAMILY SUPPORTS:: Debo lives in a single family home in [place] with her friend Oz Wood. She has one adult child who lives in [place]. 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 She is independent at baseline. CURRENT FUNCTIONAL STATUS:: Debo was sitting up in bed when CM met with her. She was pleasant and agreeable to conversation. 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 She has had many surgeries over the years, usually for a lysis of adhesions. ADVANCE DIRECTIVES:: on file- Oz Wood agent Has patient been provided with info about the portal/API?: Yes Did the patient sign up for the portal?: Yes (previously) CODE STATUS:: Full Code INSURANCE COVERAGE / FINANCIAL ISSUES:: [employer] Medicare CURRENT HOME/COMMUNITY SERVICES/EQUIPMENT:: none currently PRIMARY CARE PHYSICIAN:: Kristen Cline POTENTIAL DISCHARGE NEEDS:: Follow up with surgeon, PCP and discharge plan of care PATIENT/FAMILY EDUCATION NEEDS:: Discharge plan, limitations, follow up plan, Ask Me Three TRANSPORTATION:: via private vehicle with Oz PLAN:: Debo will likely be discharged home with no new services. She will follow up with her community providers and discharge plan of care. CM will continue to support patient, family and discharge planning needs.
[2020-04-03 08:34] LABS: C-Reactive Protein 1.95 mg/dL (0.0-0.3)
[2020-04-03] MEDS: Losartan 50 MG TAB PO (08:34)
[2020-04-03] MEDS: Pantoprazole 40 MG VIAL IVP (08:34)
[2020-04-03 08:52] VITALS: BP 154/86; PULSE 80; RESP 20; TEMP 36.8
--- NOTE | 2020-04-03 11:21 | NUR.NOTE ---
Nursing Note: Patient had upper and lower Left quadrant ABD pain rated 6-8.5 on 1-10 pain scale received hydromorphne0.5 mg in 50cc of NS over15 minutes.After 30minutespatientstatedthat shewas in lesspainandthatshe was not nauseated by the medication.
[2020-04-03 15:30] VITALS: BP 124/67; PULSE 74; RESP 18; TEMP 36.4; O2SAT 97
--- NOTE | 2020-04-03 16:12 | CHAPLAIN ---
Debo was sitting up in bed when I visited. 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 Debo said she was last hospitalized a year and a half ago. Her medical issues have been ongoing. Debo lives in [place] with her friend Oz. He likely won't be into visit, she said. Although she may ask him to drop off her ballot as she hasn't voted yet. Debo's daughter lives in [place] and they were scheduled to meet in [place] this past weekend, but her daughter's flight was cancelled, then Debo began not feeling well. I'll continue to visit.
[2020-04-03] MEDS: Enoxaparin 40 MG/0.4 ML SYR SC (17:23)
[2020-04-03 23:05] VITALS: BP 145/76; PULSE 75; RESP 17; TEMP 37.1; O2SAT 95
[2020-04-04] MEDS: ACETAMINOPHEN 1,000 MG/100 ML BTL 400 MG IVPB (03:24)
[2020-04-04] MEDS: Ketorolac 15 MG/ML VIAL IVP ×2 (03:25→09:59)
[2020-04-04 07:41] VITALS: BP 145/76; PULSE 72; RESP 20; TEMP 36.5; O2SAT 98
[2020-04-04] MEDS: Losartan 50 MG TAB PO (07:47)
[2020-04-04] MEDS: Pantoprazole 40 MG VIAL IVP (07:47)
--- NOTE | 2020-04-04 09:12 | W.PM.PROGNOT ---
Documented by User: KENDRA Kam 04/04/20 09:15 Date of Service Date of service: 04/04/20 Time of Service: 09:12 Assessment and Plan Assessment and plan (1) SBO (small bowel obstruction): Status: Acute Assessment and plan: Patient is feeling much better this morning. No abdominal pain (+) bowel sounds Will progress diet to a soft diet and see how this is tolerated Continue ambulation and activity out of bed. P// Progress diet. Subjective Subjective Interval history since last seen: Patient is feeling much better this morning. She reports that she has been passing flatus and has had bowel movements. She reports tolerating the clear liquid diet well. Denies having any abdominal pain, nausea or vomiting. Exam Const General: cooperative, healthy appearing and comfortable Orientation: alert and oriented x3 Resp Effort & Inspection: normal respiratory effort, no audible wheezes and no cough GI Inspection: normal to inspection Palpation: soft, no guarding and nontender Auscultation: normal bowel sounds Objective Last Vital Signs Temp 36.5 C 04/04/20 07:41 Pulse 72 04/04/20 07:41 Resp 20 04/04/20 07:41 BP 145/76 H 04/04/20 07:41 Pulse Ox 98 04/04/20 07:41 Documented by User: Sariah Horne MD 04/04/20 11:02
[2020-04-04] MEDS: Normal Saline Flush 10 ML SYR IVP (09:59)
--- NOTE | 2020-04-04 10:12 | RESPIRATORY ---
Spoke with Nuria Baker concerning patients medical history of MILLER. Was informed that patient has an oral appliance device to treat her sleep disorder. Pt reported that she has not used device in a long time and no longer uses it. Dr. Dent was informed and patients Bipap order was D/C yesterday.
--- NOTE | 2020-04-04 11:06 | W.PM.DS.N ---
Date of service: 04/04/20 DS: Diagnosis Discharge Diagnosis (1) SBO (small bowel obstruction): Status: Acute Discharge Plan Disposition Patient Disposition: HOME Condition: Serious Discharge Details Reason For Visit: BOWEL OBSTRUCTION Admit Date/Time: 04/02/20 17:13 Admit Provider: Lia Dent Attending Provider: Lia Dent Primary Care Provider: Kristen Cline Hospital Course Hospital Course: Debo was admitted for another SBO obstruction on Friday night. She was kept NPO until the afternoon on 04/03/2020. She startd passing flatus and having soft formed BM's. Her nausea and pain have subsided. She has tolerated a clear liquid diet. Diet was advanced to a soft diet which she tolerated without increase in pain or nausea. She is discharged home on no new medications. Stay on a soft, low fiber diet for a few days and then advance to a normal diet as tolerated. Remember to stay well hydrated. Patient doesn't need a follow up with surgery or her PCP. Home Meds and New Rx's Prescriptions: Continued Shingrix (PF) 50 mcg/0.5 mL suspension for reconstitution 0.5 ml IM ONCE Qty: 1 RF: 1 fluticasone propionate 50 mcg/actuation spray,suspension 50 mcg NS DAILY PRN (Reason: allergy symptoms) Qty: 1 RF: 5 aspirin [Aspirin Low-Strength] 81 MG tablet,chewable 81 mg PO DAILY Qty: 100 RF: 11 losartan-hydrochlorothiazide 50-12.5 mg tablet 1 tab PO DAILY Qty: 90 RF: 3 estradiol 0.5 mg tablet 0.5 mg PO DAILY Qty: 90 RF: 3 dicyclomine 10 mg capsule 20 mg PO TID Qty: 90 RF: 3 omeprazole 20 mg capsule,delayed release(DR/EC) 20 mg PO DAILY Qty: 90 RF: 3 melatonin-pyridoxine (vit B6) 1 TAB tablet 2 tab PO HS PRNRF: 0 acetaminophen [Tylenol] 325 MG tablet 650 mg PO Q6H PRN PRNRF: 0 Discharge Instructions Activity:: Activity as Tolerated Equipment/Supplies:: No Equipment Needed Diet:: As Tolerated Discharge Orders Discharge Orders: Discharge Order (Routine); Ordered 04/04/20 Ordered By: Sariah Horne DS: Summary Status at Discharge Functional status at discharge: independent ambulation Overall status at discharge: patient is back to baseline Mental Status: mental status grossly normal Speech and Movement: speech and movement normal Mood: congruent mood Affect: normal affect Time Spent with Patient providing and/or coordinating discharge services: Less than 30 minutes Exam Resp Effort & Inspection: normal respiratory effort Cardio Rate: regular rate Rhythm: regular rhythm GI Palpation: soft, no hepatosplenomegaly and nontender Auscultation: normal bowel sounds Psych Mental Status: mental status grossly normal Speech and Movement: speech and movement normal Mood: congruent mood Affect: normal affect DS: Data Vitals/I&O Vitals and I&O: Vital Signs Temperature 97.7 F 04/04/20 07:41 Temperature Source Tympanic 04/04/20 07:41 Pulse 72 04/04/20 07:41 Pulse Rhythm Regular 04/04/20 07:45 Respiratory Rate 04/04/20 07:41 Respiratory Effort Non-Labored 04/04/20 07:45 Respiratory Depth Normal 04/04/20 07:45 Respiratory Pattern Normal 04/04/20 07:45 Blood Pressure 145/76 H 04/04/20 07:41 Blood Pressure Position Sitting 04/02/20 14:52 Pulse Oximetry 98 04/04/20 07:41 Oxygen Delivery Method Room Air 04/04/20 07:41 Oxygen Flow Rate 0 04/04/20 07:41 Pain Level 0 04/04/20 07:41 Intake & Output 04/03/20 04/03/20 04/04/20 11:59 23:59 11:59 Intake Total 2050 / 3400 1350 / 3400 400 / 400 Balance 2050 / 3400 1350 / 3400 400 / 400 Intake: IV 2050 / 3150 1100 / 3150 Oral 250 / 250 400 / 400 Other: Urine Color Yellow Yellow Urine Appearance Clear Clear Clear Stool Size Small Moderate Stool Characteristics Liquid Soft Brown Voiding Methods Toilet Toilet [facility] Medical History Anemia Colovaginal fistula Depression GERD (gastroesophageal reflux disease) Hypercholesterolemia Hypertension Incisional hernia Infertility, female Intestinal anastomotic leak Migraine Ovarian cyst, left SBO (small bowel obstruction) SBO (small bowel obstruction) Small bowel obstruction due to adhesions Ventral hernia Surgical History Abdominal hysterectomy Appendectomy Arthroplasty of knee right Colectomy and removal of left ovarian cyst 2015 Colostomy 201401/23/16 diverting transverse loop colostomy Dr Camargo colostomy takedown and MIKA (11/14/15) colostomy takedown and MIKA (07/22/17) colovaginal fistula and abd wall hernia (01/23/16) hernia abdominal wall repair (01/23/16) Dr Camargo Oophrectomy, Both Reduction mammoplasty Right subclavian vein triple lumen central line placement (01/23/16) by Dr Horne, access needed for colovaginal fistula repair Rotator Cuff Repair left shoulder Sigmoidoscopy (05/28/17) Tonsillectomy and adenoidectomy transforaminal nerve root block (04/27/14) Dr White steroid injection Family History Mother , Alzheimers Tuberculosis Hyperlipidemia Breast cancer Father Heart disease Other Diabetes Ovarian cancer Social History Smoking/Tobacco Use Status: Never Smoking risk assessment performed?: Yes Alcohol Intake: current Alcohol Intake frequency: a few times a week Alcohol type: wine Drug use: Never Substance use type: does not use Household members: significant other Housing: house Number of Children: 1 number of grandchildren: 0 Communication Needs: Corrective Lenses 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 [employer] 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: female What is your relationship status?: living with partner Panel score (0-1 are the most socially isolated patients): 1 What type of physical activity do you participate in: regular exercise and other Details: physically active daily Seatbelt use: always 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
--- NOTE | 2020-04-04 13:35 | PDOC.CMDIS ---
- If Service Date Differs Date of service: 04/04/20 Time of Service: 13:35 LACE Index Scoring Tool - Questions: Length of Stay (in days): 2 Acuity (Admit via E.D.?): Yes E.D. Visits: 1 - Answers: Total Score: 6 Risk of Readmission: Low Risk Care Management Discharge Reason for Hospitalization: SBO Discharge Plan: Debo will be discharged home with no new services. She will follow up with her PCP and surgeon and transport with [facility] via private vehicle. Patient/Family Education Needs: Discharge plan, limitations, follow up plan, Ask Me Three.
[2020-04-04 15:14] LABS: SARS-CoV-2 RNA Source Nasopharynx
[2020-04-04 15:15] LABS: SARS-CoV-2 RNA Not Detected (NotDetected)
[2020-04-04 15:44] VITALS: BP 125/72; PULSE 71; RESP 18; TEMP 36.6; O2SAT 98
== END 2020-04-04 16:05 | disposition home or self-care (01) ==
LOC: ER 17:45 → MS 17:47
PROVIDERS: Physician Assistant; Admitting Provider Surgery; Emergency Provider Physician Assistant; PCP Internal Medicine; Visit Provider Surgery
DX: K56.609 Unspecified intestinal obstruction, unspecified as to partial versus complete obstruction (principal); G47.33 Obstructive sleep apnea (adult) (pediatric); K21.9 Gastro-esophageal reflux disease without esophagitis; Z11.59 Encounter for screening for other viral diseases; I10 Essential (primary) hypertension; D64.9 Anemia, unspecified; F32.9 Major depressive disorder, single episode, unspecified; Z90.49 Acquired absence of other specified parts of digestive tract; Z98.0 Intestinal bypass and anastomosis status
CPT/HCPCS: 36415; 80053; 83690; 96361; 96374; 96375; 99222; 99232; 99238; 99285; J1650; U0003; 74018; 74177; 81003; 81015; 82728; 82746; 83540; 83550; 83735; 85025; 86140; 99284; G0378; J0131; J1885; J2405; J3490

== ENCOUNTER 2020-07-18 11:29 | Inpatient (IN) | payer OTHER, MEDICARE, SELFPAY ==
[2020-07-18] VITALS (120 sets, daily range): BP systolic 118–156; BP diastolic 58–77; PULSE 81–100; RESP 15–22; TEMP 36.3–37.8; O2SAT 74–100
--- NOTE | 2020-07-18 11:29 | W.ED.GENAD ---
Discharge Plan Disposition Patient Disposition: [facility] INPATIENT Condition: Stable Discharge Details Clinical Impression: Small bowel obstruction Primary Care Provider: Kristen Cline ED Provider: Radha Velazquez Home Meds and New Rx's Prescriptions: No Action Shingrix (PF) 50 mcg/0.5 mL suspension for reconstitution 0.5 ml IM ONCE Qty: 1 RF: 1 fluticasone propionate 50 mcg/actuation spray,suspension 50 mcg NS DAILY PRN (Reason: allergy symptoms) Qty: 1 RF: 5 estradiol 0.5 mg tablet 0.5 mg PO DAILY Qty: 90 RF: 3 aspirin [Aspirin Low-Strength] 81 MG tablet,chewable 81 mg PO DAILY Qty: 100 RF: 11 losartan-hydrochlorothiazide 50-12.5 mg tablet 1 tab PO DAILY Qty: 90 RF: 3 dicyclomine 10 mg capsule 20 mg PO TID Qty: 90 RF: 3 omeprazole 20 mg capsule,delayed release(DR/EC) 20 mg PO DAILY Qty: 90 RF: 3 acetaminophen [Tylenol] 325 MG tablet 650 mg PO Q6H PRN PRNRF: 0 Medical Decision Making 1130 --- 70-year-old female with a history of hernia repair, hysterectomy, appendectomy, colostomy, multiple bowel obstructions with resection presents for abdominal pain and vomiting since yesterday consistent with previous bowel obstructions. Patient appears uncomfortable but nontoxic. She is afebrile. Her abdomen is soft but tender in periumbilical region. Suspect most likely small bowel obstruction. Will place an IV, screening labs, CT abdomen and pelvis. She states she cannot take morphine but has tolerated Dilaudid in the past. Will give Dilaudid and Zofran and fluids and reassess 1320 -- Labs and imaging reviewed. White blood cell count 11. Potassium 3.3. Troponin negative. Lipase negative. CT abdomen and pelvis consistent with small bowel obstruction. General surgery paged and she is currently in a procedure. Patient reassessed and she is complaining of return of pain and nausea. Will give another dose of Dilaudid and Zofran. 1400 --Case discussed with Dr. Dent who accepts patient for admission. Would like NG tube. Patient is agreeable. Pain is improved after Dilaudid. She is hemodynamically stable. Imaging Data Radiologic Study: Radiologist's impression: CT ABDOMEN PELVIS W INDICATION: periumbilical abd pain, h/o sbo, r/o sbo. COMPARISON: CT CT ABDOMEN PELVIS W from 04/02/2020 TECHNIQUE: FINDINGS: CT examination of the abdomen and pelvis was performed with a bolus infusion of 100 cc of Omnipaque 350. Images obtained through the lung bases are unremarkable. The liver is unremarkable in appearance except for 2 small presumed hepatic cysts, unchanged from prior studies.. Gallbladder and bile ducts are CT normal. Pancreas appears normal. Spleen is unremarkable in appearance. Adrenals appear normal. The kidneys are unremarkable with no evidence of hydronephrosis, nephrolithiasis, or renal mass.. Urinary bladder unremarkable. Abdominal aorta is of normal diameter and no major vascular abnormality is seen. No abdominal wall hernia. No abdominal or pelvic adenopathy. HARBOR TUG CAPTAIN structures unremarkable for age, atrophic or absent uterus period. Appendix is normal. No evidence of diverticulitis. There are multiple markedly dilated loops small bowel, there is an apparent transition point located in the pelvis anteriorly, this is at the level of the mid to distal small bowel. Distal portion of the ileum is nondistended. Colon contains small to moderate amount of fecal material. Multiple bowel anastomoses are noted. IMPRESSION: Findings consistent with small-bowel obstruction at the level of the mid to distal small bowel., There is some fecal material in the colon and this may represent early or partial small bowel obstruction. Appropriate follow-up studies recommended. Lab Data Lab results reviewed: Yes I reviewed the patient's lab results. Labs: Laboratory Tests Range/Units 07/18/20 07/18/20 11:35 11:35 WBC (4.4-10.8) 10^3/uL 11.97 H RBC (3.93-5.22) 10^6/uL 4.58 Hgb (11.2-15.7) g/dL 11.2 Hct (36.0-46.0) % 36.2 MCV (80-95) fL 79.0 L MCH (27.0-33.0) pg 24.5 L MCHC (32.0-36.0) % 30.9 L RDW (11.7-14.6) % 16.8 H Plt Count (130-400) 10^3/uL 482 H MPV (8.0-11.0) fL 10.3 Immature Gran % 0.4 Neutrophils % 93.6 Lymphocytes % 3.8 Monocytes % 1.9 Eosinophils % 0.0 Basophils % 0.3 Nucleated RBC % % 0 Absolute Neutrophils (1.2-6.7) 10^3/uL 11.20 H Absolute Lymphocytes (1.2-3.4) 10^3/uL 0.45 L Absolute Monocytes (0.1-0.8) 10^3/uL 0.23 Absolute Eosinophils (0.0-0.7) 10^3/uL 0.00 Absolute Basophils (0.0-0.2) 10^3/uL 0.04 Sodium (136-145) mmol/L 140 Potassium (3.5-5.1) mmol/L 3.3 L Chloride (98-107) mmol/L 101 Carbon Dioxide (21.0-32.0) mmol/L 25.9 Anion Gap (3-11) mmol/L 13.1 H BUN (7-18) mg/dL 19 H Creatinine (0.55-1.02) mg/dL 1.1 H Estimated GFR/1.73 m2 (mL/min/1.73m2) 49.25 Glucose (74-106) mg/dL 152 H Calcium (8.5-10.1) mg/dL 9.4 Magnesium (1.8-2.4) mg/dL 1.9 Total Bilirubin (0.2-1.0) mg/dL 0.5 AST (15-37) U/L 16 ALT (14-59) U/L 21 Alkaline Phosphatase (46-116) U/L 93 Troponin I (<0.06) ng/mL < 0.05 Total Protein (6.4-8.2) g/dL 7.9 Albumin (3.4-5.0) g/dL 3.9 Lipase (73-393) U/L 98 HPI General Mode of arrival: ambulatory. Date/Time Provider Initiated Documentation: 07/18/20 11:43. Limitations to Documentation: no limitations. Information obtained by: patient. HPI Narrative: Patient is a 70-year-old female with a history of hysterectomy, appendectomy, hernia repair, colostomy, multiple small bowel obstructions with resection presents for abdominal pain and vomiting since yesterday consistent with her previous small bowel obstruction. Patient states the pain started yesterday evening and is intermittent and sharp and in the periumbilical region. States the pain is currently 8/10. She states she vomited a large amount this morning which is mainly bile. She admits to nausea currently. She states her last bowel movement was at 3 AM this morning and was loose and brown. She denies any fever, urinary symptoms, recent travel, recent sick contacts or recent antibiotics. She states her last bowel obstruction was this past April a few months ago which was treated medically. She states her last hernia repair was January 2019 at [facility]. Related Data Home Medications Medication Instructions Recorded Confirmed aspirin [Aspirin Low-Strength] 81 mg PO DAILY #100 tab 11/10/12 07/18/20 acetaminophen [Tylenol] 650 mg PO Q6H PRN PRN tab 07/25/17 07/18/20 varicella-zoster glycoE [id number] 0.5 ml IM ONCE #1 each 07/21/19 07/18/20 adj(PF) 50 mcg/0.5 mL IM susp, kit losartan 50 mg-hydrochlorothiazide 1 tab PO DAILY #90 tab 07/27/19 07/18/20 12.5 mg tablet dicyclomine 10 mg capsule 20 mg PO TID #90 tab-cap 11/09/19 07/18/20 omeprazole 20 mg capsule,delayed 20 mg PO DAILY #90 cap 12/14/19 07/18/20 release fluticasone propionate 50 50 mcg NS DAILY PRN #1 inh 03/15/20 07/18/20 mcg/actuation nasal spray,suspension estradiol 0.5 mg tablet 0.5 mg PO DAILY #90 tab 05/11/20 05/11/20 Previous Rx's Medication Instructions Recorded acetaminophen [Tylenol] 650 mg PO Q6H PRN PRN tab 07/25/17 varicella-zoster glycoE [id number] 0.5 ml IM ONCE #1 each 07/21/19 adj(PF) 50 mcg/0.5 mL IM susp, kit losartan 50 mg-hydrochlorothiazide 1 tab PO DAILY #90 tab 07/27/19 12.5 mg tablet dicyclomine 10 mg capsule 20 mg PO TID #90 tab-cap 11/09/19 omeprazole 20 mg capsule,delayed 20 mg PO DAILY #90 cap 12/14/19 release fluticasone propionate 50 50 mcg NS DAILY PRN #1 inh 10/14/20 mcg/actuation nasal spray,suspension estradiol 0.5 mg tablet 0.5 mg PO DAILY #90 tab 05/11/20 Allergies Allergy/AdvReac Type Severity Reaction Status Date / Time sumatriptan Allergy Severe Anaphylaxsi Verified 07/17/20 13:35 s ciprofloxacin Allergy Unknown Skin Rash Verified 07/17/20 13:35 morphine AdvReac Severe Nausea Verified 07/17/20 13:35 doxycycline monohydrate AdvReac Intermediate vomiting Verified 07/17/20 13:35 [From Vibramycin] Penicillins AdvReac Intermediate Nausea Verified 07/17/20 13:35 tramadol AdvReac Intermediate dizzyness, Verified 07/17/20 13:35 faintness General RAHEL: 3 Review of Systems All systems reviewed & are unremarkable except as noted in HPI and below Constitutional Constitutional: Reports as per HPI, Denies chills and Denies fever(s) Eyes Eyes: Denies blurry vision ENT Ears, Nose, Mouth, and Throat: Denies dizziness, Denies sore throat and Denies throat swelling Cardiovascular Cardiovascular: Denies chest pain and Denies dyspnea Respiratory Respiratory: Denies cough and Denies dyspnea Gastrointestinal Gastrointestinal: Reports abdominal pain, Denies diarrhea and Reports vomiting Genitourinary Genitourinary: Denies hematuria and Denies dysuria Musculoskeletal Musculoskeletal: Denies back pain and Denies numbness Integumentary/Breasts Skin/Breast: Denies lesions and Denies rash Neurologic Neurologic: Denies dizziness, Denies localized weakness and Denies numbness Allergic/Immunologic Allergic/Immunologic: Denies throat swelling [facility] Medical History Anemia Colovaginal fistula Depression GERD (gastroesophageal reflux disease) Hypercholesterolemia Hypertension Incisional hernia Infertility, female Intestinal anastomotic leak Migraine Ovarian cyst, left SBO (small bowel obstruction) SBO (small bowel obstruction) Small bowel obstruction due to adhesions Ventral hernia Surgical History Abdominal hysterectomy Appendectomy Arthroplasty of knee right Colectomy and removal of left ovarian cyst 2014 Colostomy 201401/23/16 diverting transverse loop colostomy Dr Camargo colostomy takedown and MIKA (11/14/15) colostomy takedown and MIKA (07/22/17) colovaginal fistula and abd wall hernia (01/23/16) hernia abdominal wall repair (01/23/16) Dr Camargo Oophrectomy, Both Reduction mammoplasty Right subclavian vein triple lumen central line placement (01/23/16) by Dr Horne, access needed for colovaginal fistula repair Rotator Cuff Repair left shoulder Sigmoidoscopy (05/28/17) Tonsillectomy and adenoidectomy transforaminal nerve root block (04/27/14) Dr White steroid injection Family History Mother , Alzheimers Tuberculosis Hyperlipidemia Breast cancer Father Heart disease Other Diabetes Ovarian cancer Social History Smoking/Tobacco Use Status: Never Smoking risk assessment performed?: Yes Alcohol Intake: current Alcohol Intake frequency: a few times a week Alcohol type: wine Drug use: Never Substance use type: does not use Household members: significant other Housing: house Number of Children: 1 number of grandchildren: 0 Communication Needs: Corrective Lenses 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 [employer] 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: female What is your relationship status?: living with partner Panel score (0-1 are the most socially isolated patients): 1 What type of physical activity do you participate in: regular exercise and other Details: physically active daily Seatbelt use: always 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 Working smoke detector in home: Yes Fire extinguisher in home: Yes Carbon monox detector in home: Yes Do you feel safe at home: Yes Do you feel safe in your relationship?: Yes Female Reproductive History Menstrual Menopause type: surgical Exam Const General: cooperative, healthy appearing and no acute distress [facility] Head: normal to inspection Face and sinus: normal facial exam Eyes General: appearance normal, both eyes and all related structures EOM: EOM intact bilaterally Neck Neck: normal visual inspection and No submandibular swelling Lymphatic: no lymphadenopathy noted Chest Chest: normal inspection of the chest and no tenderness Resp Effort & Inspection: normal respiratory effort and able to speak in complete sentences Auscultation: clear to auscultation bilaterally Cardio Rate: regular rate Rhythm: regular rhythm GI Inspection: normal to inspection Palpation: soft, not firm, not rigid and tender periumbilically Auscultation: normal bowel sounds Skin General skin exam: no rashes or lesions noted Neuro General: patient alert, patient awake and patient oriented x3 Cognition: normal cognition Speech: speech normal Motor: muscle tone normal throughout Sensory Exam: no sensory deficits noted Extrem General: normal to inspection, full ROM, capillary refill normal, no calf tenderness bilaterally and no edema Psych Appearance: grossly normal Mental Status: mental status grossly normal Speech and Movement: speech and movement normal Affect: normal affect
[2020-07-18 11:44] LABS: Abs Immature Grans 0.05 10^3/uL (0.0-0.06); Absolute Basophil Count 0.04 10^3/uL (0.0-0.2); Absolute Monocyte Count 0.23 10^3/uL (0.1-0.8); Basophils % 0.3; HCT 36.2 % (36.0-46.0); HGB 11.2 g/dL (11.2-15.7); Immature Grans % 0.4; Lymphocytes % 3.8; MCH 24.5 pg (27.0-33.0); MCHC 30.9 % (32.0-36.0); MPV 10.3 fL (8.0-11.0); Monocytes % 1.9; Neutrophils % 93.6; Nucleated RBC 0 %; Platelet Count 482 10^3/uL (130-400); RBC 4.58 10^6/uL (3.93-5.22); RDW 16.8 % (11.7-14.6); RDW-SD 47.9 fL; WBC 11.97 10^3/uL (4.4-10.8)
[2020-07-18 11:45] LABS: Absolute Lymphocyte Count 0.45 10^3/uL (1.2-3.4)
[2020-07-18] MEDS: Normal Saline 500 ML 750 ML IV (11:54)
[2020-07-18] MEDS: HYDROmorphone 2 MG/ML VIAL 0.5 MG IVP (12:00)
[2020-07-18] MEDS: Ondansetron 4 MG/2 ML VIAL IVP ×3 (12:00→21:24)
--- NOTE | 2020-07-18 12:00 | DI.CT_ITS ---
EXAM: CT ABDOMEN PELVIS W INDICATION: periumbilical abd pain, h/o sbo, r/o sbo. COMPARISON: CT CT ABDOMEN PELVIS W from 04/02/2020 TECHNIQUE: FINDINGS: CT examination of the abdomen and pelvis was performed with a bolus infusion of 100 cc of Omnipaque 3 50. Images obtained through the lung bases are unremarkable. The liver is unremarkable in appearance except for 2 small presumed hepatic cysts, unchanged from [place] or studies.. Gallbladder and bile ducts are CT normal. Pancreas appears normal. Spleen is unremarkable in appearance. Adrenals appear normal. The kidneys are unremarkable with no evidence of hydronephrosis, nephrolithiasis, or renal mass.. Ur inary bladder unremarkable. Abdominal aorta is of normal diameter and no major vascular abnormality is seen. No abdominal wall hernia. No abdominal or pelvic adenopathy. EQUIPMENT DETAILER structures unremarkable for age, atrophic or absent uterus period. Appendix is normal. No evidence of diverticulitis. There are multiple markedly dilated loops small bowel, there is an apparent transition point located in the pelvis anteriorly, this is at the level of the mid to distal small bowel. Distal portion of t he ileum is nondistended. Colon contains small to moderate amount of fecal material. Multiple bowel anastomoses are noted. IMPRESSION: Findings consistent with small-bowel obstruction at the level of the mid to distal small bowel., Ther e is some fecal material in the colon and this may represent early or partial small bowel obstruction . Appropriate follow-up studies recommended. RADIATION DOSE DELIVERED: 780.41mGy.cm Total DLP 780.41mGy.cm Total DLP
[2020-07-18 12:05] LABS: ALT 21 U/L (14-59); AST 16 U/L (15-37); Albumin 3.9 g/dL (3.4-5.0); Alkaline Phosphatase 93 U/L (46-116); Anion Gap 13.1 mmol/L (3-11); BUN 19 mg/dL (7-18); Bilirubin, Total 0.5 mg/dL (0.2-1.0); CO2 25.9 mmol/L (21.0-32.0); CREATININE 1.1 mg/dL (0.55-1.02); Calcium 9.4 mg/dL (8.5-10.1); Chloride 101 mmol/L (98-107); Estimated GFR 49.25 (mL/min/1.73m2); Glucose 152 mg/dL (74-106); Lipase 98 U/L (73-393); Magnesium 1.9 mg/dL (1.8-2.4); Potassium 3.3 mmol/L (3.5-5.1); Sodium 140 mmol/L (136-145); Total Protein 7.9 g/dL (6.4-8.2)
[2020-07-18 12:06] LABS: Troponin I < 0.05 ng/mL (<0.06)
[2020-07-18] MEDS: Omnipaque 350 MG/ML 100 ML BTL IJ (13:08)
[2020-07-18] MEDS: Normal Saline - Diluent 50 ML VIAL IV (13:09)
[2020-07-18] MEDS: Normal Saline 500 ML IV (13:37)
[2020-07-18] MEDS: HYDROmorphone 2 MG/ML VIAL 1 MG IVP ×2 (13:51→21:23)
[2020-07-18 14:09] LABS: Bilirubin Negative (Negative); Blood Small (Negative); Clarity Sl Cloudy (Clear); Glucose Negative (Negative); Ketones Trace mg/dL (Negative); Leukocyte Esterase Negative (Negative); Nitrite Positive (Negative); Urobilinogen 0.2 EU/dL (Up TO 0.2)
--- NOTE | 2020-07-18 14:15 | DI.RAD_ITS ---
EXAM: XR PORTABLE CHEST AP POST LINE CLINICAL HISTORY: confirm ngt placement TECHNIQUE: COMPARISON: CR XR ABD FLAT UPRIGHT PA CHEST from 08/16/2018 FINDINGS: Portable AP chest at 1435 hours. The heart is not enlarged. Lungs are clear and well expanded. The re is an NG tube which appears to terminate in the gastric fundus. Possibility that the tube is at t he gastroesophageal junction or in the distal esophagus is not excluded, tube should probably be adva nced. IMPRESSION: RADIATION DOSE DELIVERED: Total DLP
[2020-07-18 14:16] LABS: Bacteria Many HPF (Negative); C & S Indicated? Yes; Casts Negative LPF (Negative); Crystals Negative HPF (Negative); Epithelial Cells Few HPF (Negative); Mucus Trace (Negative); WBC 0-2 HPF (0-5)
[2020-07-18] MEDS: Lidocaine 2% Jelly 11 ML SYR (14:27)
--- NOTE | 2020-07-18 14:31 | W.PM.HP.N ---
Date of service: 07/18/20 Time of Service: 14:32 Assessment and Plan Assessment and plan (1) Small bowel obstruction: Status: Acute Assessment and plan: -NGT decompression -PPI -pain management -check iron studies. hgb WNL today. Was low in april -supportive care (2) Anemia: Status: Chronic (3) Obstructive sleep apnea syndrome, moderate: Status: Acute (4) GERD (gastroesophageal reflux disease): Status: Chronic (5) Thoracic or lumbosacral neuritis or radiculitis, unspecified: Status: Acute History of Present Illness Consults Consult date: 07/18/20 Requesting physician: Radha Velazquez Narrative: Last Surgery consult 04/02/20: Pt is S/P Hyst for fibroids at age 49. Part of one ovary remains. Had her ostomy repaired 2 yrs ago. 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 [place] [facility] [place] Feels much better and is happy she had the surgery. Pt continues on PO Estradiol 0.5 mg daily. Feels well and wishes to continue. She has been on the ET for 1-15 yrs. We discussed the potential increased risk for breast cancer after the 10 yr time period. Pt acknowledges the risk and wants to continue on the Med. Her Mom did have breast cancer. [place] [facility] [place] 15[place] mesh.underlay intraperitoneal fashion. s/p sigmoid resection adn repair of vaginal fisutla. x2 colostomy's and x2 prior hernias repairs. She had mult. SBO's prior to her hernia repair. This [place] [facility] [place] They spent 2hrs removing the sm B from the hernia sack. They did an intraperitoneal underlay. Pt came into the ED last pm c/o nausea and abdominal pain. She was having profuse diarrhea. No bleeding. She denies trauma or eating anything unsual or any unsual activity or travel. I did review her CT- She does have a mass of small bowel adherent to the mesh on the ant. abdominal wall. Post Sx changes noted. Lg volume of stool. I did review her old Op repots from [facility] as well. 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 Pt present to ED 07/18/20 w/ N/V & abdominal pain. CT reviewed. She is well-known to the surgical service. She states she started having abdominal pain and nausea and bloating last night. She did not eat anything atypical for her, do any unusual activities, or sustain any trauma. She says the abdominal pain she was having in the symptoms she was experiencing, is one of her worst episode yet. At the time I am seeing her, her pain is under much better control. She did have an NG tube placed and she feels much better having had this placed. She has no nausea and minimal pain. She is not passing any gas. She has no peritoneal signs. She has no fevers. On exam she has minimal bowel sounds. Her abdomen is somewhat distended. There is no signs of any recurrent herniations. I did personally review her CT. CT 07/18/20 -Appendix is normal. No evidence of diverticulitis. There are multiple markedly dilated loops small bowel, there is an apparent transition point located in the pelvis anteriorly, this is at the level of the mid to distal small bowel. Distal portion of the ileum is nondistended. Colon contains small to moderate amount of fecal material. Multiple bowel anastomoses are noted. IMPRESSION: Findings consistent with small-bowel obstruction at the level of the mid to distal small bowel., There is some fecal material in the colon and this may represent early or partial small bowel obstruction. Appropriate follow-up studies recommended. Review of Systems All systems reviewed & are unremarkable except as noted in HPI and below PFSH Medical History Anemia Colovaginal fistula Depression GERD (gastroesophageal reflux disease) Hypercholesterolemia Hypertension Incisional hernia Infertility, female Intestinal anastomotic leak Migraine Ovarian cyst, left SBO (small bowel obstruction) SBO (small bowel obstruction) Small bowel obstruction due to adhesions Ventral hernia Surgical History Abdominal hysterectomy Appendectomy Arthroplasty of knee right Colectomy and removal of left ovarian cyst 2014 Colostomy 201401/23/16 diverting transverse loop colostomy Dr Camargo colostomy takedown and MIKA (11/14/15) colostomy takedown and MIKA (07/22/17) colovaginal fistula and abd wall hernia (01/23/16) hernia abdominal wall repair (01/23/16) Dr Camargo Oophrectomy, Both Reduction mammoplasty Right subclavian vein triple lumen central line placement (01/23/16) by Dr Horne, access needed for colovaginal fistula repair Rotator Cuff Repair left shoulder Sigmoidoscopy (05/28/17) Tonsillectomy and adenoidectomy transforaminal nerve root block (04/27/14) Dr White steroid injection Family History Mother , Alzheimers Tuberculosis Hyperlipidemia Breast cancer Father Heart disease Other Diabetes Ovarian cancer Social History Smoking/Tobacco Use Status: Never Smoking risk assessment performed?: Yes Alcohol Intake: current Alcohol Intake frequency: a few times a week Alcohol type: wine Drug use: Never Substance use type: does not use Household members: significant other Housing: house Number of Children: 1 number of grandchildren: 0 Communication Needs: Corrective Lenses 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: female What is your relationship status?: living with partner Panel score (0-1 are the most socially isolated patients): 1 What type of physical activity do you participate in: regular exercise and other Details: physically active daily Seatbelt use: always Drive intox or ride w/intox driver material handler: No Working smoke detector in home: Yes Fire extinguisher in home: Yes Carbon monox detector in home: Yes Do you feel safe at home: Yes Do you feel safe in your relationship?: Yes Female Reproductive History Menstrual Menopause type: surgical Meds Home Medications and Allergies Home Medications Medication Instructions Recorded Confirmed Type aspirin [Aspirin Low-Strength] 81 mg PO DAILY #100 tab 11/10/12 07/18/20 History acetaminophen [Tylenol] 650 mg PO Q6H PRN PRN tab 07/25/17 07/18/20 Rx varicella-zoster glycoE [id number] 0.5 ml IM ONCE #1 each 07/21/19 07/18/20 Rx adj(PF) 50 mcg/0.5 mL IM susp, kit losartan 50 mg-hydrochlorothiazide 1 tab PO DAILY #90 tab 07/27/19 07/18/20 Rx 12.5 mg tablet dicyclomine 10 mg capsule 20 mg PO TID #90 tab-cap 11/09/19 07/18/20 Rx omeprazole 20 mg capsule,delayed 20 mg PO DAILY #90 cap 12/14/19 07/18/20 Rx release fluticasone propionate 50 50 mcg NS DAILY PRN #1 inh 03/15/20 07/18/20 Rx mcg/actuation nasal spray,suspension estradiol 0.5 mg tablet 0.5 mg PO DAILY #90 tab 05/11/20 05/11/20 Rx Allergies Allergy/AdvReac Type Severity Reaction Status Date / Time sumatriptan Allergy Severe Anaphylaxsi Verified 07/17/20 13:35 s ciprofloxacin Allergy Unknown Skin Rash Verified 07/17/20 13:35 morphine AdvReac Severe Nausea Verified 07/17/20 13:35 doxycycline monohydrate AdvReac Intermediate vomiting Verified 07/17/20 13:35 [From Vibramycin] Penicillins AdvReac Intermediate Nausea Verified 07/17/20 13:35 tramadol AdvReac Intermediate dizzyness, Verified 07/17/20 13:35 faintness Exam Const General: cooperative, healthy appearing, comfortable, no acute distress, well developed and well groomed Nutritional Appearance: average body habitus and well nourished Orientation: alert, awake and oriented x3 HENMT Head: normal to inspection, normocephalic and atraumatic Ears: hearing grossly normal bilaterally and external ears normal General nose exam: external nose normal Face and sinus: normal facial exam and sinuses nontender Mouth: oral mucosae normal, lip normal, tongue normal and moist mucous membranes Teeth and gingiva: dentition normal Eyes General: appearance normal, both eyes and all related structures Conjunctivae: conjunctivae normal Sclera: sclerae normal Pupils: PERRL Neck Neck: normal visual inspection and full ROM Chest Chest: normal inspection of the chest Resp Effort & Inspection: normal respiratory effort, able to speak in complete sentences, no cough, no nasal flaring, not tachypneic and no use of accessory muscles Auscultation: clear to auscultation bilaterally, no rales, no rhonchi and no wheezes Cardio Jugular venous pressure: no JVD Rate: regular rate Rhythm: regular rhythm GI Inspection: no edema, distended and other (post surgical changes noted. no hernias) Palpation: soft, no masses, nontender and No ascites Auscultation: absent bowel sounds Skin General skin exam: no rashes or lesions noted Trauma: no lacerations or abrasions Neuro General: patient alert, patient oriented x3, oriented, gait normal, moves all extremities, no focal motor deficits and CN's II-XI intact bilaterally Cognition: normal cognition Speech: speech normal Gait: normal gait Motor: muscle tone normal throughout Extrem General: normal to inspection, full ROM and no clubbing, cyanosis or edema Psych Appearance: grossly normal and well kempt Mental Status: mental status grossly normal Speech and Movement: speech and movement normal Affect: normal affect Results Labs Result diagrams: 07/18/20 11:35 07/18/20 11:35 Labs: Laboratory Results - last 24 hr 07/18/20 07/18/20 07/18/20 11:35 11:35 13:50 WBC 11.97 H RBC 4.58 Hgb 11.2 Hct 36.2 MCV 79.0 L MCH 24.5 L MCHC 30.9 L RDW 16.8 H Plt Count 482 H MPV 10.3 Immature Gran % 0.4 Neutrophils % 93.6 Lymphocytes % 3.8 Monocytes % 1.9 Eosinophils % 0.0 Basophils % 0.3 Nucleated RBC % 0 Absolute Neutrophils 11.20 H Absolute Lymphocytes 0.45 L Absolute Monocytes 0.23 Absolute Eosinophils 0.00 Absolute Basophils 0.04 Sodium 140 Potassium 3.3 L Chloride 101 Carbon Dioxide 25.9 Anion Gap 13.1 H BUN 19 H Creatinine 1.1 H Estimated GFR/1.73 m2 49.25 Glucose 152 H Calcium 9.4 Magnesium 1.9 Total Bilirubin 0.5 AST 16 ALT 21 Alkaline Phosphatase 93 Troponin I < 0.05 Total Protein 7.9 Albumin 3.9 Lipase 98 Urine Color Yellow Urine Clarity Sl cloudy Urine pH 6.0 Ur Specific [place] 1.010 Urine Protein Negative Urine Ketones Trace H Urine Blood Small H Urine Nitrite Positive H Urine Bilirubin Negative Urine Urobilinogen 0.2 Ur Leukocyte Esterase Negative Urine RBC 5-10 H Urine WBC 0-2 Ur Epithelial Cells Few Urine Crystals Negative Urine Bacteria Many Urine Casts Negative Urine Mucus Trace Ur Culture Indicated? Yes Urine Glucose Negative Last Vital Signs Temp 36.3 C L 07/18/20 11:18 Pulse 90 07/18/20 13:39 Resp 18 07/18/20 13:39 BP 149/77 H 07/18/20 13:39 Pulse Ox 99 02/16/21 11:18 COVID-19 Screening Have you, or household traveled for leisure in last 14 days?: No Had IN PERSON contact w/suspected or confirmed C-19 person: No
[2020-07-18 15:07] LABS: Source Nasopharynx
[2020-07-18 15:48] LABS: COVID-19 PCR Negative (Negative); Influenza A PCR Negative (Negative); Influenza B PCR Negative (Negative); RSV PCR Negative (Negative)
[2020-07-18] MEDS: Enoxaparin 40 MG/0.4 ML SYR SC (16:05)
[2020-07-18] MEDS: HYDROmorphone 2 MG TAB 1 MG PO ×3 (16:05→21:11)
[2020-07-18] MEDS: Lactated Ringers 1,000 ML 125 ML IV (16:05)
[2020-07-18] MEDS: ACETAMINOPHEN 1,000 MG/100 ML BTL 400 MG IVPB (16:06)
[2020-07-18] MEDS: Normal Saline Flush 10 ML SYR IVP ×3 (16:06→21:25)
[2020-07-18] MEDS: Pantoprazole 40 MG VIAL IVP (18:10)
[2020-07-19] VITALS (45 sets, daily range): BP systolic 109–141; BP diastolic 61–68; PULSE 66–78; RESP 20; TEMP 36.6–37.7; O2SAT 89–99
[2020-07-19] MEDS: HYDROmorphone 2 MG/ML VIAL 1 MG IVP ×2 (02:13→07:04)
[2020-07-19] MEDS: ACETAMINOPHEN 1,000 MG/100 ML BTL 400 MG IVPB (02:14)
[2020-07-19] MEDS: Lactated Ringers 1,000 ML 125 ML IV ×4 (03:00→23:40)
[2020-07-19 06:30] LABS: Abs Immature Grans 0.02 10^3/uL (0.0-0.06); Absolute Basophil Count 0.02 10^3/uL (0.0-0.2); Absolute Lymphocyte Count 1.23 10^3/uL (1.2-3.4); Absolute Monocyte Count 0.78 10^3/uL (0.1-0.8); Absolute Neutrophil Count 7.34 10^3/uL (1.2-6.7); Basophils % 0.2; HCT 28.2 % (36.0-46.0); HGB 8.7 g/dL (11.2-15.7); Immature Grans % 0.2; Lymphocytes % 13.1; MCH 24.8 pg (27.0-33.0); MCHC 30.9 % (32.0-36.0); MCV 80.3 fL (80-95); MPV 10.2 fL (8.0-11.0); Monocytes % 8.3; Neutrophils % 78.2; Nucleated RBC 0 %; RBC 3.51 10^6/uL (3.93-5.22); RDW 17.3 % (11.7-14.6); RDW-SD 50.4 fL; WBC 9.39 10^3/uL (4.4-10.8)
[2020-07-19 06:49] LABS: Diff Comment Diff Reviewed; Platelet Count 384 10^3/uL (130-400)
[2020-07-19 06:50] LABS: Hypochromasia 2+; Polychromasia Present
[2020-07-19] MEDS: Normal Saline Flush 10 ML SYR IVP ×3 (07:04→16:49)
[2020-07-19] MEDS: Ondansetron 4 MG/2 ML VIAL IVP ×2 (07:04→16:48)
--- NOTE | 2020-07-19 07:47 | DI.RAD_ITS ---
EXAM: XR ABDOMEN FLAT UPRIGHT CLINICAL HISTORY: SBO. TECHNIQUE: 2D digital imaging was performed. COMPARISON: CR XR ABDOMEN FLAT PLATE from 04/03/2020 FINDINGS: Supine and upright views reveal an NG tube in the stomach. No free air. There is a single air-fluid level seen on the upright view which is in the upper right iliac fossa. There is no free air subjac ent to the hemidiaphragms on the upright view. Stomach is not distended. Degenerative changes noted in the lower lumbar spine. IMPRESSION: DATA REPOSITORY: RADIATION DOSE DELIVERED:
--- NOTE | 2020-07-19 07:54 | PHA.REVIEW ---
Pharmacy Admission Review - Admission Clinical Review (Last Reviewed 07/18/20 @ 21:58 by Lia Dent DO) Small bowel obstruction (Acute) Obstructive sleep apnea syndrome, moderate (Acute) Thoracic or lumbosacral neuritis or radiculitis, unspecified (Acute 10/14/12) sumatriptan Allergy (Severe, Verified 07/17/20 13:35) Anaphylaxsis ciprofloxacin Allergy (Unknown, Verified 07/17/20 13:35) Skin Rash morphine Adverse Reaction (Severe, Verified 07/17/20 13:35) Nausea doxycycline monohydrate [From Vibramycin] Adverse Reaction (Intermediate, Verified 07/17/20 13:35) vomiting Penicillins Adverse Reaction (Intermediate, Verified 07/17/20 13:35) Nausea tramadol Adverse Reaction (Intermediate, Verified 07/17/20 13:35) dizzyness, faintness Height 5 ft 2 in Weight 60.3 kg SBO - Comments Comments/Follow Ups: Iron panel pending, today's labs pending. Pt has NG tube in place. Abdominal Xray today, not yet reported. Urine culture pending. Afebrile, pain 12/09 - Renal Dosing Renal Dosing: BUN 19 mg/dL (7-18) H 07/18/20 11:35 Creatinine 1.1 mg/dL (0.55-1.02) H 07/18/20 11:35 Medications needing adjustments: Reviewed (CrCl~38ml/min (Watch Lovenox dosing)) - Anticoagulation Anticoagulation: Hgb 8.7 g/dL (11.2-15.7) L D 07/19/20 06:05 Hct 28.2 % (36.0-46.0) L D 07/19/20 06:05 Plt Count 384 10^3/uL (130-400) 07/19/20 06:05 Creatinine 1.1 mg/dL (0.55-1.02) H 07/18/20 11:35 DVT Prohphylaxis: Reviewed Medications: Enoxaparin - Opiate Usage Evaluate Pain Scale/Pains Meds: Reviewed (Pain 12/09, Dilaudid IV and PO) Scheduled Bowel Reg ordered if on Opiates?: No (Pt NPO) - Relevant Labs Sodium 140 mmol/L (136-145) 07/18/20 11:35 Potassium 3.3 mmol/L (3.5-5.1) L 07/18/20 11:35 Chloride 101 mmol/L (98-107) 07/18/20 11:35 Magnesium 1.9 mg/dL (1.8-2.4) 07/18/20 11:35 Morning labs pending, H/H down 8.7/28.2 - DM Control DM Control: Glucose 152 mg/dL (74-106) H 07/18/20 11:35 Insulin Dosing: N/A - Heart Failure/TX Heart Failure/TX: Troponin I < 0.05 ng/mL (<0.06) 07/18/20 11:35 EF%, HILARY's, B-Blockers, Diuretics: Reviewed (Losartan) - BP Control BP Control: Blood Pressure 117/61 Blood Pressure 118/63 If elevated: N/A - Qtc Review If Elevated: N/A - IV to PO Switch IV Medications: Reviewed (Pt NPO, watch for start of more oral meds, Protonix is IV) - Home Meds Home Med List reviewed: Reviewed Relevent Home Meds Not ordered & why?: HCTZ, Omeprazole, Flonase NS, Dicyclomine, ASA, Estradiol
[2020-07-19] MEDS: Pantoprazole 40 MG VIAL IVP (08:13)
--- NOTE | 2020-07-19 09:21 | PDOC.CMIN ---
- If Service Date Differs Date of service: 07/19/20 Time of Service: 09:24 Care Management Initial Assess REASON FOR HOSPITALIZATION:: SBO PAST MEDICAL HISTORY/PAST SURGICAL HISTORY:: Medical History . Colovaginal fistula. Depression. GERD (gastroesophageal reflux disease). Hypercholesterolemia. Hypertension. Incisional hernia. Infertility, female. Intestinal anastomotic leak. Migraine. Ovarian cyst, left. SBO (small bowel obstruction). Small bowel obstruction due to adhesions. Ventral hernia. Surgical History . Abdominal hysterectomy. Appendectomy. Arthroplasty of knee. right. Colectomy. and removal of left ovarian cyst. 2015. Colostomy. 2015. 01/23/16 diverting transverse loop colostomy Dr Camargo. colostomy takedown and MIKA (11/14/15). colostomy takedown and MIKA (07/22/17). colovaginal fistula and abd wall hernia (01/23/16). hernia abdominal wall repair (01/23/16). Dr Camargo. Oophrectomy, Both. Reduction mammoplasty. Right subclavian vein triple lumen central line placement (01/23/16). by Dr Horne, access needed for colovaginal fistula repair. Rotator Cuff Repair. left shoulder. Sigmoidoscopy (05/28/17). Tonsillectomy and adenoidectomy. transforaminal nerve root block (04/27/14). Dr White. steroid injection PREVIOUS FUNCTIONAL STATUS/SOCIAL/FAMILY SUPPORTS:: Debo lives in a single family home in [place] with her friend Oz Wood. She has one adult child who lives in [place]. 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 She is independent at baseline. CURRENT FUNCTIONAL STATUS:: Debo was sitting up in bed when CM met with her. She was pleasant and agreeable to conversation. Debo is well known to this junior technical writer from previous admissions and reported no changes. ADVANCE DIRECTIVES:: On file- Oz Wood agent Has patient been provided with info about the portal/API?: Yes Did the patient sign up for the portal?: Yes (Previously) CODE STATUS:: Full Code INSURANCE COVERAGE / FINANCIAL ISSUES:: [employer] Medicare CURRENT HOME/COMMUNITY SERVICES/EQUIPMENT:: none currently PRIMARY CARE PHYSICIAN:: Kristen Cline POTENTIAL DISCHARGE NEEDS:: Follow up with surgeon, PCP and discharge plan of care PATIENT/FAMILY EDUCATION NEEDS:: Discharge plan, limitations, follow up plan, Ask Me Three ANTICIPATED BARRIERS TO DISCHARGE:: None identified at this time. TRANSPORTATION:: Via private vehicle with Oz PLAN:: Debo will likely be discharged home with no new services. She will follow up with her community providers and discharge plan of care. CM will continue to support patient, family and discharge planning needs.
[2020-07-19 09:27] LABS: Iron 18 ug/dL (50-170); Total Iron Binding Capacity 368 ug/dL (250-450); Transferrin Sat 5 % (15-50)
--- NOTE | 2020-07-19 10:46 | PGE_ITS ---
Date of Service Date of service: 07/19/20 Time of Service: 09:30 Assessment and Plan Assessment and plan (1) Small bowel obstruction: Status: Acute Assessment and plan: -NGT decompression with 700ccs out overnight. -Nausea continues despite use of Zofran -PPI -Abdominal pain continues, however is beign well managed at this time. Activity as tolerated Encourage use of incentive spirometer and deep breathing techniques. Continue with supportive care. (2) Anemia: Status: Chronic (3) Obstructive sleep apnea syndrome, moderate: Status: Acute (4) GERD (gastroesophageal reflux disease): Status: Chronic (5) Thoracic or lumbosacral neuritis or radiculitis, unspecified: Status: Acute Subjective Subjective Interval history since last seen: Patient reports that she continues to have abdominal pain and nausea. She denies passing any flatus. Exam Const General: cooperative and acute distress mild Orientation: alert and oriented x3 Resp Effort & Inspection: normal respiratory effort, no audible wheezes and no cough Objective Last Vital Signs Temp 36.6 C 07/19/20 04:30 Pulse 66 07/19/20 08:02 Resp 18 07/18/20 21:53 BP 110/62 07/19/20 08:02 Pulse Ox 90 L 07/19/20 08:20 Laboratory Results - last 24 hr 07/18/20 07/18/20 07/18/20 11:35 11:35 13:50 WBC 11.97 H RBC 4.58 Hgb 11.2 Hct 36.2 MCV 79.0 L MCH 24.5 L MCHC 30.9 L RDW 16.8 H Plt Count 482 H MPV 10.3 Immature Gran % 0.4 Neutrophils % 93.6 Lymphocytes % 3.8 Monocytes % 1.9 Eosinophils % 0.0 Basophils % 0.3 Nucleated RBC % 0 Absolute Neutrophils 11.20 H Absolute Lymphocytes 0.45 L Absolute Monocytes 0.23 Absolute Eosinophils 0.00 Absolute Basophils 0.04 RBC Morphology Polychromasia Hypochromasia Sodium 140 Potassium 3.3 L Chloride 101 Carbon Dioxide 25.9 Anion Gap 13.1 H BUN 19 H Creatinine 1.1 H Estimated GFR/1.73 m2 49.25 Glucose 152 H Calcium 9.4 Magnesium 1.9 Iron TIBC Transferrin % Sat Total Bilirubin 0.5 AST 16 ALT 21 Alkaline Phosphatase 93 Troponin I < 0.05 Total Protein 7.9 Albumin 3.9 Lipase 98 Urine Color Yellow Urine Clarity Sl cloudy Urine pH 6.0 Ur Specific [place] 1.010 Urine Protein Negative Urine Ketones Trace H Urine Blood Small H Urine Nitrite Positive H Urine Bilirubin Negative Urine Urobilinogen 0.2 Ur Leukocyte Esterase Negative Urine RBC 5-10 H Urine WBC 0-2 Ur Epithelial Cells Few Urine Crystals Negative Urine Bacteria Many Urine Casts Negative Urine Mucus Trace Ur Culture Indicated? Yes Urine Glucose Negative COVID-19 Source SARS-CoV-2 (PCR) Influenza Type A (PCR) Influenza Type B (PCR) RSV (PCR) 07/18/20 07/19/20 07/19/20 14:55 06:05 06:05 WBC 9.39 RBC 3.51 L Hgb 8.7 L D Hct 28.2 L D MCV 80.3 MCH 24.8 L MCHC 30.9 L RDW 17.3 H Plt Count 384 MPV 10.2 Immature Gran % 0.2 Neutrophils % 78.2 Lymphocytes % 13.1 Monocytes % 8.3 Eosinophils % 0.0 Basophils % 0.2 Nucleated RBC % 0 Absolute Neutrophils 7.34 H Absolute Lymphocytes 1.23 Absolute Monocytes 0.78 Absolute Eosinophils 0.00 Absolute Basophils 0.02 RBC Morphology See below Polychromasia Present Hypochromasia 2+ Sodium Potassium Chloride Carbon Dioxide Anion Gap BUN Creatinine Estimated GFR/1.73 m2 Glucose Calcium Magnesium Iron 18 L TIBC 368 Transferrin % Sat 5 L Total Bilirubin AST ALT Alkaline Phosphatase Troponin I Total Protein Albumin Lipase Urine Color Urine Clarity Urine pH Ur Specific [place] Urine Protein Urine Ketones Urine Blood Urine Nitrite Urine Bilirubin Urine Urobilinogen Ur Leukocyte Esterase Urine RBC Urine WBC Ur Epithelial Cells Urine Crystals Urine Bacteria Urine Casts Urine Mucus Ur Culture Indicated? Urine Glucose COVID-19 Source Nasopharynx SARS-CoV-2 (PCR) Negative Influenza Type A (PCR) Negative Influenza Type B (PCR) Negative RSV (PCR) Negative
[2020-07-19 11:42] LABS: Anion Gap 9.8 mmol/L (3-11); BUN 18 mg/dL (7-18); CO2 25.2 mmol/L (21.0-32.0); Calcium 8.2 mg/dL (8.5-10.1); Chloride 106 mmol/L (98-107); Estimated GFR 54.97 (mL/min/1.73m2); Ferritin 16 ng/mL (8-252); Glucose 104 mg/dL (74-106); Magnesium 1.9 mg/dL (1.8-2.4); Potassium 3.7 mmol/L (3.5-5.1); Sodium 141 mmol/L (136-145)
--- NOTE | 2020-07-19 16:17 | CHAPLAIN ---
Debo was up in a chair when I visited. 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 She said this episode came on quickly and she came in by ambulance for the first time. She has slept much of the day today, and said she is beginning to feel better. Debo shared some personal history, telling me about adopting her daughter as single mom, living in [facility] for 10 years, as well as [place] and [place]. I will continue to visit.
[2020-07-19] MEDS: Enoxaparin 40 MG/0.4 ML SYR SC (16:47)
[2020-07-19] MEDS: Cephalexin 250 MG CAP PO ×2 (16:48→19:43)
[2020-07-19] MEDS: Ketorolac 15 MG/ML VIAL IVP (19:43)
[2020-07-20] VITALS (14 sets, daily range): BP systolic 114–133; BP diastolic 58–68; PULSE 73–79; RESP 18; TEMP 37.2–38.4; O2SAT 95–99
[2020-07-20] MEDS: Ketorolac 15 MG/ML VIAL IVP ×4 (02:37→20:19)
[2020-07-20] MEDS: Lactated Ringers 1,000 ML 125 ML IV (07:14)
--- NOTE | 2020-07-20 07:52 | W.PM.PROGNOT ---
Documented by User: KENDRA Kam 07/21/20 09:11 Date of Service Date of service: 07/20/20 Time of Service: 07:52 Assessment and Plan Assessment and plan (1) Small bowel obstruction: Status: Acute Assessment and plan: NGT tube was removed. No N/V. (+) Flatus, NO BM Abdominal pain is crampy in nature and relieved with passing flatus. Encouraged activity OOB Will start clear liquid diet this morning. (2) Anemia: Status: Chronic (3) Obstructive sleep apnea syndrome, moderate: Status: Acute (4) GERD (gastroesophageal reflux disease): Status: Chronic (5) Thoracic or lumbosacral neuritis or radiculitis, unspecified: Status: Acute Subjective Subjective Interval history since last seen: I slept very well last night. She expresses intermittent crampy abdominal pain, which subsides after passing flatus. Denies any N/V overnight or this morning. Exam Const General: cooperative, healthy appearing and comfortable Orientation: alert and oriented x3 Resp Effort & Inspection: normal respiratory effort, no audible wheezes and no cough Objective Last Vital Signs Temp 37.7 C H 07/19/20 19:50 Pulse 75 07/19/20 19:49 Resp 20 07/19/20 19:50 BP 141/68 H 07/19/20 19:49 Pulse Ox 95 07/19/20 16:13 Laboratory Results - last 24 hr 07/19/20 07/19/20 06:05 06:56 Sodium 141 Potassium 3.7 Chloride 106 Carbon Dioxide 25.2 Anion Gap 9.8 BUN 18 Creatinine 1.0 Estimated GFR/1.73 m2 54.97 Glucose 104 Calcium 8.2 L Magnesium 1.9 Iron 18 L TIBC 368 Transferrin % Sat 5 L Ferritin 16 Documented by User: Red Gimenez MD 07/21/20 14:11
--- NOTE | 2020-07-20 09:14 | PDOC.CMPRO ---
Care Management Progress Note S/O: Per MD, NGT removed, and Debo will be started on a clear liquid diet, which will be advanced with toleration. No change to overall plan. CM continues to follow. A: 70 year old female admitted to [facility] 07/18/20 with a SBO P: Debo continues to be closely monitored and treated. Anticipate she will be discharged home with no new services. She will follow up with her community providers and discharge plan of care. CM will continue to support patient, family and discharge planning needs.
[2020-07-20] MEDS: Cephalexin 250 MG CAP PO ×3 (09:38→16:16)
[2020-07-20] MEDS: Losartan 50 MG TAB PO (09:38)
[2020-07-20] MEDS: Pantoprazole 40 MG VIAL IVP (09:39)
[2020-07-20] MEDS: Normal Saline Flush 10 ML SYR IVP ×2 (09:41→20:19)
--- NOTE | 2020-07-20 10:32 | W.NUTRFU ---
Date of service: 07/20/20 Time of Service: 10:32 Nutritional Follow up NOTE: 70 year old female admitted with SBO, on bowel rest. BMI wnl. NPO day x 2. Will follow. Time Spent in Nutritional Counseling and Treatment: 0
--- NOTE | 2020-07-20 10:58 | W.PM.PROGNOT ---
Date of Service Date of service: 07/20/20 Time of Service: 10:59 Assessment and Plan Assessment and plan (1) Partial small bowel obstruction: Status: Acute Assessment and plan: liquids today Subjective Subjective Interval history since last seen: passing flatus and tolerating liquids. still some cramping Exam GI Other: abd soft not tender not distended Objective Last Vital Signs Temp 99.7 F H 07/20/20 09:50 Pulse 79 07/20/20 10:39 Resp 20 07/19/20 19:50 BP 133/66 07/20/20 10:39 Pulse Ox 95 07/20/20 02:41 Laboratory Results - last 24 hr 07/19/20 06:56 Sodium 141 Potassium 3.7 Chloride 106 Carbon Dioxide 25.2 Anion Gap 9.8 BUN 18 Creatinine 1.0 Estimated GFR/1.73 m2 54.97 Glucose 104 Calcium 8.2 L Magnesium 1.9 Ferritin 16
[2020-07-20] MEDS: IRON SUCROSE COMPLEX 300 MG in Normal Saline 250 ML 167 MG IVPB (10:59)
--- NOTE | 2020-07-20 14:20 | CHAPLAIN ---
Debo was happy to report that the NG tube was removed and her diet was changed to clear liquids. She's hoping she may go home tomorrow. This episode, which she's experiences before, has convinced her that it might be time to slow down at work, she said.
[2020-07-20] MEDS: Enoxaparin 40 MG/0.4 ML SYR SC (16:16)
[2020-07-20] MEDS: ACETAMINOPHEN 1,000 MG/100 ML BTL 400 MG IVPB (16:28)
[2020-07-20] MEDS: Lactated Ringers 1,000 ML 84 ML IV (17:25)
[2020-07-20] MEDS: Amoxicillin 875/Clav. 125 TAB PO (20:20)
[2020-07-21] VITALS (11 sets, daily range): BP systolic 127–147; BP diastolic 63–73; PULSE 60–72; RESP 14–16; TEMP 36.5–37.5; O2SAT 96–99
[2020-07-21] MEDS: Ketorolac 15 MG/ML VIAL IVP ×4 (02:52→19:47)
[2020-07-21] MEDS: Lactated Ringers 1,000 ML 84 ML IV ×2 (05:25→16:10)
[2020-07-21 06:59] LABS: Abs Immature Grans 0.04 10^3/uL (0.0-0.06); Absolute Basophil Count 0.03 10^3/uL (0.0-0.2); Absolute Lymphocyte Count 1.74 10^3/uL (1.2-3.4); Absolute Monocyte Count 0.46 10^3/uL (0.1-0.8); Absolute Neutrophil Count 3.94 10^3/uL (1.2-6.7); Basophils % 0.5; HCT 26.4 % (36.0-46.0); HGB 8.1 g/dL (11.2-15.7); Immature Grans % 0.6; MCH 24.6 pg (27.0-33.0); MCHC 30.7 % (32.0-36.0); MCV 80.2 fL (80-95); MPV 10.5 fL (8.0-11.0); Monocytes % 7.4; Neutrophils % 63.5; Nucleated RBC 0 %; Platelet Count 316 10^3/uL (130-400); RBC 3.29 10^6/uL (3.93-5.22); RDW 17.2 % (11.7-14.6); RDW-SD 49.7 fL; WBC 6.21 10^3/uL (4.4-10.8)
[2020-07-21 07:02] LABS: Anion Gap 7.6 mmol/L (3-11); CO2 29.4 mmol/L (21.0-32.0); CREATININE 0.9 mg/dL (0.55-1.02); Calcium 8.2 mg/dL (8.5-10.1); Chloride 105 mmol/L (98-107); Glucose 93 mg/dL (74-106); Sodium 142 mmol/L (136-145)
[2020-07-21 07:11] LABS: BUN 8 mg/dL (7-18)
[2020-07-21] MEDS: Pantoprazole 40 MG VIAL IVP (08:23)
[2020-07-21] MEDS: Losartan 50 MG TAB PO (08:24)
[2020-07-21] MEDS: Normal Saline Flush 10 ML SYR IVP ×2 (08:24→19:48)
[2020-07-21] MEDS: Amoxicillin 875/Clav. 125 TAB PO ×2 (08:24→19:47)
--- NOTE | 2020-07-21 09:11 | W.PM.PROGNOT ---
Documented by User: KENDRA Kam 07/21/20 09:14 Date of Service Date of service: 07/21/20 Time of Service: 09:11 Assessment and Plan Assessment and plan (1) Small bowel obstruction: Status: Acute Assessment and plan: No N/V. (+) Flatus, (+) BM Denies having any pain this morning. Fevers last night. Blood cultures drawn. No fever this morning. Etiology unclear. Enocuraged use of incentive spirometer. Encouraged activity OOB Will start full liquid diet this morning. (2) Anemia: Status: Chronic (3) Obstructive sleep apnea syndrome, moderate: Status: Acute (4) GERD (gastroesophageal reflux disease): Status: Chronic (5) Thoracic or lumbosacral neuritis or radiculitis, unspecified: Status: Acute Subjective Subjective Interval history since last seen: Patient reports feeling a little better this morning. Fever last night. (+) BM. Tolerating clear liquid diet. Exam Const General: cooperative, healthy appearing and comfortable Orientation: alert and oriented x3 Resp Effort & Inspection: normal respiratory effort, no audible wheezes and no cough GI Inspection: normal to inspection and non-distended Palpation: soft, no guarding and nontender Auscultation: normal bowel sounds Objective Last Vital Signs Temp 36.5 C 07/21/20 04:36 Pulse 67 07/21/20 04:38 Resp 14 07/21/20 04:36 BP 142/63 H 07/21/20 04:38 Pulse Ox 98 07/21/20 04:36 Laboratory Results - last 24 hr 07/21/20 07/21/20 06:20 06:20 WBC 6.21 RBC 3.29 L Hgb 8.1 L Hct 26.4 L MCV 80.2 MCH 24.6 L MCHC 30.7 L RDW 17.2 H Plt Count 316 MPV 10.5 Immature Gran % 0.6 Neutrophils % 63.5 Lymphocytes % 28.0 Monocytes % 7.4 Eosinophils % 0.0 Basophils % 0.5 Nucleated RBC % 0 Absolute Neutrophils 3.94 Absolute Lymphocytes 1.74 Absolute Monocytes 0.46 Absolute Eosinophils 0.00 Absolute Basophils 0.03 Sodium 142 Potassium 3.0 L Chloride 105 Carbon Dioxide 29.4 Anion Gap 7.6 BUN 8 D Creatinine 0.9 Estimated GFR/1.73 m2 >= 60.00 Glucose 93 Calcium 8.2 L Documented by User: Red Gimenez MD 07/21/20 14:10
--- NOTE | 2020-07-21 10:08 | PDOC.CMPRO ---
Care Management Progress Note S/O: Per MD, Debo will be advanced on a full liquid diet, which will be advanced with toleration. Reportedly, Debo did have a fever last night, she was ambulating independently throughout the hallways in Med/Surg today. No change to overall plan. CM continues to follow. A: 70 year old female admitted to [facility] 07/18/20 with a SBO P: Debo continues to be closely monitored and treated. Anticipate she will be discharged home with no new services. She will follow up with her community providers and discharge plan of care. CM will continue to support patient, family and discharge planning needs.
[2020-07-21] MEDS: Potassium Chloride 20 MEQ TABCR PO (13:26)
[2020-07-21] MEDS: Enoxaparin 40 MG/0.4 ML SYR SC (16:10)
[2020-07-22] MEDS: Ketorolac 15 MG/ML VIAL IVP ×2 (01:24→07:54)
[2020-07-22 01:52] VITALS: BP 159/70; PULSE 62; RESP 19; TEMP 36.5; O2SAT 98
[2020-07-22] MEDS: Lactated Ringers 1,000 ML 84 ML IV (04:04)
[2020-07-22 07:10] VITALS: BP 119/76; PULSE 62; RESP 16; TEMP 36.2; O2SAT 96
[2020-07-22] MEDS: Pantoprazole 40 MG VIAL IVP (07:55)
[2020-07-22] MEDS: Normal Saline Flush 10 ML SYR IVP (07:55)
[2020-07-22] MEDS: Potassium Chloride 20 MEQ TABCR PO (07:56)
[2020-07-22] MEDS: Amoxicillin 875/Clav. 125 TAB PO (07:56)
[2020-07-22] MEDS: Losartan 50 MG TAB PO (07:56)
--- NOTE | 2020-07-22 09:35 | W.PM.PROGNOT ---
Date of Service Date of service: 07/22/20 Time of Service: 09:36 Assessment and Plan Assessment and plan (1) Partial small bowel obstruction: Status: Acute Assessment and plan: Should be able to go home today will need continued antibiotics for her urinary tract infection Subjective Subjective Interval history since last seen: Passing gas moving her bowels no abdominal pain. She is tolerating a diet Exam GI Other: Abdomen is nondistended bowel sounds are present. No abdominal tenderness noted. Objective Last Vital Signs Temp 97.2 F L 07/22/20 07:10 Pulse 62 07/22/20 07:10 Resp 16 07/22/20 07:10 BP 119/76 07/22/20 07:10 Pulse Ox 96 07/22/20 07:10
--- NOTE | 2020-07-22 09:38 | W.PM.DS.N ---
Date of service: 07/22/20 Time of Service: 09:38 DS: Diagnosis Discharge Diagnosis (1) Partial small bowel obstruction: Status: Acute Discharge Plan Disposition Patient Disposition: HOME Condition: Improving Discharge Details Reason For Visit: SBO Admit Date/Time: 07/18/20 14:06 Admit Provider: Lia Dent Attending Provider: Lia Dent Primary Care Provider: Kristen Cline Hospital Course Hospital Course: 70-year-old woman with a history of multiple abdominal surgeries and bowel resections who was admitted with a partial small bowel obstruction. She was initially treated with an NG tube. There is very little drainage from the NG tube and she began passing gas within about 24 hours from admission. The NG tube was discontinued. Following day she was started on a clear liquid diet which she tolerated well. She had a bowel movement and her diet was advanced. She did have a febrile episode in the hospital and on admission urine culture grew E. coli. Home Meds and New Rx's Prescriptions: New amoxicillin-pot clavulanate 875-125 mg Tablet 1 tab PO BID Qty: 12 RF: 0 No Action Shingrix (PF) 50 mcg/0.5 mL suspension for reconstitution 0.5 ml IM ONCE Qty: 1 RF: 1 fluticasone propionate 50 mcg/actuation spray,suspension 50 mcg NS DAILY PRN (Reason: allergy symptoms) Qty: 1 RF: 5 estradiol 0.5 mg tablet 0.5 mg PO DAILY Qty: 90 RF: 3 aspirin [Aspirin Low-Strength] 81 MG tablet,chewable 81 mg PO DAILY Qty: 100 RF: 11 losartan-hydrochlorothiazide 50-12.5 mg tablet 1 tab PO DAILY Qty: 90 RF: 3 dicyclomine 10 mg capsule 20 mg PO TID Qty: 90 RF: 3 omeprazole 20 mg capsule,delayed release(DR/EC) 20 mg PO DAILY Qty: 90 RF: 3 acetaminophen [Tylenol] 325 MG tablet 650 mg PO Q6H PRN PRNRF: 0 Discharge Instructions Additional Instructions: Continue to slowly advance her diet. Take the antibiotics for your urinary tract infection. Please call the surgery office for follow-up appointment Activity:: Activity as Tolerated Equipment/Supplies:: No Equipment Needed Diet:: As Tolerated Discharge Orders Discharge Orders: Discharge Order (Routine); Ordered 07/22/20 Ordered By: Red Gimenez DS: Summary Time Spent with Patient providing and/or coordinating discharge services: Less than 30 minutes Status at Discharge Functional status at discharge: independent ambulation Overall status at discharge: patient is progressing back to baseline Mental Status: mental status grossly normal Speech and Movement: speech and movement normal Mood: congruent mood Affect: normal affect Exam Psych Mental Status: mental status grossly normal Speech and Movement: speech and movement normal Mood: congruent mood Affect: normal affect DS: Data Vitals/I&O Vitals and I&O: Vital Signs Temperature 97.2 F L 07/22/20 07:10 Temperature Source Tympanic 07/22/20 07:10 Pulse 62 07/22/20 07:10 Pulse Rhythm Regular 07/22/20 07:55 Pulse 90 07/18/20 12:50 Respiratory Rate 16 07/22/20 07:10 Respiratory Effort Non-Labored 07/22/20 07:55 Respiratory Depth Normal 07/22/20 07:55 Respiratory Pattern Normal 07/22/20 07:55 Blood Pressure 119/76 07/22/20 07:10 Blood Pressure Mean 89 07/21/20 23:31 Blood Pressure Position Supine 07/18/20 15:39 Pulse Oximetry 96 07/22/20 07:10 Oxygen Delivery Method Room Air 07/22/20 07:10 Oxygen Flow Rate 0 07/22/20 07:10 Pain Level 0 07/22/20 07:54 Comment 07/18/20 22:06 Intake & Output 07/21/20 07/21/20 07/22/20 11:59 23:59 11:59 Intake Total 1480 / 3224.4 1744.4 / 3224.4 1948.8 / 1947.8 Output Total 750 / 2650 1900 / 2650 Balance 730 / 574.4 -155.6 / 574.4 1948.8 / 1948.8 Weight 129 lb 6.581 oz Intake: IV 1000 / 1904.4 904.4 / 1904.4 1388.8 / 1388.8 Oral 480 / 1320 840 / 1320 560 / 560 Output: Urine 750 / 2650 1900 / 2650 Other: Urine Color Yellow Pale Yellow Urine Appearance Clear Clear Clear Urine Odor Normal None Stool Size Moderate Stool Characteristics Soft Formed Brown Voiding Methods Bedside Commode Bedside Commode Data Completed and Pending Labs on day of discharge: Preliminary micro results at discharge 07/20/20 17:18 Blood Culture - Preliminary Blood NO GROWTH 24 HOURS 07/20/20 17:05 Blood Culture - Preliminary Blood NO GROWTH 24 HOURS [facility] Medical History Anemia Colovaginal fistula Depression GERD (gastroesophageal reflux disease) Hypercholesterolemia Hypertension Incisional hernia Infertility, female Intestinal anastomotic leak Migraine Ovarian cyst, left SBO (small bowel obstruction) SBO (small bowel obstruction) Small bowel obstruction due to adhesions Ventral hernia Surgical History Abdominal hysterectomy Appendectomy Arthroplasty of knee right Colectomy and removal of left ovarian cyst 2014 Colostomy 201401/23/16 [address] transverse loop colostomy Dr Camargo colostomy takedown and MIKA (11/14/15) colostomy takedown and MIKA (07/22/17) colovaginal fistula and abd wall hernia (01/23/16) hernia abdominal wall repair (01/23/16) Dr Camargo Oophrectomy, Both Reduction mammoplasty Right subclavian vein triple lumen central line placement (01/23/16) by Dr Horne, access needed for colovaginal fistula repair Rotator Cuff Repair left shoulder Sigmoidoscopy (05/28/17) Tonsillectomy and adenoidectomy transforaminal nerve root block (04/27/14) Dr White steroid injection Family History Mother , Alzheimers Tuberculosis Hyperlipidemia Breast cancer Father Heart disease Other Diabetes Ovarian cancer Social History Smoking/Tobacco Use Status: Never Smoking risk assessment performed?: Yes Alcohol Intake: current Alcohol Intake frequency: a few times a week Alcohol type: wine Drug use: Never Substance use type: does not use Household members: significant other Housing: house Number of Children: 1 number of grandchildren: 0 Communication Needs: Corrective Lenses 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 [employer] 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: female What is your relationship status?: living with partner Panel score (0-1 are the most socially isolated patients): 1 What type of physical activity do you participate in: regular exercise and other Details: physically active daily Seatbelt use: always Drive 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
--- NOTE | 2020-07-22 19:14 | PDOC.CMDIS ---
- If Service Date Differs Date of service: 07/22/20 Time of Service: 19:14 LACE Index Scoring Tool - Questions: Length of Stay (in days): 4 - 6 Acuity (Admit via E.D.?): Yes E.D. Visits: 2 - Answers: Total Score: 9 Risk of Readmission: Low Risk Care Management Discharge Reason for Hospitalization: SBO Discharge Plan: Debo will be discharged home with no new services. She will follow up with her community providers and discharge plan of care. She will transport via private vehicle with family. Patient/Family Education Needs: Discharge plan, limitations, follow up plan, Ask Me Three
== END 2020-07-22 10:32 | disposition home or self-care (01) | DRG 389 ==
LOC: ER 14:46 → ICU 15:24 → MS 07-22 00:26
PROVIDERS: Surgery; Admitting Provider Surgery; Emergency Provider Physician Assistant; PCP Internal Medicine; Visit Provider Surgery
DX: K56.600 Partial intestinal obstruction, unspecified as to cause (principal); N39.0 Urinary tract infection, site not specified; G47.33 Obstructive sleep apnea (adult) (pediatric); D64.9 Anemia, unspecified; K21.9 Gastro-esophageal reflux disease without esophagitis; F32.9 Major depressive disorder, single episode, unspecified; E78.00 Pure hypercholesterolemia, unspecified; I10 Essential (primary) hypertension; G43.909 Migraine, unspecified, not intractable, without status migrainosus; M54.14 Radiculopathy, thoracic region; M54.17 Radiculopathy, lumbosacral region; B96.20 Unspecified Escherichia coli [E. coli] as the cause of diseases classified elsewhere
CPT/HCPCS: 36415; 71045; 80048; 80053; 83690; 87040; 87077; 96361; 96374; 96375; 96376; 99222; 99231; 99232; 99238; 99285; J1650; 74019; 74177; 81003; 81015; 82728; 83540; 83550; 83735; 84484; 85025; 87086; 87186; J0131; J1756; J1885; J2405; J3490

== ENCOUNTER 2020-08-14 00:52 | Outpatient (CLI) | payer OTHER, MEDICARE, SELFPAY ==
--- NOTE | 2020-08-14 07:45 | DI.MAMMO_ITS ---
EXAM: MG MAMMO SCREENING CLINICAL HISTORY: screening,Z12.39. TECHNIQUE: Bilateral full field digital CC and MLO mammographic images were obtained with 3D tomosyn thesis and utilizing computer aided detection (CAD). COMPARISON: Prior mammograms dating back to 2010, the most recent being August 2019.. Prior breast u ltrasounds reviewed FINDINGS: Fibroglandular tissue is dense which decreases the sensitivity of the mammogram for finding in underl venkat lesions There are no new obvious spiculated masses nor malignant appearing microcalcification groups. Numerou s benign-appearing microcalcifications in both breasts are again noted. There is no significant arch itectural distortion nor skin thickening-retraction. IMPRESSION: Dense bilateral fibroglandular tissue. No obvious radiographic evidence of malignancy nor significan t change compared to the prior studies. BI-RADS Category 2 - Benign Findings Breast Density - Category C - Heterogeneously dense Breast density Category C or D implies that the patient has dense breast tissue. Dense breast tissue can make it harder to find cancer on a mammogram. Dense breast tissue is also associated with an incr eased risk of breast cancer. This information about the result of the mammogram report was provided to the patient to raise their awareness. Use this report when you speak with the patient about their risks for breast cancer, which includes their family history. At that time, you may recommend additional screening tests (Ultrasoun d or MRI) as these tests may add significant information. A negative radiographic report should not delay biopsy if a dominant or clinically suspicious mass is present. Up to ten percent of cancers are not identified on mammography. A negative report may reinforce clinical impression. Adenosis and dense breasts may obscure an underlying neoplasm. False positive reports average 6 to 10%. Patient will receive a letter notifying them of these results.
== END 2020-08-14 01:12 ==
PROVIDERS: PCP Internal Medicine; Visit Provider Nurse Practitioner Family
DX: Z12.31 Encounter for screening mammogram for malignant neoplasm of breast (principal)
CPT/HCPCS: 77063; 77067

== ENCOUNTER 2020-09-23 18:50 | Outpatient (REF) | payer OTHER, SELFPAY | END 2020-09-23 18:51 | disposition home or self-care (01) | LOC: LBN 18:50 | PROVIDERS: PCP Internal Medicine; Visit Provider Physician Assistant | DX: N39.0 Urinary tract infection, site not specified (principal) | CPT/HCPCS: 87077; 87086; 87186 ==

== ENCOUNTER 2020-11-03 02:26 | Outpatient (CLI) | payer OTHER, SELFPAY ==
[2020-11-03 12:14] LABS: Bilirubin Negative (Negative); Blood Trace-lysed (Negative); Clarity Clear (Clear); Glucose Negative (Negative); Ketones Negative (Negative); Leukocyte Esterase Negative (Negative); Nitrite Negative (Negative); Specific Gravity 1.015 (1.005-1.025); Urobilinogen 0.2 EU/dL (Up TO 0.2); pH 6.5 (5-8)
[2020-11-03 12:29] LABS: Bacteria Negative HPF (Negative); C & S Indicated? No; Casts Negative LPF (Negative); Crystals Negative HPF (Negative); Epithelial Cells Few HPF (Negative); Mucus Negative (Negative); RBC 0-2 HPF (0-2); WBC Negative HPF (0-5)
[2020-11-03 13:31] LABS: Calculated LDL 171 mg/dL (<100); Cholesterol 271 mg/dL (<200); HDL Cholesterol 71 mg/dL (40-60); TSH 0.33 uIU/mL (0.36-3.74); Triglyceride 147 mg/dL (<150)
== END 2020-11-03 02:27 | disposition home or self-care (01) ==
LOC: LBO 02:26
PROVIDERS: Surgery; PCP Internal Medicine; Visit Provider Internal Medicine
DX: E78.00 Pure hypercholesterolemia, unspecified (principal); L65.9 Nonscarring hair loss, unspecified; N39.0 Urinary tract infection, site not specified
CPT/HCPCS: 36415; 80061; 81003; 81015; 84443

== ENCOUNTER 2021-08-15 01:42 | Outpatient (CLI) | payer MEDICARE, SELFPAY ==
--- NOTE | 2021-08-15 11:30 | DI.MAMMO_ITS ---
Exam(s) MAMMO SCREENING EXAM: MAMMO SCREENING CLINICAL HISTORY: screening. TECHNIQUE: Bilateral full field digital CC and MLO mammographic images were obtained with 3D tomosyn thesis and utilizing computer aided detection (CAD). COMPARISON: Prior mammograms were reviewed, the most recent being July 2020. FINDINGS: Fibroglandular tissue pattern is again noted dense, this somewhat decreasing the sensitivity for find ing hidden underlying lesions. There are no new spiculated masses nor malignant appearing microcalcification groups. There is no significant architectural distortion nor skin thickening-retraction. IMPRESSION: Dense bilateral fibroglandular tissue. No obvious radiographic evidence of malignancy nor significan t change compared to prior mammograms listed above. BI-RADS Category 2 - Benign Findings Breast Density - Category C - Heterogeneously dense Breast density Category C or D implies that the patient has dense breast tissue. Dense breast tissue can make it harder to find cancer on a mammogram. Dense breast tissue is also associated with an incr eased risk of breast cancer. This information about the result of the mammogram report was provided to the patient to raise their awareness. Use this report when you speak with the patient about their risks for breast cancer, which includes their family history. At that time, you may recommend additional screening tests (Ultrasoun d or MRI) as these tests may add significant information. A negative radiographic report should not delay biopsy if a dominant or clinically suspicious mass is present. Up to ten percent of cancers are not identified on mammography. A negative report may reinforce clinical impression. Adenosis and dense breasts may obscure an underlying neoplasm. False positive reports average 6 to 10%. Patient will receive a letter notifying them of these results.
== END 2021-08-15 02:02 ==
PROVIDERS: PCP Internal Medicine; Visit Provider Nurse Practitioner Family
DX: Z12.31 Encounter for screening mammogram for malignant neoplasm of breast (principal); R92.8 Other abnormal and inconclusive findings on diagnostic imaging of breast
CPT/HCPCS: 77063; 77067

== ENCOUNTER 2021-09-07 20:21 | Inpatient (IN) | payer MEDICARE, SELFPAY ==
[2021-09-07] VITALS (27 sets, daily range): BP systolic 132–164; BP diastolic 61–95; PULSE 67–92; RESP 10–99; TEMP 36.6; O2SAT 97–100
--- NOTE | 2021-09-07 20:45 | RT.EKG_ITS ---
APPROVED REPORT Exam: Resting ECG Reason for Exam: epigastric pain Patient Location: E HR:65 bpm ECG Measurements Heart Rate [address] 164 P 29 QRSd 91 QRS -23 QT 492 T 202 QTc 511 Conclusion Sinus rhythm...normal P axis, V-rate 60- 99 Probable left atrial enlargement...P >50mS, <-0.10mV V1 Low voltage, precordial leads...precordial leads <1.0mV Abnormal T, probable ischemia, widespread...T <-0.50mV, ant/lat/inf Prolonged QT interval...QTc >500mS sinus rhythm, left axis, T wave inversion I II aVF, V3-V6
--- NOTE | 2021-09-07 20:45 | DI.CT_ITS ---
Exam(s) CT ABDOMEN PELVIS W EXAM: CT ABDOMEN PELVIS W INDICATION: upper abd pain, hx of multiple SBOs. COMPARISON: CT CT ABDOMEN PELVIS W from 07/18/2020 TECHNIQUE: FINDINGS: CT examination of the abdomen and pelvis was performed with a bolus infusion of 100 cc of Omnipaque 3 50. Images obtained through the lung bases are unremarkable. The liver is unremarkable in appearance with the exception of 2 previously identified left lobe hepat ic cysts. Gallbladder and bile ducts are CT normal. Pancreas appears normal. Spleen is unremarkable in appearance. Adrenals appear normal. The kidneys are unremarkable with no evidence of hydronephrosis, nephrolithiasis, or renal mass.. Ur inary bladder unremarkable. Abdominal aorta is of normal diameter and no major vascular abnormality is seen. No abdominal wall hernia. No abdominal or pelvic adenopathy. Uterus is atrophic or absent. No evidence of appendicitis.. No evidence of diverticulitis. There are multiple dilated loops of small bowel suggesting small bowel obstruction with presumed underwood sition point in right lower quadrant. There is a moderate quantity of fecal material in the colon co nsistent with early or partial small bowel obstruction. Distal small bowel is nondistended. IMPRESSION: Small-bowel obstruction, probably early or partial, with presumed transition point in right lower shirley drant. Findings are similar to findings on prior examination of 07/18/2020. Anastomotic sutures are also noted in this region of the abdomen.. RADIATION DOSE DELIVERED: 532.83mGy.cm Total DLP 532.83mGy.cm Total DLP !Error CTDIvol RADIATION OPTIMIZATION: All CT scans at this facility use at least one of these dose optimization te chniques: automated exposure control; mA and/or kV adjustment per patient size (includes targeted exa ms where dose is matched to clinical indication); or iterative reconstruction.
--- NOTE | 2021-09-07 20:59 | ED.GENADUL_ITS ---
Discharge Plan Disposition Patient Disposition: [facility] INPATIENT Condition: Stable Discharge Details Chief Complaint: Abd Prob Clinical Impression: SBO (small bowel obstruction) Primary Care Provider: Kristen Cline ED Provider: Oz Lopez Home Meds and New Rx's Prescriptions: No Action Shingrix (PF) 50 mcg/0.5 mL suspension for reconstitution 0.5 ml IM ONCE Qty: 1 1RF Rx Instructions: Administer one dose and repeat in 2-6 months losartan-hydrochlorothiazide 50-12.5 mg tablet 1 tab PO DAILY Qty: 90 3RF estradiol 0.5 mg tablet 0.5 mg PO DAILY Qty: 90 2RF omeprazole 20 mg capsule,delayed release(DR/EC) 20 mg PO DAILY Qty: 90 3RF dicyclomine 10 mg capsule 20 mg PO TID Qty: 90 5RF acetaminophen [Tylenol] 325 MG tablet 650 mg PO Q6H PRN PRN0RF Probiotic 3 billion cell Capsule PO DAILY 0RF Rx Instructions: unknown dose Medical Decision Making 71-year-old female history of multiple abdominal surgeries resulting in intra- abdominal adhesions, prior ostomy status post reversal, multiple SBO's in the past presents with epigastric abdominal pain and nausea over the past several hours, denies constipation or vomiting. Soft nontender nonperitoneal. Afebrile nontoxic. Consider early SBO versus gastritis versus enteritis versus colitis versus atypical ACS. Screening labs imaging fluids analgesia antiemetics close reassessment disposition pending results 2316 evidence of small bowel obstruction on CT scan. Attempting to place NG tube at bedside. Spoke with general surgery Dr. Hansen who will admit patient. HPI General Date/Time Provider Initiated Documentation: 09/07/21 20:24 . HPI Narrative: 71-year-old female history of multiple abdominal surgeries including adnexal surgery, hernia repair, mesh placement, resulting in extensive intra-abdominal adhesions causing multiple small bowel obstructions, prior complication requiring ostomy status post reversal, presents with epigastric discomfort over the past several hours denies vomiting however slightly nauseous, had a normal bowel movement earlier today. Related Data Home Medications Medication Instructions Recorded Confirmed acetaminophen 325 mg tablet 650 mg PO Q6H PRN PRN tab 07/25/17 09/07/21 (Tylenol) varicella-zoster glycoE vacc-AS01B 0.5 ml IM ONCE #1 each 07/21/19 07/25/20 adj(PF) 50 mcg/0.5 mL IM susp, kit (Shingrix (PF)) losartan 50 mg-hydrochlorothiazide 1 tab PO DAILY #90 tab 08/02/20 09/07/21 12.5 mg tablet estradiol 0.5 mg tablet 0.5 mg PO DAILY #90 tab 11/02/20 09/07/21 omeprazole 20 mg capsule,delayed 20 mg PO DAILY #90 cap 01/30/21 09/07/21 release dicyclomine 10 mg capsule 20 mg PO TID #90 tab-cap 02/12/21 09/07/21 lactobacillus combination no.4 3 PO DAILY 09/07/21 billion cell capsule (Probiotic) Previous Rx's Medication Instructions Recorded acetaminophen 325 mg tablet 650 mg PO Q6H PRN PRN tab 07/25/17 (Tylenol) varicella-zoster glycoE vacc-AS01B 0.5 ml IM ONCE #1 each 07/21/19 adj(PF) 50 mcg/0.5 mL IM susp, kit (Shingrix (PF)) losartan 50 mg-hydrochlorothiazide 1 tab PO DAILY #90 tab 08/02/20 12.5 mg tablet estradiol 0.5 mg tablet 0.5 mg PO DAILY #90 tab 11/02/20 omeprazole 20 mg capsule,delayed 20 mg PO DAILY #90 cap 01/30/21 release dicyclomine 10 mg capsule 20 mg PO TID #90 tab-cap 02/12/21 Allergies Allergy/AdvReac Type Severity Reaction Status Date / Time sumatriptan Allergy Severe Anaphylaxsi Verified 09/07/21 20:39 s ciprofloxacin Allergy Unknown Skin Rash Verified 09/07/21 20:39 morphine AdvReac Severe Nausea Verified 09/07/21 20:39 doxycycline monohydrate AdvReac Intermediate vomiting Verified 09/07/21 20:39 [From Vibramycin] Penicillins AdvReac Intermediate Nausea Verified 09/07/21 20:39 tramadol AdvReac Intermediate dizzyness, Verified 09/07/21 20:39 faintness General Stated Complaint: Abd Prob RAHEL: 3 Review of Systems Narrative: Review of Systems Constitutional: negative Eyes: negative ENT: negative Cardiovascular: negative Respiratory: negative Gastrointestinal: Abdominal pain : negative Musculoskeletal: negative Skin: negative Neurologic: negative Psych: negative PFSH All Active Problems (Updated 09/07/21 @ 23:19 by Oz Lopez MD) SBO (small bowel obstruction) (Acute) Partial small bowel obstruction (Acute) Small bowel obstruction (Acute) Anemia (Chronic) SBO (small bowel obstruction) (Acute) Encounter for screening for other viral diseases (Acute) Periodic limb movements of sleep (Acute) sleep study 12/18/18 mild borderline Obstructive sleep apnea syndrome, moderate (Acute) study 12/18/18 dr. 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 for treatment of sleep disordered breathing [place] cardiac risk 10-20% in next 10 years (Acute) Irritable colon (Acute 04/19/13) Migraine (Acute 04/19/13) Sleep related leg cramps (Acute) 09/14/18 [facility] Snoring (Acute) 09/14/18 ov at [facility] GERD (gastroesophageal reflux disease) (Chronic) Stress (Acute 07/01/17) Pure hypercholesterolemia (Acute) Lumbosacral neuritis (Acute 10/14/12) Thoracic or lumbosacral neuritis or radiculitis, unspecified (Acute 10/14/12) Family history of breast cancer (Acute 10/25/14) Essential hypertension (Acute 12/22/12) Acquired absence of both cervix and uterus (Acute 01/13/17) VIVEK for fibroids - part of one ovary remains Abdominal adhesions (Acute) Hx recurrent SBO w/ several MIKA. 01/2016 colovaginal fistula. resolved with repeat laparotomy and colostomy. Lumbar radiculopathy (Acute) Lumbar disc displacement without myelopathy (Acute) Postoperative ileus (Acute) Heart burn (Acute) ostomy (Acute) Open abdominal wall wound (Acute) Colovaginal fistula (Acute) incision (Acute) Leukocytosis (leucocytosis) (Acute) S/P colostomy takedown (Chronic) Bowel obstruction (Acute) Medical History Anemia Colovaginal fistula Depression GERD (gastroesophageal reflux disease) Hypercholesterolemia Hypertension Incisional hernia Infertility, female Intestinal anastomotic leak Migraine Ovarian cyst, left SBO (small bowel obstruction) SBO (small bowel obstruction) Small bowel obstruction due to adhesions Ventral hernia Surgical History Abdominal hysterectomy Appendectomy Arthroplasty of knee right Colectomy and removal of left ovarian cyst 2014 Colostomy 201401/23/16 diverting transverse loop colostomy Dr Camargo colostomy takedown and MIKA (11/14/15) colostomy takedown and MIKA (07/22/17) colovaginal fistula and abd wall hernia (01/23/16) hernia abdominal wall repair (01/23/16) Dr Camargo Oophrectomy, Both Reduction mammoplasty Right subclavian vein triple lumen central line placement (01/23/16) by Dr Horne, access needed for colovaginal fistula repair Rotator Cuff Repair left shoulder Sigmoidoscopy (05/28/17) Tonsillectomy and adenoidectomy transforaminal nerve root block (04/27/14) Dr White steroid injection Family History Mother , Alzheimers Tuberculosis Hyperlipidemia Breast cancer Father Heart disease Other Diabetes Ovarian cancer Social History Smoking/Tobacco Use Status: Never Smoking risk assessment performed?: Yes Alcohol Intake: current Alcohol Intake frequency: a few times a month Alcohol type: wine Drug use: Never Substance use type: does not use Household members: significant other Housing: house Number of Children: 1 number of grandchildren: 0 Communication Needs: Corrective Lenses 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 [employer] 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: female What is your relationship status?: living with partner Panel score (0-1 are the most socially isolated patients): 1 What type of physical activity do you participate in: regular exercise and other Details: physically active daily Seatbelt use: always Drive 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 Working smoke detector in home: Yes Fire extinguisher in home: Yes Carbon monox detector in home: Yes Do you feel safe at home: Yes Do you feel safe in your relationship?: Yes Female Reproductive History Menstrual Menopause type: surgical Exam Narrative Exam Narrative: Physical Examination General: alert, awake, cooperative, resting comfortably, no acute distress HEENT: normocephalic, atraumatic; PERRL, EOM intact, conjunctiva normal; no nasal discharge; moist mucous membranes, oral and pharyngeal mucosa normal, tolerating secretions Neck: supple, trachea midline; full ROM Chest: normal to inspection Respiratory: normal respiratory effort, speaking in full sentences, clear to auscultation, no wheezing, rales or rhonchi Cardiac: regular rate, regular rhythm, S1S2 intact, no murmurs rubs or gallops GI: abdomen soft, non-tender, non-distended; no palpable mass or hepatosplenomegaly Skin: no lesions, rashes or trauma appreciated Neuro: AAOx3, normal speech, moving all extremities Psych: Appropriate mood and affect Course Vital Signs Vital signs: Vital Signs Temperature 36.6 C 09/07/21 20:30 Pulse 78 09/07/21 20:30 Respiratory Rate 99 H 09/07/21 20:30 Blood Pressure 164/71 H 09/07/21 20:30 Pulse Oximetry 99 09/07/21 20:30 Temperature 36.6 C 09/07/21 20:30 Temperature Source Skin 09/07/21 20:30 Pulse 78 09/07/21 20:30 Respiratory Rate 99 H 09/07/21 20:30 Respiratory Effort 09/07/21 20:45 Blood Pressure 164/71 H 09/07/21 20:30 Blood Pressure Position Supine 09/07/21 20:30 Pulse Oximetry 99 09/07/21 20:30 Oxygen Delivery Method Room Air 09/07/21 20:30 Oxygen Flow Rate 0 09/07/21 20:30 Pain Level 9 09/07/21 20:30 Comment 09/07/21 20:30
[2021-09-07] MEDS: Famotidine 20 MG/2 ML VIAL IVP (21:05)
[2021-09-07] MEDS: Ondansetron 4 MG/2 ML VIAL IVP (21:05)
[2021-09-07] MEDS: HYDROmorphone 2 MG/ML VIAL 0.5 MG IVP ×2 (21:05→22:38)
[2021-09-07] MEDS: Normal Saline 1,000 ML 1000 ML IV (21:06)
[2021-09-07 21:19] LABS: Abs Immature Grans 0.04 10^3/uL (0.0-0.06); Absolute Basophil Count 0.04 10^3/uL (0.0-0.2); Absolute Eosinophil Count 0.01 10^3/uL (0.0-0.7); Absolute Monocyte Count 0.46 10^3/uL (0.1-0.8); Absolute Neutrophil Count 7.09 10^3/uL (1.2-6.7); Basophils % 0.4; Eosinophils % 0.1; HCT 36.4 % (36.0-46.0); Immature Grans % 0.4; Lymphocytes % 15.5; MCH 30.5 pg (27.0-33.0); MCV 92.4 fL (80-95); Monocytes % 5.1; Neutrophils % 78.5; Nucleated RBC 0 %; RBC 3.94 10^6/uL (3.93-5.22); RDW 12.8 % (11.7-14.6); RDW-SD 43.2 fL; WBC 9.04 10^3/uL (4.4-10.8)
[2021-09-07 21:29] LABS: ALT 20 U/L (14-59); AST 16 U/L (15-37); Albumin 3.8 g/dL (3.4-5.0); Alkaline Phosphatase 76 U/L (46-116); Anion Gap 9.5 mmol/L (3-11); BUN 26 mg/dL (7-18); Bilirubin, Total 0.2 mg/dL (0.2-1.0); CO2 26.5 mmol/L (21.0-32.0); CREATININE 1.1 mg/dL (0.55-1.02); Calcium 9.2 mg/dL (8.5-10.1); Chloride 104 mmol/L (98-107); Glucose 128 mg/dL (74-106); Lipase 122 U/L (73-393); Potassium 3.2 mmol/L (3.5-5.1); Sodium 140 mmol/L (136-145); Total Protein 7.1 g/dL (6.4-8.2); Troponin I < 50 ng/L (<or=60)
[2021-09-07 21:32] LABS: Platelet Count 285 10^3/uL (130-400)
[2021-09-07] MEDS: Omnipaque 350 MG/ML 100 ML BTL IJ (22:07)
[2021-09-07] MEDS: Metoclopramide 10 MG/2 ML VIAL IVP (22:38)
--- NOTE | 2021-09-07 22:43 | DI.VRAD_ITS ---
PROCEDURE INFORMATION: Exam: CT Abdomen And Pelvis With Contrast Exam date and time: 09/07/2021 10:02 PM Age: 71 years old Clinical indication: Abdominal pain; Localized; Upper; Prior surgery; Surgery date: 6+ months; Surgery type: Prior laparoscopic procedures; Patient HX: Prior sbo; Additional info: Upper abd pain TECHNIQUE: Imaging protocol: Computed tomography of the abdomen and pelvis with contrast. Radiation optimization: All CT scans at this facility use at least one of these dose optimization techniques: automated exposure control; mA and/or kV adjustment per patient size (includes targeted exams where dose is matched to clinical indication); or iterative reconstruction. Contrast material: OMNI 350; Contrast volume: 100 ml; Contrast route: INTRAVENOUS (IV); COMPARISON: CT ABDOMEN PELVIS W 07/18/2020 1:06 PM FINDINGS: Liver: Two hypodense lesions are present in the left hepatic lobe, both measuring 1.6 cm, which appears stable from the prior exam, likely representing cysts. Gallbladder and bile ducts: Normal. No calcified stones. No ductal dilation. Pancreas: Normal. No ductal dilation. Spleen: Normal. No splenomegaly. Adrenal glands: Normal. No mass. Kidneys and ureters: Congenital malrotation the left kidney again noted. No renal calculus or hydronephrosis identified. Stomach and bowel: A small bowel obstruction is present with multiple dilated loops small bowel measuring up to 3.9 cm in diameter. There is a transition point to smaller caliber loops of bowel in the right lower quadrant, which is difficult to visualize due to adhesions. Postoperative changes are present previous partial bowel resection. Appendix: No evidence of appendicitis. Intraperitoneal space: Unremarkable. No free air. No significant fluid collection. Vasculature: Unremarkable. No abdominal aortic aneurysm. Lymph nodes: Unremarkable. No enlarged lymph nodes. Urinary bladder: Unremarkable as visualized. Reproductive: Prior hysterectomy. Bones/joints: Mild multilevel degenerative changes are present with a grade 1 anterolisthesis of L4 on L5 and L5 on S1. Soft tissues: Unremarkable. IMPRESSION: 1. High-grade small bowel obstruction present with a transition point in a right lower quadrant, with the causative etiology likely adhesions. 2. Postoperative changes prior partial bowel resection and hysterectomy. Dictated and Authenticated by: Otilia Pinedo MD. Ordering:RAMSES Clinton MD
[2021-09-07] MEDS: Lidocaine 2% Viscous 15 ML CUP (23:16)
--- NOTE | 2021-09-07 23:19 | W.PM.HP.N ---
Date of service: 09/08/21 Time of Service: 09:00 Assessment and Plan Assessment and plan (1) SBO (small bowel obstruction): Status: Acute Assessment and plan: -Will attempt concervative treatment with NG tube, IV fluids and bowel rest -IV protonix for GI ppx -SQ Lovenox for DVT ppx -OK to disconnect from suction to ambulate -Replete electrolytes -PRN analgesics as written -Hold home PO meds for now (2) GERD (gastroesophageal reflux disease): Status: Chronic (3) Abdominal adhesions: Status: Acute History of Present Illness Narrative: 71 year old female with history of multiple abdominal surgeries and previous small bowel obstructions who presented to the ER complaining of abdominal pain, nausea and vomiting. Patient underwent basic labs and CT scan confirming suspicion of recurrent small bowel obstruction. An NG tube was placed and I was asked to see the patient in regard to the above findings. She reports sudden onset of nausea and vomiting after getting up off of the floor, followed by cramping abdominal pain. Her last bowel movement was yesterday and normal for her. Review of Systems All systems reviewed & are unremarkable except as noted in HPI and below ENT Ears, Nose, Mouth, and Throat: Denies dizziness Cardiovascular Cardiovascular: Denies chest pain, Denies syncope, Denies rapid heart rate and Denies dyspnea Respiratory Respiratory: Denies dyspnea Gastrointestinal Gastrointestinal: Reports abdominal pain, Denies constipation, Denies diarrhea, Reports nausea and Reports vomiting Neurologic Neurologic: Denies confusion, Denies dizziness and Denies syncope Psychiatric Psychiatric: Denies confusion PFSH All Active Problems (Updated 09/07/21 @ 23:19 by Oz Lopez MD) SBO (small bowel obstruction) (Acute) Partial small bowel obstruction (Acute) Small bowel obstruction (Acute) Anemia (Chronic) SBO (small bowel obstruction) (Acute) Encounter for screening for other viral diseases (Acute) Periodic limb movements of sleep (Acute) sleep study 12/18/18 mild borderline Obstructive sleep apnea syndrome, moderate (Acute) study 12/18/18 dr. 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 for treatment of sleep disordered breathing [place] cardiac risk 10-20% in next 10 years (Acute) Irritable colon (Acute 04/19/13) Migraine (Acute 04/19/13) Sleep related leg cramps (Acute) 09/14/18 ov at [facility] Snoring (Acute) 09/14/18 ov at [facility] GERD (gastroesophageal reflux disease) (Chronic) Stress (Acute 07/01/17) Pure hypercholesterolemia (Acute) Lumbosacral neuritis (Acute 10/14/12) Thoracic or lumbosacral neuritis or radiculitis, unspecified (Acute 10/14/12) Family history of breast cancer (Acute 10/25/14) Essential hypertension (Acute 12/22/12) Acquired absence of both cervix and uterus (Acute 01/13/17) VIVEK for fibroids - part of one ovary remains Abdominal adhesions (Acute) Hx recurrent SBO w/ several MIKA. 01/2016 colovaginal fistula. resolved with repeat laparotomy and colostomy. Lumbar radiculopathy (Acute) Lumbar disc displacement without myelopathy (Acute) Postoperative ileus (Acute) Heart burn (Acute) ostomy (Acute) Open abdominal wall wound (Acute) Colovaginal fistula (Acute) incision (Acute) Leukocytosis (leucocytosis) (Acute) S/P colostomy takedown (Chronic) Bowel obstruction (Acute) Medical History Anemia Colovaginal fistula Depression GERD (gastroesophageal reflux disease) Hypercholesterolemia Hypertension Incisional hernia Infertility, female Intestinal anastomotic leak Migraine Ovarian cyst, left SBO (small bowel obstruction) SBO (small bowel obstruction) Small bowel obstruction due to adhesions Ventral hernia Surgical History Abdominal hysterectomy Appendectomy Arthroplasty of knee right Colectomy and removal of left ovarian cyst 2014 Colostomy 201401/23/16 diverting transverse loop colostomy Dr Camargo colostomy takedown and MIKA (11/14/15) colostomy takedown and MIKA (07/22/17) colovaginal fistula and abd wall hernia (01/23/16) hernia abdominal wall repair (01/23/16) Dr Camargo Oophrectomy, Both Reduction mammoplasty Right subclavian vein triple lumen central line placement (01/23/16) by Dr Horne, access needed for colovaginal fistula repair Rotator Cuff Repair left shoulder Sigmoidoscopy (05/28/17) Tonsillectomy and adenoidectomy transforaminal nerve root block (04/27/14) Dr White steroid injection Family History Mother , Alzheimers Tuberculosis Hyperlipidemia Breast cancer Father Heart disease Other Diabetes Ovarian cancer Social History Smoking/Tobacco Use Status: Never Smoking risk assessment performed?: Yes Alcohol Intake: current Alcohol Intake frequency: a few times a month Alcohol type: wine Drug use: Never Substance use type: does not use Household members: significant other Housing: house Number of Children: 1 number of grandchildren: 0 Communication Needs: Corrective Lenses 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 Working smoke detector in home: Yes Fire extinguisher in home: Yes Carbon monox detector in home: Yes Do you feel safe at home: Yes Do you feel safe in your relationship?: Yes Female Reproductive History Menstrual Menopause type: surgical Meds Allergies and Home Medications Allergies Allergy/AdvReac Type Severity Reaction Status Date / Time sumatriptan Allergy Severe Anaphylaxsi Verified 09/07/21 20:39 s ciprofloxacin Allergy Unknown Skin Rash Verified 09/07/21 20:39 morphine AdvReac Severe Nausea Verified 09/07/21 20:39 doxycycline monohydrate AdvReac Intermediate vomiting Verified 09/07/21 20:39 [From Vibramycin] Penicillins AdvReac Intermediate Nausea Verified 09/07/21 20:39 tramadol AdvReac Intermediate dizzyness, Verified 09/07/21 20:39 faintness Home Medications Medication Instructions Recorded Confirmed Type acetaminophen 325 mg tablet 650 mg PO Q6H PRN PRN tab 07/25/17 09/07/21 Rx (Tylenol) varicella-zoster glycoE vacc-AS01B 0.5 ml IM ONCE #1 each 07/21/19 07/25/20 Rx adj(PF) 50 mcg/0.5 mL IM susp, kit (Shingrix (PF)) losartan 50 mg-hydrochlorothiazide 1 tab PO DAILY #90 tab 08/02/20 09/07/21 Rx 12.5 mg tablet estradiol 0.5 mg tablet 0.5 mg PO DAILY #90 tab 11/02/20 09/07/21 Rx omeprazole 20 mg capsule,delayed 20 mg PO DAILY #90 cap 01/30/21 09/07/21 Rx release dicyclomine 10 mg capsule 20 mg PO TID #90 tab-cap 02/12/21 09/07/21 Rx lactobacillus combination no.4 3 PO DAILY 09/07/21 History billion cell capsule (Probiotic) Exam Const General: cooperative, healthy appearing, comfortable and no acute distress [facility] Head: normal to inspection, normocephalic and atraumatic Resp Effort & Inspection: normal respiratory effort, able to speak in complete sentences, no audible wheezes and no respiratory distress Cardio Rate: tachycardic Rhythm: regular rhythm GI Inspection: normal to inspection, non-distended and scar Palpation: soft, no guarding and tender (mild generalized) Percussion: dullness to percussion Skin General skin exam: no rashes or lesions noted Neuro General: patient alert, patient awake and patient oriented x3 Results Labs Result diagrams: 09/08/21 07:00 09/08/21 07:00 Labs: Laboratory Results - last 24 hr 09/07/21 09/07/21 21:05 21:05 WBC 9.04 RBC 3.94 Hgb 12.0 Hct 36.4 MCV 92.4 MCH 30.5 MCHC 33.0 RDW 12.8 Plt Count 285 MPV Immature Gran % 0.4 Neutrophils % 78.5 Lymphocytes % 15.5 Monocytes % 5.1 Eosinophils % 0.1 Basophils % 0.4 Nucleated RBC % 0 Absolute Neutrophils 7.09 H Absolute Lymphocytes 1.40 Absolute Monocytes 0.46 Absolute Eosinophils 0.01 Absolute Basophils 0.04 Sodium 140 Potassium 3.2 L Chloride 104 Carbon Dioxide 26.5 Anion Gap 9.5 BUN 26 H Creatinine 1.1 H Estimated GFR/1.73 m2 49.10 Glucose 128 H Calcium 9.2 Total Bilirubin 0.2 AST 16 ALT 20 Alkaline Phosphatase 76 Troponin I < 50 Total Protein 7.1 Albumin 3.8 Lipase 122 Last Vital Signs Temp 97.9 F 09/07/21 20:30 Pulse 87 09/07/21 23:01 Resp 20 09/07/21 23:02 BP 159/74 H 09/07/21 23:01 Pulse Ox 100 09/07/21 23:02
[2021-09-07 23:40] LABS: Source Nasal/Nares
[2021-09-08] VITALS (8 sets, daily range): BP systolic 121–154; BP diastolic 55–71; PULSE 67–92; RESP 16–19; TEMP 36–37.3; O2SAT 95–99
[2021-09-08] MEDS: Benzocaine 20% 60 ML CAN TP (00:02)
[2021-09-08 00:06] LABS: Troponin I < 50 ng/L (<or=60)
[2021-09-08 00:17] LABS: COVID-19 PCR Negative (Negative)
[2021-09-08] MEDS: Normal Saline Flush 10 ML SYR IVP ×2 (01:00→08:24)
[2021-09-08] MEDS: Lactated Ringers 1,000 ML 75 ML IV ×2 (01:01→18:28)
[2021-09-08] MEDS: ACETAMINOPHEN 1,000 MG/100 ML BTL 400 MG IVPB ×3 (01:02→18:10)
[2021-09-08 07:39] LABS: Abs Immature Grans 0.02 10^3/uL (0.0-0.06); Absolute Basophil Count 0.03 10^3/uL (0.0-0.2); Absolute Lymphocyte Count 0.65 10^3/uL (1.2-3.4); Absolute Monocyte Count 0.73 10^3/uL (0.1-0.8); Basophils % 0.3; HCT 37.4 % (36.0-46.0); HGB 12.2 g/dL (11.2-15.7); Immature Grans % 0.2; Lymphocytes % 5.8; MCH 30.5 pg (27.0-33.0); MCHC 32.6 % (32.0-36.0); MCV 93.5 fL (80-95); MPV 11.3 fL (8.0-11.0); Monocytes % 6.5; Neutrophils % 87.2; Nucleated RBC 0 %; Platelet Count 305 10^3/uL (130-400); RDW 12.8 % (11.7-14.6); RDW-SD 44.3 fL; WBC 11.28 10^3/uL (4.4-10.8)
[2021-09-08 07:43] LABS: Absolute Neutrophil Count 9.84 10^3/uL (1.2-6.7)
[2021-09-08 08:08] LABS: ALT 17 U/L (14-59); AST 14 U/L (15-37); Albumin 3.2 g/dL (3.4-5.0); Alkaline Phosphatase 64 U/L (46-116); Anion Gap 8.3 mmol/L (3-11); BUN 21 mg/dL (7-18); Bilirubin, Total 0.4 mg/dL (0.2-1.0); CO2 25.7 mmol/L (21.0-32.0); Calcium 8.2 mg/dL (8.5-10.1); Chloride 107 mmol/L (98-107); Estimated GFR 54.81 (mL/min/1.73m2); Glucose 124 mg/dL (74-106); Magnesium 1.7 mg/dL (1.8-2.4); Potassium 3.2 mmol/L (3.5-5.1); Sodium 141 mmol/L (136-145); Total Protein 6.3 g/dL (6.4-8.2)
[2021-09-08] MEDS: Pantoprazole 40 MG VIAL IVP (08:24)
[2021-09-08] MEDS: Enoxaparin 40 MG/0.4 ML SYR SC (08:24)
[2021-09-08] MEDS: MAGNESIUM SULFATE 2 GM/50 ML BAG IVPB (08:52)
[2021-09-08] MEDS: POTASSIUM CHLORIDE 20 MEQ/100 ML BAG 50 MEQ IVPB (11:01)
--- NOTE | 2021-09-08 19:46 | PDOC.CMIN ---
- If Service Date Differs Date of service: 09/08/21 Time of Service: 19:46 Care Management Initial Assess REASON FOR HOSPITALIZATION:: SBO PAST MEDICAL HISTORY/PAST SURGICAL HISTORY:: All Active Problems. SBO (small bowel obstruction) (Acute). Partial small bowel obstruction (Acute). Small bowel obstruction (Acute). Anemia (Chronic). SBO (small bowel obstruction) (Acute). Encounter for screening for other viral diseases (Acute). Periodic limb movements of sleep (Acute). sleep study 12/18/18 mild borderline. Obstructive sleep apnea syndrome, moderate (Acute). study 12/18/18 dr. alejandra mild to moderate. 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 [place] cardiac risk 10-20% in next 10 years (Acute). Irritable colon (Acute 04/19/13). Migraine (Acute 04/19/13). Sleep related leg cramps (Acute). 09/14/18 [facility] at [facility]. Snoring (Acute). 09/14/18 ov at [facility]. GERD (gastroesophageal reflux disease) (Chronic). Stress (Acute 07/01/17). Pure hypercholesterolemia (Acute). Lumbosacral neuritis (Acute 10/14/12). Thoracic or lumbosacral neuritis or radiculitis, unspecified (Acute 10/14/12). Family history of breast cancer (Acute 10/25/14). Essential hypertension (Acute 12/22/12). Acquired absence of both cervix and uterus (Acute 01/13/17). VIVEK for fibroids - part of one ovary remains. Abdominal adhesions (Acute). Hx recurrent SBO w/ several MIKA. 01/2016 colovaginal fistula. resolved with repeat laparotomy and colostomy. Lumbar radiculopathy (Acute). Lumbar disc displacement without myelopathy (Acute). Postoperative ileus (Acute). Heart burn (Acute). ostomy (Acute). Open abdominal wall wound (Acute). Colovaginal fistula (Acute). incision (Acute). Leukocytosis (leucocytosis) (Acute). S/P colostomy takedown (Chronic). Bowel obstruction (Acute). Medical History. Anemia. Colovaginal fistula. Depression. GERD (gastroesophageal reflux disease). Hypercholesterolemia. Hypertension. Incisional hernia. Infertility, female. Intestinal anastomotic leak. Migraine. Ovarian cyst, left. SBO (small bowel obstruction). SBO (small bowel obstruction). Small bowel obstruction due to adhesions. Ventral hernia. Surgical History. Abdominal hysterectomy. Appendectomy. Arthroplasty of knee. right. Colectomy. and removal of left ovarian cyst. 2015. Colostomy. 2015. 01/23/16 diverting transverse loop colostomy Dr Camargo. colostomy takedown and MIKA (11/14/15). colostomy takedown and MIKA (07/22/17). colovaginal fistula and abd wall hernia (01/23/16). hernia abdominal wall repair (01/23/16). Dr Camargo. Oophrectomy, Both. Reduction mammoplasty. Right subclavian vein triple lumen central line placement (01/23/16). by Dr Horne, access needed for colovaginal fistula repair. Rotator Cuff Repair. left shoulder. Sigmoidoscopy (05/28/17). Tonsillectomy and adenoidectomy. transforaminal nerve root block (04/27/14). Dr White. steroid injection PREVIOUS FUNCTIONAL STATUS/SOCIAL/FAMILY SUPPORTS:: Debo lives in a single family home in [place] with her friend Oz Wood. She has one adult child who lives in [place]. 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 She is independent at baseline. CURRENT FUNCTIONAL STATUS:: Debo was sitting up in bed when CM met with her. She was pleasant and engaged in conversation. She reported that she has been hospitalized for this previously, and she is comfortable at [facility]. She recently retired from [employer], so she has seen many familiar faces during her admission, which is comforting for her. She stated that per MD, she will likely be here for a few days. She has an NG tube placed currently. CM will continue to follow. ADVANCE DIRECTIVES:: On file- Oz [place] agent Has patient been provided with info about the portal/API?: Yes Did the patient sign up for the portal?: Yes (active) CODE STATUS:: Full Code INSURANCE COVERAGE / FINANCIAL ISSUES:: [facility]/ [facility] Only Health Plans CURRENT HOME/COMMUNITY SERVICES/EQUIPMENT:: No current services or equipment. PRIMARY CARE PHYSICIAN:: Kristen Cline POTENTIAL DISCHARGE NEEDS:: Follow up with surgeon, PCP and discharge plan of care PATIENT/FAMILY EDUCATION NEEDS:: Discharge plan, limitations, follow up plan, Ask Me Three ANTICIPATED BARRIERS TO DISCHARGE:: None TRANSPORTATION:: Via private vehicle with Oz PLAN:: Debo will likely be discharged home with no new services. She will follow up with her community providers and discharge plan of care. CM will continue to support patient, family and discharge planning needs.
[2021-09-09] MEDS: Pantoprazole 40 MG VIAL IVP (07:28)
[2021-09-09] MEDS: Enoxaparin 40 MG/0.4 ML SYR SC (07:29)
[2021-09-09] MEDS: ACETAMINOPHEN 1,000 MG/100 ML BTL 400 MG IVPB ×2 (07:29→21:12)
[2021-09-09] MEDS: Normal Saline Flush 10 ML SYR IVP (07:29)
[2021-09-09 07:33] LABS: Abs Immature Grans 0.02 10^3/uL (0.0-0.06); Absolute Basophil Count 0.03 10^3/uL (0.0-0.2); Absolute Lymphocyte Count 1.99 10^3/uL (1.2-3.4); Absolute Monocyte Count 0.46 10^3/uL (0.1-0.8); Absolute Neutrophil Count 5.72 10^3/uL (1.2-6.7); Basophils % 0.4; HCT 34.2 % (36.0-46.0); HGB 10.9 g/dL (11.2-15.7); Immature Grans % 0.2; Lymphocytes % 24.2; MCH 30.8 pg (27.0-33.0); MCHC 31.9 % (32.0-36.0); MCV 96.6 fL (80-95); MPV 11.6 fL (8.0-11.0); Monocytes % 5.6; Neutrophils % 69.6; Nucleated RBC 0 %; Platelet Count 259 10^3/uL (130-400); RBC 3.54 10^6/uL (3.93-5.22); RDW 13.2 % (11.7-14.6); WBC 8.22 10^3/uL (4.4-10.8)
[2021-09-09 07:35] VITALS: BP 165/75; PULSE 85; RESP 18; TEMP 37; O2SAT 98
[2021-09-09 07:37] LABS: Anion Gap 10.3 mmol/L (3-11); BUN 16 mg/dL (7-18); CO2 24.7 mmol/L (21.0-32.0); CREATININE 0.8 mg/dL (0.55-1.02); Chloride 107 mmol/L (98-107); Glucose 67 mg/dL (74-106); Potassium 3.3 mmol/L (3.5-5.1); Sodium 142 mmol/L (136-145)
--- NOTE | 2021-09-09 11:14 | W.PM.PROGNOT ---
Date of Service Date of service: 09/09/21 Time of Service: 11:15 Assessment and Plan Assessment and plan (1) SBO (small bowel obstruction): Status: Acute Assessment and plan: -Continue conservative treatment with NG tube, IV fluids and bowel rest -IV protonix for GI ppx -SQ Lovenox for DVT ppx -OK to disconnect from suction to ambulate, walked the halls today -Replete electrolytes -PRN analgesics as written -Hold home PO meds for now -Overall clinical improvement, awaiting return of bowel function -Obs series in AM (2) GERD (gastroesophageal reflux disease): Status: Chronic (3) Abdominal adhesions: Status: Acute Subjective Subjective Patient reports: no new complaints, feels better, flatus and no bowel movement Exam Const General: cooperative, healthy appearing, comfortable and no acute distress Other: sitting in chair at side of bed HENMT Head: normal to inspection, normocephalic and atraumatic Resp Effort & Inspection: normal respiratory effort, able to speak in complete sentences, no audible wheezes and no respiratory distress Cardio Rate: tachycardic Rhythm: regular rhythm GI Inspection: normal to inspection, non-distended and scar Palpation: soft, no guarding and nontender Percussion: dullness to percussion Skin General skin exam: no rashes or lesions noted Neuro General: patient alert, patient awake and patient oriented x3 Objective Last Vital Signs Temp 98.6 F 09/09/21 07:35 Pulse 85 09/09/21 07:35 Resp 18 09/09/21 07:35 BP 165/75 H 09/09/21 07:35 Pulse Ox 98 09/09/21 07:35 Laboratory Results - last 24 hr 09/09/21 09/09/21 06:40 06:40 WBC 8.22 RBC 3.54 L Hgb 10.9 L Hct 34.2 L MCV 96.6 H D MCH 30.8 MCHC 31.9 L RDW 13.2 Plt Count 259 MPV 11.6 H Immature Gran % 0.2 Neutrophils % 69.6 Lymphocytes % 24.2 Monocytes % 5.6 Eosinophils % 0.0 Basophils % 0.4 Nucleated RBC % 0 Absolute Neutrophils 5.72 Absolute Lymphocytes 1.99 Absolute Monocytes 0.46 Absolute Eosinophils 0.00 Absolute Basophils 0.03 Sodium 142 Potassium 3.3 L Chloride 107 Carbon Dioxide 24.7 Anion Gap 10.3 BUN 16 Creatinine 0.8 Estimated GFR/1.73 m2 >= 60.00 Glucose 67 L D Calcium 8.0 L Magnesium 2.0
[2021-09-09] MEDS: POTASSIUM CHLORIDE 20 MEQ/100 ML BAG 25 MEQ IVPB ×2 (12:20→19:06)
[2021-09-09] MEDS: Lactated Ringers 1,000 ML 75 ML IV (15:00)
[2021-09-09 15:25] VITALS: BP 161/81; PULSE 80; RESP 17; TEMP 36.8; O2SAT 99
[2021-09-10 00:41] VITALS: BP 157/75; PULSE 68; RESP 17; TEMP 37.2; O2SAT 100
[2021-09-10] MEDS: Lactated Ringers 1,000 ML 75 ML IV (01:41)
[2021-09-10 06:48] LABS: Abs Immature Grans 0.01 10^3/uL (0.0-0.06); Absolute Basophil Count 0.03 10^3/uL (0.0-0.2); Absolute Lymphocyte Count 2.49 10^3/uL (1.2-3.4); Absolute Neutrophil Count 3.65 10^3/uL (1.2-6.7); Basophils % 0.5; HCT 34.2 % (36.0-46.0); HGB 10.9 g/dL (11.2-15.7); Immature Grans % 0.2; Lymphocytes % 37.8; MCH 30.8 pg (27.0-33.0); MCHC 31.9 % (32.0-36.0); MCV 96.6 fL (80-95); MPV 11.1 fL (8.0-11.0); Monocytes % 6.1; Neutrophils % 55.4; Nucleated RBC 0 %; Platelet Count 263 10^3/uL (130-400); RBC 3.54 10^6/uL (3.93-5.22); RDW 13.1 % (11.7-14.6); RDW-SD 46.6 fL; WBC 6.58 10^3/uL (4.4-10.8)
[2021-09-10 07:17] VITALS: BP 147/71; PULSE 70; RESP 17; TEMP 36.8; O2SAT 99
[2021-09-10 07:31] LABS: Anion Gap 13.5 mmol/L (3-11); BUN 16 mg/dL (7-18); CO2 20.5 mmol/L (21.0-32.0); CREATININE 0.8 mg/dL (0.55-1.02); Calcium 8.1 mg/dL (8.5-10.1); Chloride 106 mmol/L (98-107); Glucose 50 mg/dL (74-106); Magnesium 1.9 mg/dL (1.8-2.4); Potassium 3.9 mmol/L (3.5-5.1); Sodium 140 mmol/L (136-145)
[2021-09-10] MEDS: Pantoprazole 40 MG VIAL IVP (07:43)
[2021-09-10] MEDS: Normal Saline Flush 10 ML SYR IVP (07:43)
[2021-09-10] MEDS: Enoxaparin 40 MG/0.4 ML SYR SC (07:44)
--- NOTE | 2021-09-10 08:00 | DI.RAD_ITS ---
Exam(s) XR ABDOMEN FLAT UPRIGHT EXAM: 2D digital imaging was performed. CLINICAL HISTORY: evaluate SBO. COMPARISON: CT CT ABDOMEN PELVIS W from 09/07/2021 TECHNIQUE: Supine and upright views of the abdomen was performed. FINDINGS: Nasogastric tube projects in the stomach. No significant gastric or small bowel distension. Scatter ed air gas and stool in is noted in the colon. No free air. Visualized portions of the lung bases a re clear. IMPRESSION: Nasogastric tube in stomach. No visible dilated small bowel. DATA REPOSITORY: RADIATION DOSE DELIVERED:
[2021-09-10] MEDS: DEXTROSE 5%-0.45% SALINE 1,000 ML 75 ML IV (08:53)
[2021-09-10] MEDS: ACETAMINOPHEN 1,000 MG/100 ML BTL 400 MG IVPB (09:02)
--- NOTE | 2021-09-10 10:05 | W.NUTCONSULT ---
Date of service: 09/10/21 Time of Service: 10:05 Nutritional Consult ASSESSMENT: 71 year old female returns with SBO with 9% weight loss in last 90 days indicating moderate malnutrition. BMI wnl. On day 4 of NPO status with hypoglycemia. D5 initiated this AM. Previous SBO in July 2021. At high nutritional risk in view of significant weight loss in last 90 days. Recommend initiate TPN if unable to advance diet in next 48 hours. Estimated Needs: 8299-0165 kcal, 66-82 g protein, 45-55 g fat NUTRITIONAL DIAGNOSIS: moderate malnutrition in view of 9% weight loss in last 90 days inability to consume macronutrient and fluid by mouth in view of SBO- on bowel rest INTERVENTION: Advance diet as tolerated Consider TPN : recommend 4.25/10 2000 ml with 200 ml 20% lipid providing total of 200 g CHO, 84 g protein, 40 g fat= 1380 kcal MONITORING AND EVALUATION: po intake, labs, weight Time Spent in Nutritional Counseling and Treatment: 0
[2021-09-10 15:04] VITALS: BP 127/71; PULSE 57; RESP 17; TEMP 36.2; O2SAT 99
--- NOTE | 2021-09-10 15:54 | CMPROGNOTE_ITS ---
- If Service Date Differs Date of service: 09/10/21 Time of Service: 15:54 Care Management Progress Note S/O: Debo is well known to this health underwriter, due to previous admissions, she has no needs at this time and continues to be closely monitored and treated. CM continues to follow. A: 71 year old female admitted to [facility] 09/07/21 for SBO P: Debo will likely be discharged home with no new services. She will follow up with her community providers and discharge plan of care. CM will cont inue to support patient, family and discharge planning needs.
--- NOTE | 2021-09-10 16:49 | W.PM.PROGNOT ---
Date of Service Date of service: 09/10/21 Time of Service: 15:30 Assessment and Plan Assessment and plan (1) SBO (small bowel obstruction): Status: Acute Assessment and plan: A: SBO has resolved P: -IV protonix switched to PO, restrated HTN medication -SQ Lovenox for DVT ppx -Diet: clears and advance as tolerated to regular diet - D/C to home tomorrow if she does well overnight (2) GERD (gastroesophageal reflux disease): Status: Chronic (3) Abdominal adhesions: Status: Acute Subjective Subjective Interval history since last seen: Debo is doing well. Her Xray showed resolution of her SBO. She has been passing flatus. She has had a BM. She is tolerating clears. Pain has resolved for the most part Exam [facility] Head: normocephalic and atraumatic Resp Effort & Inspection: normal respiratory effort Cardio Rate: regular rate Rhythm: regular rhythm GI Palpation: soft, no hepatosplenomegaly and nontender Auscultation: normal bowel sounds Objective Last Vital Signs Temp 97.2 F L 09/10/21 15:04 Pulse 57 L 09/10/21 15:04 Resp 17 09/10/21 15:04 BP 127/71 09/10/21 15:04 Pulse Ox 99 09/10/21 15:04 Laboratory Results - last 24 hr 09/10/21 09/10/21 09/10/21 06:37 06:37 06:37 WBC 6.58 RBC 3.54 L Hgb 10.9 L Hct 34.2 L MCV 96.6 H MCH 30.8 MCHC 31.9 L RDW 13.1 Plt Count 263 MPV 11.1 H Immature Gran % 0.2 Neutrophils % 55.4 Lymphocytes % 37.8 Monocytes % 6.1 Eosinophils % 0.0 Basophils % 0.5 Nucleated RBC % 0 Absolute Neutrophils 3.65 Absolute Lymphocytes 2.49 Absolute Monocytes 0.40 Absolute Eosinophils 0.00 Absolute Basophils 0.03 Sodium 140 Potassium 3.9 Chloride 106 Carbon Dioxide 20.5 L Anion Gap 13.5 H BUN 16 Creatinine 0.8 Estimated GFR/1.73 m2 >= 60.00 Glucose 50 L Calcium 8.1 L Phosphorus 3.0 Magnesium 1.9
--- NOTE | 2021-09-10 19:22 | NUR.NOTE ---
Nursing Note: Patient was advanced to soft diet for dinner, She tolerated well with no N&V. Still no BM, but patient is passing flatus
--- NOTE | 2021-09-10 19:32 | NUR.NOTE ---
Nursing Note: Patient became very frightened and locked herself in her bathroom during the code alvarenga this evening, while the patient was out in the vences, she was still shaking and frightened 45 minutes later. She was reassurred that there were plans in place to provide for her security
[2021-09-11 00:55] VITALS: BP 166/80; PULSE 63; RESP 16; TEMP 36.8; O2SAT 99
--- NOTE | 2021-09-11 07:30 | W.PM.PROGNOT ---
Date of Service Date of service: 09/11/21 Time of Service: 07:31 Assessment and Plan Assessment and plan (1) SBO (small bowel obstruction): Status: Acute Assessment and plan: Patient continues to feel much improved this weekend. Tolerating regular, soft diet No fevers, chills or night sweats. D/C home later today. (2) GERD (gastroesophageal reflux disease): Status: Chronic (3) Abdominal adhesions: Status: Acute Subjective Subjective Interval history since last seen: Arrive with patient resting comfortably. She denies any abdominal pain, nausea or vomiting. She tolerated mashed potatoes and chicken yesterday evening. She is eager to return home. She denies having any fevers, chills or night sweats. Exam Const General: cooperative, healthy appearing and comfortable Orientation: alert and oriented x3 Resp Effort & Inspection: normal respiratory effort, no audible wheezes and no cough Objective Last Vital Signs Temp 36.8 C 09/11/21 00:55 Pulse 63 09/11/21 00:55 Resp 16 09/11/21 00:55 BP 166/80 H 09/11/21 00:55 Pulse Ox 99 09/11/21 00:55 Laboratory Results - last 24 hr 09/10/21 09/10/21 06:37 06:37 Sodium 140 Potassium 3.9 Chloride 106 Carbon Dioxide 20.5 L Anion Gap 13.5 H BUN 16 Creatinine 0.8 Estimated GFR/1.73 m2 >= 60.00 Glucose 50 L Calcium 8.1 L Phosphorus 3.0 Magnesium 1.9
--- NOTE | 2021-09-11 07:35 | DSE_ITS ---
Date of service: 09/11/21 Time of Service: 07:35 DS: Diagnosis Discharge Diagnosis (1) SBO (small bowel obstruction): Status: Acute (2) GERD (gastroesophageal reflux disease): Status: Chronic (3) Abdominal adhesions: Status: Acute Discharge Plan Disposition Patient Disposition: HOME Condition: Stable Discharge Details Reason For Visit: Small Bowel Obstruction Admit Date/Time: 09/07/21 23:16 Admit Provider: Shahana Fernandez Attending Provider: Shahana Fernandez Primary Care Provider: Kristen Cline Hospital Course Hospital Course: 71 y/o female well known to the surgical group presented to the ER on 09/07/21 with epigastric pain and nausea. Evidence of SBO noted on CT scan. patient was treated with medically with NG tube and bowel rest. SBO resolved on 09/10, patient was able to tolerate a regular, soft diet. Patient is ready to d/c home. Recommend Follow up in 1-2 weeks with PCP. Home Meds and New Rx's Prescriptions: Continued Shingrix (PF) 50 mcg/0.5 mL suspension for reconstitution 0.5 ml IM ONCE Qty: 1 1RF Rx Instructions: Administer one dose and repeat in 2-6 months losartan-hydrochlorothiazide 50-12.5 mg tablet 1 tab PO DAILY Qty: 90 3RF estradiol 0.5 mg tablet 0.5 mg PO DAILY Qty: 90 2RF omeprazole 20 mg capsule,delayed release(DR/EC) 20 mg PO DAILY Qty: 90 3RF dicyclomine 10 mg capsule 20 mg PO TID Qty: 90 5RF acetaminophen [Tylenol] 325 MG tablet 650 mg PO Q6H PRN PRN0RF Probiotic 3 billion cell Capsule PO DAILY 0RF Rx Instructions: unknown dose Discharge Instructions Instructions: Bowel Obstruction (DC) Referrals: Kristen Cline MD [Primary Care Provider] - Activity:: Activity as Tolerated Equipment/Supplies:: No Equipment Needed Diet:: As Tolerated DS: Summary Time Spent with Patient providing and/or coordinating discharge services: Less than 30 minutes Status at Discharge Functional status at discharge: independent ambulation Overall status at discharge: patient is back to baseline Mental Status: mental status grossly normal Speech and Movement: speech and movement normal Mood: congruent mood Affect: normal affect Exam Const General: cooperative, healthy appearing and comfortable Orientation: alert and oriented x3 Resp Effort & Inspection: normal respiratory effort, no audible wheezes and no cough GI Inspection: normal to inspection Palpation: soft, no guarding and nontender Psych Mental Status: mental status grossly normal Speech and Movement: speech and movement normal Mood: congruent mood Affect: normal affect DS: Data Vitals/I&O Vitals and I&O: Vital Signs Temperature 36.8 C 09/11/21 00:55 Temperature Source Tympanic 09/11/21 00:55 Pulse 63 09/11/21 00:55 Pulse Rhythm Regular 09/11/21 02:53 Pulse 92 H 09/08/21 00:00 Respiratory Rate 16 09/11/21 00:55 Respiratory Effort Non-Labored 09/11/21 02:53 Respiratory Depth Normal 09/11/21 02:53 Respiratory Pattern Normal 09/11/21 02:53 Blood Pressure 166/80 H 09/11/21 00:55 Blood Pressure Mean 69 09/08/21 00:10 Blood Pressure Position Supine 09/07/21 20:30 Pulse Oximetry 99 09/11/21 00:55 Oxygen Delivery Method Room Air 09/11/21 00:55 Oxygen Flow Rate 0 09/11/21 00:55 Pain Level 0 09/11/21 00:55 Comment 09/07/21 20:30 Intake & Output 09/10/21 09/11/21 09/11/21 18:59 06:59 18:59 Intake Total 1652.5 / 1652.5 Output Total 850 / 2450 1600 / 2450 Balance 802.5 / -797.5 -1600 / -797.5 Intake: IV 1292.5 / 1292.5 Oral 360 / 360 Output: Urine 850 / 2450 1600 / 2450 Other: Urine Color Yellow Yellow Urine Appearance Clear Clear Urine Odor Normal None Comment Per patient she voided Voiding Methods Toilet Toilet Data Completed and Pending Labs on day of discharge: Labs from last 24 hours 09/10/21 09/10/21 06:37 06:37 Sodium 140 Potassium 3.9 Chloride 106 Carbon Dioxide 20.5 L Anion Gap 13.5 H BUN 16 Creatinine 0.8 Estimated GFR/1.73 m2 >= 60.00 Glucose 50 L Calcium 8.1 L Phosphorus 3.0 Magnesium 1.9 PFSH All Active Problems (Updated 09/07/21 @ 23:19 by Oz Lopez MD) SBO (small bowel obstruction) (Acute) Partial small bowel obstruction (Acute) Small bowel obstruction (Acute) Anemia (Chronic) SBO (small bowel obstruction) (Acute) Encounter for screening for other viral diseases (Acute) Periodic limb movements of sleep (Acute) sleep study 12/18/18 mild borderline Obstructive sleep apnea syndrome, moderate (Acute) study 12/18/18 dr. 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 for treatment of sleep disordered breathing [place] cardiac risk 10-20% in next 10 years (Acute) Irritable colon (Acute 04/19/13) Migraine (Acute 04/19/13) Sleep related leg cramps (Acute) 09/14/18 ov at [facility] Snoring (Acute) 09/14/18 ov at [facility] GERD (gastroesophageal reflux disease) (Chronic) Stress (Acute 07/01/17) Pure hypercholesterolemia (Acute) Lumbosacral neuritis (Acute 10/14/12) Thoracic or lumbosacral neuritis or radiculitis, unspecified (Acute 10/14/12) Family history of breast cancer (Acute 10/25/14) Essential hypertension (Acute 12/22/12) Acquired absence of both cervix and uterus (Acute 01/13/17) VIVEK for fibroids - part of one ovary remains Abdominal adhesions (Acute) Hx recurrent SBO w/ several MIKA. 01/2016 colovaginal fistula. resolved with repeat laparotomy and colostomy. Lumbar radiculopathy (Acute) Lumbar disc displacement without myelopathy (Acute) Postoperative ileus (Acute) Heart burn (Acute) ostomy (Acute) Open abdominal wall wound (Acute) Colovaginal fistula (Acute) incision (Acute) Leukocytosis (leucocytosis) (Acute) S/P colostomy takedown (Chronic) Bowel obstruction (Acute) Medical History Anemia Colovaginal fistula Depression GERD (gastroesophageal reflux disease) Hypercholesterolemia Hypertension Incisional hernia Infertility, female Intestinal anastomotic leak Migraine Ovarian cyst, left SBO (small bowel obstruction) SBO (small bowel obstruction) Small bowel obstruction due to adhesions Ventral hernia Surgical History Abdominal hysterectomy Appendectomy Arthroplasty of knee right Colectomy and removal of left ovarian cyst 2014 Colostomy 201401/23/16 diverting transverse loop colostomy Dr Camargo colostomy takedown and MIKA (11/14/15) colostomy takedown and MIKA (07/22/17) colovaginal fistula and abd wall hernia (01/23/16) hernia abdominal wall repair (01/23/16) Dr Camargo Oophrectomy, Both Reduction mammoplasty Right subclavian vein triple lumen central line placement (01/23/16) by Dr Horne, access needed for colovaginal fistula repair Rotator Cuff Repair left shoulder Sigmoidoscopy (05/28/17) Tonsillectomy and adenoidectomy transforaminal nerve root block (04/27/14) Dr White steroid injection Family History Mother , Alzheimers Tuberculosis Hyperlipidemia Breast cancer Father Heart disease Other Diabetes Ovarian cancer Social History Smoking/Tobacco Use Status: Never Smoking risk assessment performed?: Yes Alcohol Intake: current Alcohol Intake frequency: a few times a month Alcohol type: wine Drug use: Never Substance use type: does not use Household members: significant other Housing: house Number of Children: 1 number of grandchildren: 0 Communication Needs: Corrective Lenses 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 [employer] 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: female What is your relationship status?: living with partner Panel score (0-1 are the most socially isolated patients): 1 What type of physical activity do you participate in: regular exercise and other Details: physically active daily Seatbelt use: always Drive 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
[2021-09-11 07:38] VITALS: BP 148/83; PULSE 63; RESP 17; TEMP 36.6; O2SAT 98
[2021-09-11 08:04] VITALS: BP 137/76; PULSE 66; RESP 14; TEMP 36.8; O2SAT 97
[2021-09-11] MEDS: Enoxaparin 40 MG/0.4 ML SYR SC (08:20)
[2021-09-11] MEDS: Losartan 50 MG TAB PO (08:21)
[2021-09-11] MEDS: Omeprazole 20 MG CAPCR PO (08:21)
[2021-09-11] MEDS: hydroCHLOROthiazide 12.5 MG TAB PO (08:21)
--- NOTE | 2021-09-11 13:47 | PDOC.CMDIS ---
- If Service Date Differs Date of service: 09/11/21 Time of Service: 13:47 LACE Index Scoring Tool - Questions: Length of Stay (in days): 4 - 6 Acuity (Admit via E.D.?): Yes E.D. Visits: 1 - Answers: Total Score: 8 Risk of Readmission: Low Risk Care Management Discharge Reason for Hospitalization: SBO Discharge Plan: Debo will discharge home with no new services. She will follow up with her community providers and discharge plan of care. She will transport via private vehicle with her significant other. Patient/Family Education Needs: Review discharge instructions, discuss Ask Me Three.
== END 2021-09-11 11:04 | disposition home or self-care (01) | DRG 390 ==
LOC: ER 23:36 → MS 09-08 00:15
PROVIDERS: Admitting Provider Surgery; Emergency Provider Emergency Medicine; PCP Internal Medicine; Visit Provider Surgery
DX: K56.609 Unspecified intestinal obstruction, unspecified as to partial versus complete obstruction (principal); K21.9 Gastro-esophageal reflux disease without esophagitis; D64.9 Anemia, unspecified; G47.61 Periodic limb movement disorder; G47.33 Obstructive sleep apnea (adult) (pediatric); G43.909 Migraine, unspecified, not intractable, without status migrainosus; E78.00 Pure hypercholesterolemia, unspecified; I10 Essential (primary) hypertension; M54.16 Radiculopathy, lumbar region; K66.0 Peritoneal adhesions (postprocedural) (postinfection)
CPT/HCPCS: 36415; 80048; 80053; 83690; 87635; 93005; 96361; 96374; 96375; 96376; 99222; 99232; 99238; 99285; J1650; 74019; 74177; 83735; 84100; 84484; 85025; 93010; J0131; J2405; J2765; J3480; J3490

== ENCOUNTER 2021-09-19 03:02 | Outpatient (CLI) | payer MEDICARE, SELFPAY ==
[2021-09-19 16:44] LABS: Anion Gap 9.9 mmol/L (3-11); BUN 23 mg/dL (7-18); CO2 27.1 mmol/L (21.0-32.0); CREATININE 0.9 mg/dL (0.55-1.02); Calculated LDL 160 mg/dL (<100); Chloride 104 mmol/L (98-107); Cholesterol 249 mg/dL (<200); Glucose 99 mg/dL (74-106); HDL Cholesterol 48 mg/dL (40-60); Sodium 141 mmol/L (136-145); Triglyceride 208 mg/dL (<150)
== END 2021-09-19 03:03 | disposition home or self-care (01) ==
LOC: LBO 03:02
PROVIDERS: PCP Internal Medicine; Visit Provider Internal Medicine
DX: I10 Essential (primary) hypertension (principal); E78.00 Pure hypercholesterolemia, unspecified
CPT/HCPCS: 36415; 80048; 80061

== ENCOUNTER 2022-04-15 04:04 | Outpatient (CLI) | payer MEDICARE, SELFPAY ==
[2022-04-15 08:44] LABS: Calculated LDL 76 mg/dL (<100); Cholesterol 163 mg/dL (<200); HDL Cholesterol 59 mg/dL (40-60); Triglyceride 143 mg/dL (<150)
== END 2022-04-15 04:05 | disposition home or self-care (01) ==
LOC: LBO 04:04
PROVIDERS: PCP Internal Medicine; Visit Provider Internal Medicine
DX: E78.00 Pure hypercholesterolemia, unspecified (principal)
CPT/HCPCS: 36415; 80061

== ENCOUNTER 2022-11-14 00:45 | Outpatient (CLI) | payer MEDICARE, OTHER, SELFPAY ==
--- NOTE | 2022-11-14 08:45 | DI.MAMMO_ITS ---
Exam(s) US BREAST RT COMPLETE MG MAMMO DIAGNOSTIC BI EXAM: MG MAMMO DIAGNOSTIC BI CLINICAL HISTORY: Pain behind right nipple, dense breast bilat N64.4 MASTODYNIA REDUCTION. TECHNIQUE: Both CC and MLO mammographic images of both breasts were obtained with 3D tomosynthesis t echnique and utilizing computer aided detection (CAD). Also performed additional spot compression vi ew of the retroareolar region of the right breast which is apparently area of concern where the patie nt feels recent onset pain. She denies feeling a new lump. She also denies nipple discharge Also performed complete right breast ultrasound, including all 4 quadrants, the retroareolar region, and the right axilla. COMPARISON: Prior mammograms were reviewed. FINDINGS: BILATERAL MAMMOGRAM: Fibroglandular tissue is again noted be moderately dense. No new obvious masses nor malignant-appearing microcalcification groups in either breast. No new architectural distortion or skin thickening-traction. COMPLETE RIGHT BREAST ULTRASOUND: No evidence of solid or significant cystic lesions in all 4 quadrants. Also no significant focal ult rasound findings in the retroareolar region. Scanning of the right axilla is negative for significant adenopathy IMPRESSION: 1. Dense bilateral fibroglandular tissue. No radiographic evidence of malignancy. 2. Negative complete right breast ultrasound. Appropriate follow-up would be repeat breast imaging in 3 month if symptoms continue. The patient was informed of the findings and follow-up recommendations myself prior to leaving the de partment today. BI-RADS Category 3 - 3 month - Probably Benign Finding: Recommend follow-up mammography in 3 months Breast Density - Category C - Heterogeneously dense Breast density Category C or D implies that the patient has dense breast tissue. Dense breast tissue can make it harder to find cancer on a mammogram. Dense breast tissue is also associated with an incr eased risk of breast cancer. This information about the result of the mammogram report was provided to the patient to raise their awareness. Use this report when you speak with the patient about their risks for breast cancer, which includes their family history. At that time, you may recommend additional screening tests (Ultrasoun d or MRI) as these tests may add significant information. A negative radiographic report should not delay biopsy if a dominant or clinically suspicious mass is present. Up to ten percent of cancers are not identified on mammography. A negative report may reinforce clinical impression. Adenosis and dense breasts may obscure an underlying neoplasm. False positive reports average 6 to 10%. Patient will receive a letter notifying them of these results.
== END 2022-11-14 01:05 ==
LOC: DI 00:45
PROVIDERS: PCP Nurse Practitioner Adult Health; Visit Provider Nurse Practitioner Women's Health
DX: N64.4 Mastodynia (principal); Z12.31 Encounter for screening mammogram for malignant neoplasm of breast
CPT/HCPCS: 76642; 77062; 77066; G0279

== ENCOUNTER 2023-07-22 05:14 | Outpatient (CLI) | payer MEDICARE, OTHER, SELFPAY ==
[2023-07-22 11:24] LABS: Anion Gap 8.9 mmol/L (3-11); BUN 21 mg/dL (7-18); CO2 32.1 mmol/L (21.0-32.0); Calcium 9.7 mg/dL (8.5-10.1); Calculated LDL 77 mg/dL (<100); Chloride 102 mmol/L (98-107); Cholesterol 148 mg/dL (<200); Estimated GFR 59.86 (mL/min/1.73m2); Glucose 97 mg/dL (74-106); HDL Cholesterol 60 mg/dL (40-60); Potassium 3.9 mmol/L (3.5-5.1); Sodium 143 mmol/L (136-145); Triglyceride 55 mg/dL (<150)
== END 2023-07-22 05:15 | disposition home or self-care (01) ==
LOC: LBO 05:15
PROVIDERS: Absent Provider Nurse Practitioner Adult Health; PCP Nurse Practitioner Adult Health; Referring Provider Nurse Practitioner Adult Health; Visit Provider Nurse Practitioner Adult Health
DX: I10 Essential (primary) hypertension (principal); E78.00 Pure hypercholesterolemia, unspecified
CPT/HCPCS: 36415; 80048; 80061

== ENCOUNTER → 2023-08-27 02:45 | Outpatient (CLI) | payer MEDICARE, OTHER, SELFPAY ==
--- NOTE | 2023-08-27 07:45 | DI.RAD_ITS ---
Exam(s) XR CHEST 2V PA LATERAL EXAM: XR CHEST 2V PA LATERAL CLINICAL HISTORY: CHRONIC COUGH, ? ACUTE PROCESS,R05.3 TECHNIQUE: 2D digital imaging was performed. Two views. COMPARISON: CR XR PORTABLE CHEST AP POST LINE from 07/18/2020 FINDINGS: HEART: Normal size. Aorta: Not dilated. PULMONARY VASCULATURE: Normal. LUNGS: Clear. PLEURAL SPACE: No pleural effusion or pneumothorax. BONE:Unremarkable for age. Soft tissues: Unremarkable. IMPRESSION: No acute abnormality. DATA REPOSITORY: RADIATION DOSE DELIVERED:
== END ==
PROVIDERS: PCP Nurse Practitioner Adult Health; Visit Provider Nurse Practitioner Adult Health
DX: R05.3 Chronic cough (principal)
CPT/HCPCS: 71046

== ENCOUNTER → 2023-12-09 01:22 | Outpatient (CLI) | payer MEDICARE, OTHER, SELFPAY ==
--- NOTE | 2023-12-09 07:45 | DI.MAMMO_ITS ---
Exam(s) MAMMO SCREENING EXAM: MAMMO SCREENING CLINICAL HISTORY: screening,z12.39 TECHNIQUE: Mammograms were interpreted according to the usual protocol including computer analysis w Style on Screen CAD system, tomosynthesis and C-view imaging. COMPARISON: 2014 through 2022 FINDINGS: The breasts are composed of heterogeneously dense fibroglandular densities, Breast Density category C . No suspicious masses or suspicious microcalcifications are seen. No skin thickening or abnormal axillary lymph nodes are seen. There has been no significant change from prior exams. IMPRESSION: BI-RADS Category 1, Negative mammogram. Yearly screening mammography is recommended. Breast Density Category C, heterogeneously Dense. The mammogram demonstrates the patient's breast tissue is dense. Dense breast tissue is very common a nd is not abnormal but dense breast tissue can make it harder to find cancer on a mammogram. Also, de nse breast tissue may increase breast cancer risk. This information about the result of the mammogram report was provided to the patient to raise their awareness. Use this report when you speak with the patient about their risks for breast cancer, which includes their family history. At that time, you may recommend additional screening tests (Ultrasound or MRI) as they might be useful based on their r isk. A negative radiographic report should not delay biopsy if a dominant or clinically suspicious mass is present. Up to ten percent of cancers are not identified on mammography. A negative report may reinforce clinical impression. Adenosis and dense breasts may obscure an underlying neoplasm. False positive reports average 6 to 10%.
== END ==
PROVIDERS: PCP Nurse Practitioner Adult Health; Visit Provider Nurse Practitioner Adult Health
DX: Z12.39 Encounter for other screening for malignant neoplasm of breast (principal); Z12.31 Encounter for screening mammogram for malignant neoplasm of breast; R92.333 Mammographic heterogeneous density, bilateral breasts
CPT/HCPCS: 77063; 77067

== ENCOUNTER 2024-05-11 14:14 | Emergency (ER) | payer MEDICARE, OTHER, SELFPAY ==
[2024-05-11 14:19] VITALS: BP 162/75; PULSE 79; RESP 15; TEMP 36.4; O2SAT 98
--- NOTE | 2024-05-11 14:33 | W.ED.GENAD ---
Discharge Plan Disposition Patient Disposition: Home Discharge Details Clinical Impression: Pain in right paraspinal region Primary Care Provider: Yaneli Beck ED Provider: Rajesh Starks Home Meds and New Rx's Prescriptions: New diazepam 5 mg tablet 5 mg PO QD-TID PRNQty: 5 0RF Continued estradiol 0.01 % (0.1 mg/gram) cream 1 appful vaginal DAILY Qty: 42.5 2RF Rx Instructions: Use daily for 14 days then reduce use to twice weekly aspirin 81 mg tablet,chewable 81 mg PO DAILY albuterol sulfate [Ventolin HFA] 90 mcg/actuation HFA aerosol inhaler 1 - 2 puff inhalation Q4H PRN (Reason: shortness of breath or wheezing) Qty: 8.5 3RF dicyclomine 10 mg capsule 20 mg PO TID PRN (Reason: abdominal pain) Qty: 90 5RF atorvastatin 40 mg tablet See Rx Instructions .ROUTE .COMPLEX Qty: 90 3RF Dose Instruction: TAKE 1 TABLET BY MOUTH DAILY Rx Instructions: TAKE 1 TABLET BY MOUTH DAILY losartan-hydrochlorothiazide 50-12.5 mg tablet See Rx Instructions .ROUTE .COMPLEX Qty: 90 3RF Dose Instruction: TAKE 1 TABLET BY MOUTH DAILY Rx Instructions: TAKE 1 TABLET BY MOUTH DAILY venlafaxine 37.5 mg capsule,extended release 24hr 37.5 mg PO DAILY Qty: 90 3RF omeprazole 20 mg capsule,delayed release(DR/EC) 20 mg PO DAILY Qty: 90 3RF acetaminophen [Tylenol] 325 MG tablet 650 mg PO Q6H PRN PRN0RF Discharge Instructions Instructions: Low Back Pain ED Additional Instructions: You are seen in the emerged part for your back pain. Your x-ray showed no sign of any fractures in your hip. As we discussed if you develop fevers nausea vomiting or abdominal pain or if you cannot move your right lower extremity please return to the emergency department. Otherwise please follow-up with your primary care provider later this week. Please also take this medication as needed for pain. Please not drink alcohol or drive after taking this medication. For your pain please take medications as follows: 1. Take acetaminophen (Tylenol), 1,000 mg (two 500 mg tabs) every 6 hours [2. Take ibuprofen (Advil), 200 mg every 6 hours.] HPI General Date/Time Provider Initiated Documentation: 05/11/24 14:26. HPI Narrative: MDM This is an overall very well-appearing normothermic and not tachycardic 73-year-old female with right-sided low back pain history of recent fall and notably low suspicion for fracture for which patient will undergo plain film. No pain out of proportion to suggest necrotizing soft tissue infection. No midline thoracic nor lumbar spinal tenderness to suggest benefit from CT scan. My suspicion is low for hip fracture pelvic insufficiency fracture so I do not feel that the patient requires a CT scan nor an MRI if her screening plain film is unremarkable. No rash to back to suggest zoster. Patient has no history of malignancy to suggest increased risk for pathological fracture. No history of nephrolithiasis to suggest symptomatic ureterallithiasis so I did not feel that the patient required CT scan. No nausea vomiting nor abdominal pain so my suspicion is low for appendicitis. No dysuria or frequency to suggest UTI. Patient denies IV drug use and has not had any fevers so my suspicion is low for spinal epidural abscess. Patient is not anticoagulated and has not had any instrumentation so my suspicion is low for spinal epidural hematoma. No loss of bowel or bladder control to suggest cauda equina syndrome and no saddle anesthesia. Patient has mild decreased sensation in her right compared to her left lower extremity however is neurologically intact so my suspicion for any spinal cord impingement is low so I do not feel that the patient requires an emergent MRI. She has had no B symptoms to suggest increased risk for malignancy. She has a warm well perfused distal right lower extremity some not concern for critical limb ischemia so I do not feel that the patient requires a CT angiogram with runoffs. I suspect that she most likely has paraspinal muscle spasm for which we will treat her with diazepam and low-dose ibuprofen as patient had reassuring renal function earlier this year. 3:30 PM Patient feeling markedly improved. Screening x-ray unremarkable. Patient I discussed return indications including worsening pain any subsequent falls or any fevers. I advised PCP follow-up. She understood her return indications and was discharged with an empiric trial of expectant outpatient management. HPI This is a 73-year-old female arrives emergency department via private vehicle in the setting of shooting right-sided low back pain. Patient notes that she twice fell earlier this fall. She fell on April 01 slipping on the tailgate. Subsequently she slipped on some wet ground 9 days ago and landed both times on her bottom. She now has pain that radiates down from her right lower back along the outside of her right leg into her right foot. She denies loss of bowel or bladder control. She denies saddle anesthesia. She denies any recent back surgeries. She denies any history of malignancy. She denies IV drug use. She denies fevers dysuria frequency chest pain shortness of breath. She is not anticoagulated. She denies history of nephrolithiasis. Exam General: Well-appearing in no acute distress speaking in complete sentences. Head: Normocephalic, atraumatic. Eye: Extraocular eye movements intact. No conjunctival injection. No scleral icterus. Ear, nose, mouth, throat: Grossly normal inspection. Normal voice, handling secretions normally. Neck: Trachea midline. Cardiovascular: Well-perfused distal extremities. Respiratory: Nonlabored respiration. Gastrointestinal: Nondistended abdomen. Soft nontender. Back: No midline thoracic nor lumbar spinal tenderness. Mild right-sided paraspinal muscle tenderness. No rash to back. Musculoskeletal: No edema. Moving all 4 extremities spontaneously. 5 out of 5 bilateral strength in dorsi and plantarflexion. Mildly decreased sensation dorsal aspect of right foot compared to left. Bilateral feet warm well-perfused 2+ bilateral PT and DP pulses. Cap refill less than 2 seconds in the right toes. 2+ patellar reflexes bilaterally. No clonus bilaterally. Pelvis stable. No significant tenderness on passive range of motion of right lower extremity. Skin: Normal for age and race, grossly normal temperature and turgor. No acute rash. Neurologic: Alert and appropriate, no apparent acute deficits. Psychiatric: Mood and manner are appropriate. Grooming and personal hygiene are appropriate. Related Data Home Medications ?Medication ?Instructions ?Recorded ?Confirmed acetaminophen 325 mg tablet 650 mg (2 x 325 mg) PO Q6H PRN PRN 07/25/17 05/11/24 (Tylenol) estradiol 0.01% (0.1 mg/gram) 1 appful vaginal DAILY #42.5 grams 10/23/22 05/11/24 vaginal cream dicyclomine 10 mg capsule 20 mg (2 x 10 mg) PO TID PRN 07/06/23 05/11/24 abdominal pain #90 tab-caps albuterol sulfate 90 mcg/actuation 1 - 2 puff inhalation Q4H PRN 08/14/23 05/11/24 aerosol inhaler (Ventolin HFA) shortness of breath or wheezing #8.5 grams aspirin 81 mg chewable tablet 81 mg PO DAILY 08/14/23 05/11/24 atorvastatin 40 mg tablet See Rx Instructions .Route 09/19/23 05/11/24 .COMPLEX #90 tabs losartan 50 mg-hydrochlorothiazide See Rx Instructions .Route 09/19/23 05/11/24 12.5 mg tablet .COMPLEX #90 tabs venlafaxine 37.5 mg 37.5 mg PO DAILY #90 caps 09/24/23 05/11/24 capsule,extended release 24 hr omeprazole 20 mg capsule,delayed 20 mg PO DAILY #90 caps 12/17/23 05/11/24 release diazepam 5 mg tablet 5 mg PO QD-TID PRN #5 tabs 05/11/24 Previous Rx's ?Medication ?Instructions ?Recorded acetaminophen 325 mg tablet 650 mg (2 x 325 mg) PO Q6H PRN PRN 07/25/17 (Tylenol) estradiol 0.01% (0.1 mg/gram) 1 appful vaginal DAILY #42.5 grams 10/23/22 vaginal cream dicyclomine 10 mg capsule 20 mg (2 x 10 mg) PO TID PRN 07/06/23 abdominal pain #90 tab-caps albuterol sulfate 90 mcg/actuation 1 - 2 puff inhalation Q4H PRN 08/14/23 aerosol inhaler (Ventolin HFA) shortness of breath or wheezing #8.5 grams atorvastatin 40 mg tablet See Rx Instructions .Route 09/19/23 .COMPLEX #90 tabs losartan 50 mg-hydrochlorothiazide See Rx Instructions .Route 09/19/23 12.5 mg tablet .COMPLEX #90 tabs venlafaxine 37.5 mg 37.5 mg PO DAILY #90 caps 09/24/23 capsule,extended release 24 hr omeprazole 20 mg capsule,delayed 20 mg PO DAILY #90 caps 12/17/23 release diazepam 5 mg tablet 5 mg PO QD-TID PRN #5 tabs 05/11/24 Allergies Allergy/AdvReac Type Severity Reaction Status Date / Time sumatriptan Allergy Severe Anaphylaxsi Verified 05/11/24 14:24 s ciprofloxacin Allergy Unknown Skin Rash Verified 05/11/24 14:24 morphine AdvReac Severe Nausea Verified 05/11/24 14:24 doxycycline monohydrate AdvReac Intermediate vomiting Verified 05/11/24 14:24 (From Vibramycin) Penicillins AdvReac Intermediate Nausea Verified 05/11/24 14:24 tramadol AdvReac Intermediate dizzyness, Verified 05/11/24 14:24 faintness General Stated Complaint: Orthopedic RAHEL: 4 Course Vital Signs Vital signs: Vital Signs Temperature 36.4 C 05/11/24 14:19 Pulse 79 05/11/24 14:19 Respiratory Rate 15 05/11/24 14:19 Blood Pressure 162/75 H 05/11/24 14:19 Pulse Oximetry 98 05/11/24 14:19 Temperature 36.4 C 05/11/24 14:19 Pulse 79 05/11/24 14:19 Respiratory Rate 15 05/11/24 14:19 Respiratory Effort Normal 05/11/24 14:22 Blood Pressure 162/75 H 05/11/24 14:19 Blood Pressure Position Sitting 05/11/24 14:19 Pulse Oximetry 98 05/11/24 14:19 Oxygen Delivery Method Room Air 05/11/24 14:19 Oxygen Flow Rate 0 05/11/24 14:19 Medical Decision Making Quality:SDOH Health Related Social Needs: No Data to Display PFSH All Active Problems (Updated 05/11/24 @ 15:34 by Rajesh Starks MD) Pain in right paraspinal region (Acute) Depression (Chronic) LT Venlfaxine Stress (Chronic 07/01/17) LT venlafaxine Chronic cough (Acute ~08/2023) COVID toes (Acute ~05/2022) Resolved in CA; better with baby ASA Abdominal adhesions (Acute) Hx recurrent SBO w/ several MIKA. 01/2016 colovaginal fistula. resolved with repeat laparotomy and colostomy. Essential hypertension (Acute 12/22/12) Pure hypercholesterolemia (Acute) GERD (gastroesophageal reflux disease) (Chronic) Periodic limb movements of sleep (Acute ~2018) sleep study 12/18/18 mild borderline Obstructive sleep apnea syndrome, moderate (Acute ~2018) study 12/18/18 dr. 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 for treatment of sleep disordered breathing [place] cardiac risk 10-20% in next 10 years (Acute) Irritable colon (Acute 04/19/13) Migraine (Acute 04/19/13) Family history of breast cancer (Acute 10/25/14) Medical History (Updated 05/11/24 @ 15:34 by Rajesh Starks MD) Anemia SBO (small bowel obstruction) Partial small bowel obstruction Small bowel obstruction SBO (small bowel obstruction) Encounter for screening for other viral diseases Ventral hernia SBO (small bowel obstruction) Lumbosacral neuritis (10/14/12) Thoracic or lumbosacral neuritis or radiculitis, unspecified (10/14/12) Hypertension Ovarian cyst, left Incisional hernia Intestinal anastomotic leak Infertility, female Hypercholesterolemia Migraine Small bowel obstruction due to adhesions Colovaginal fistula Bowel obstruction Leukocytosis (leucocytosis) incision Colovaginal fistula Open abdominal wall wound ostomy Heart burn Postoperative ileus Lumbar disc displacement without myelopathy Lumbar radiculopathy Surgical History Acquired absence of both cervix and uterus (01/13/17) VIVEK for fibroids - part of one ovary remains transforaminal nerve root block (04/27/14) Dr White steroid injection hernia abdominal wall repair (01/23/16) Dr Camargo colovaginal fistula and abd wall hernia (01/23/16) colostomy takedown and MIKA (07/22/17) colostomy takedown and MIKA (11/14/15) Tonsillectomy and adenoidectomy Sigmoidoscopy (05/28/17) Rotator Cuff Repair left shoulder Right subclavian vein triple lumen central line placement (01/23/16) by Dr Horne, access needed for colovaginal fistula repair Oophrectomy, Both Abdominal hysterectomy Colostomy 201401/23/16 diverting transverse loop colostomy Dr Camargo Colectomy and removal of left ovarian cyst 2014 Reduction mammoplasty Arthroplasty of knee right Appendectomy S/P colostomy takedown Family History (Updated 08/14/23 @ 10:35 by Yaneil Beck NP) Mother , Alzheimers Tuberculosis Hyperlipidemia Breast cancer Father Heart disease Other Diabetes Ovarian cancer Social History Smoking/Tobacco Use Status: Never Smoking risk assessment performed?: Yes Alcohol Intake: current Alcohol Intake frequency: a few times a month Alcohol type: wine Drug use: Never Substance use type: does not use Household members: significant other Housing: house Number of Children: 1 number of grandchildren: 0 Communication Needs: Corrective Lenses 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
--- NOTE | 2024-05-11 14:45 | DI.RAD_ITS ---
Exam(s) XR HIP RT COMPLETE AP PELVIS EXAM: XR HIP RT COMPLETE AP PELVIS CLINICAL HISTORY: Right hip pain. TECHNIQUE: 2D digital imaging was performed. Two views COMPARISON: No exams were available for comparison FINDINGS: BONES: No acute fracture is present. No bony destructive lesion is seen. JOINTS: No dislocation present. Minimal degenerative changes. SOFT TISSUE: Normal. IMPRESSION: No acute abnormality. DATA REPOSITORY: RADIATION DOSE DELIVERED:
[2024-05-11] MEDS: diazePAM 5 MG TAB PO (14:55)
[2024-05-11] MEDS: Ibuprofen 400 MG TAB PO (14:56)
[2024-05-11 16:05] VITALS: BP 148/71; PULSE 68; RESP 14; TEMP 36.3; O2SAT 99
== END 2024-05-11 16:08 | disposition home or self-care (01) ==
PROVIDERS: Emergency Provider Emergency Medicine; PCP Nurse Practitioner Adult Health
DX: M25.551 Pain in right hip (principal); E78.00 Pure hypercholesterolemia, unspecified; I10 Essential (primary) hypertension; Z79.82 Long term (current) use of aspirin
CPT/HCPCS: 99283; 73502

== ENCOUNTER 2024-06-14 02:06 | Outpatient (CLI) | payer MEDICARE, OTHER, SELFPAY ==
--- NOTE | 2024-06-14 14:03 | DI.RAD_ITS ---
Exam(s) XR LUMBAR SPINE COMPLETE XR SACRUM EXAM: XR LUMBAR SPINE COMPLETE CLINICAL HISTORY: ? fx, particularly in distal lumbar or S 1/2,fell,lumbar spinal stenosis,rt. TECHNIQUE: 2D digital imaging was performed. Five views. COMPARISON: CR XR SACRUM from 06/14/2024 FINDINGS: There are 4 lumbar type vertebral bodies. BONES: The sacrum is partially obscured by overlying stool and bowel gas. No fracture or destructive lesion is visible. Vertebral body heights are maintained. facet hypertrophy identified at L 2 3 through L4-S1.. DISKS: Severe narrowing of the L1-2 and L3-4 disc spaces. Moderate narrowing of the L2-3 and L 4 S1 disc spaces.. ALIGNMENT: Lumbar spinal alignment is within normal limits. SOFT TISSUE: Normal. IMPRESSION: degenerative changes. No evidence of fracture. DATA REPOSITORY: RADIATION DOSE DELIVERED:
== END 2024-06-14 02:26 ==
LOC: DI 02:06
PROVIDERS: PCP Nurse Practitioner Adult Health; Visit Provider Nurse Practitioner Adult Health
DX: M48.061 Spinal stenosis, lumbar region without neurogenic claudication (principal); M54.18 Radiculopathy, sacral and sacrococcygeal region; W19.XXXA Unspecified fall, initial encounter
CPT/HCPCS: 72110; 72220

== ENCOUNTER 2024-12-01 03:56 | Outpatient (CLI) | payer MEDICARE, OTHER, SELFPAY ==
[2024-12-01 11:54] LABS: Anion Gap 7.8 mmol/L (3-11); BUN 24 mg/dL (7-18); CO2 29.2 mmol/L (21.0-32.0); Calcium 9.5 mg/dL (8.5-10.1); Calculated LDL 106 mg/dL (<100); Chloride 102 mmol/L (98-107); Cholesterol 183 mg/dL (<200); Estimated GFR 67.50 (mL/min/1.73m2); Glucose 99 mg/dL (74-106); HDL Cholesterol 58 mg/dL (>or=50); Potassium 3.5 mmol/L (3.5-5.1); Sodium 139 mmol/L (136-145); Triglyceride 99 mg/dL (<150)
== END 2024-12-01 03:57 | disposition home or self-care (01) ==
LOC: LBO 03:56
PROVIDERS: PCP Nurse Practitioner Adult Health; Referring Provider Nurse Practitioner Adult Health; Visit Provider Nurse Practitioner Adult Health
DX: E78.00 Pure hypercholesterolemia, unspecified (principal); Z91.89 Other specified personal risk factors, not elsewhere classified; I10 Essential (primary) hypertension
CPT/HCPCS: 36415; 80048; 80061

== ENCOUNTER 2025-01-26 16:59 | Outpatient (REF) | payer MEDICARE, OTHER, SELFPAY ==
[2025-01-26 20:32] LABS: Glucose Negative (Negative)
[2025-01-26 20:49] LABS: WBC >50 HPF (0-5)
== END 2025-01-26 17:00 | disposition home or self-care (01) ==
LOC: LBN 16:59
PROVIDERS: PCP Nurse Practitioner Adult Health; Visit Provider Nurse Practitioner Adult Health
DX: R30.0 Dysuria (principal)
CPT/HCPCS: 87077; 81003; 81015; 87086; 87186

== ENCOUNTER → 2025-04-25 02:16 | Outpatient (CLI) | payer MEDICARE, OTHER, SELFPAY ==
--- NOTE | 2025-04-25 07:45 | DI.RAD_ITS ---
Exam(s) XR ARTHRITIS SERIES EXAM: XR ARTHRITIS SERIES CLINICAL HISTORY: ? erosions c/w RA/inflam;R PIP pain;,rt hand pain,m79.641. TECHNIQUE: 2D digital imaging was performed. Two images were obtained. COMPARISON: No exams were available for comparison FINDINGS: BONES: No acute fracture is present. No bony destructive lesion is seen. JOINTS: No dislocation present. There is sparing of the metacarpophalangeal joints. There is joint space narrowing and mild spurring seen in the interphalangeal joints of the hands bilaterally. The findings are most marked at the PIP joints of the ring fingers bilaterally. No erosions are seen. There are similar changes also seen at the triscaphe joints bilaterally. SOFT TISSUE: Normal. IMPRESSION: Osteoarthritis of the hands. No erosive changes are seen. DATA REPOSITORY: RADIATION DOSE DELIVERED:
== END ==
LOC: DI 02:16
PROVIDERS: PCP Nurse Practitioner Adult Health; Visit Provider Nurse Practitioner Adult Health
DX: M19.041 Primary osteoarthritis, right hand (principal)
CPT/HCPCS: 73120

== ENCOUNTER → 2025-05-05 00:46 | Outpatient (CLI) | payer MEDICARE, OTHER, SELFPAY ==
--- NOTE | 2025-05-05 06:45 | DI.MAMMO_ITS ---
Exam(s) MAMMO SCREENING EXAM: MAMMO SCREENING CLINICAL HISTORY: screening,Z12.39. TECHNIQUE: Bilateral full field digital CC and MLO mammographic images were obtained with 3D tomosynthesis and utilizing computer aided detection (CAD). COMPARISON: Prior mammograms were reviewed. FINDINGS: Fibroglandular tissue pattern is again noted be heterogeneously dense. Scattered benign microcalcifications are again noted in both breasts. There are no obvious new spiculated masses nor new malignant appearing microcalcification groups. There is no significant architectural distortion nor skin thickening-retraction. IMPRESSION: No radiographic evidence of malignancy. BI-RADS Category 2 - Benign Findings Breast Density - Category C - The breast are heterogeneously dense, which may obscure small masses. Breast density Category C or D implies that the patient has dense breast tissue. Dense breast tissue can make it harder to find cancer on a mammogram. Dense breast tissue is also associated with an increased risk of breast cancer. This information about the result of the mammogram report was provided to the patient to raise their awareness. Use this report when you speak with the patient about their risks for breast cancer, which includes their family history. At that time, you may recommend additional screening tests (Ultrasound or MRI) as these tests may add significant information. A negative radiographic report should not delay biopsy if a dominant or clinically suspicious mass is present. Up to ten percent of cancers are not identified on mammography. A negative report may reinforce clinical impression. Adenosis and dense breasts may obscure an underlying neoplasm. False positive reports average 6 to 10%. Patient will receive a letter notifying them of these results.
== END ==
LOC: DI 00:46
PROVIDERS: PCP Nurse Practitioner Adult Health; Visit Provider Nurse Practitioner Women's Health
DX: Z12.31 Encounter for screening mammogram for malignant neoplasm of breast (principal); R92.323 Mammographic fibroglandular density, bilateral breasts; R92.333 Mammographic heterogeneous density, bilateral breasts
CPT/HCPCS: 77063; 77067